=== PATIENT | female | born 1990 | race Caucasian/White ===

== ENCOUNTER 2018-05-06 06:55 | Inpatient (IN) | payer MEDICAID, SELFPAY ==
[2018-05-06 07:25] VITALS: BMI 27.3
[2018-05-06] MEDS: Lactated Ringers 1,000 ML 50 ML IV ×2 (07:40→16:06)
[2018-05-06 08:05] LABS: Hematocrit 35.1 % (37-47); Hemoglobin 11.5 g/dl (12.0-15.0); Mean Corp Hgb Conc 32.8 g/gl (32-36); Mean Corpuscular Hgb 28.3 pg (27.0-32.0); Mean Corpuscular Volume 86.5 fL (81-99); Platelet Count 322 K/mm3 (150-450); RBC Distribution Width CV 13.7 % (11.6-14.6); RBC Distribution Width SD 43.2 fl (35.1-43.9); Red Blood Count 4.06 M/mm3 (4.2-5.4); White Blood Count 10.6 K/mm3 (4.4-11.0)
[2018-05-06 08:07] LABS: Scan Indicated on CBC? Y/N NO
[2018-05-06] MEDS: Oxytocin 30 units/NS 500 ml 30 UNITS/500 ML IV.SOLN IV (08:30)
[2018-05-06] MEDS: 0.9% Normal Saline 100 ML IV.SOLN. INTRA-UTER (08:44)
--- NOTE | 2018-05-06 09:01 | PCM.HP.OB ---
- Problem List (1) IUGR (intrauterine growth restriction) Status: Acute (2) Tobacco use Status: Acute (3) History of marijuana use Status: Acute (4) History of anorexia nervosa Status: Acute (5) History of depression Status: Acute (6) History of anxiety Status: Acute (7) Encounter for induction of labor Status: Acute History Date of Admission: 05/06/18 Final BISI: 05/06/18 Final BISI Source: US <20 weeks Gestational age: 40 Weeks and 0 Days History of this : This is a 28 year-old, G [2], P [1001], at 39 weeks gestational age for Induction of labor due to IUGR. OB history with vacuum extraction for maternal exhaustion. Allergies No Known Allergies Allergy (Verified 02/23/17 01:26) Home Medications: Home Medications Penicillin V Potassium 500 mg PO 4X/DAY #19 tablet 02/23/17 Acetaminophen [Tylenol] 325 mg PO PRN 05/06/18 Omeprazole 20 mg PO 05/06/18 Pnv No.122/Iron/Folic Acid [ Multi Tablet] 1 each PO 05/06/18 Smoking Status: Current every day smoker Alcohol: None Substance Use Type: Marijuana Number of Fetus(es): 1 Heart Tracin, moderate variability, accels, no decels, Category 1 TOCO Analysis: No contractions History Past Pregnancies: Past Pregnancies Delivery Date Name GA/Weeks Outcome Route Weight Gender Labor Length Anesthesia Delivery Location Provider FOB Labs: RPR negative Rubella positive HBsAG negative HIV negative O positive GC/CT negative Urine tox screen positive cannabinoids Expected Delivery Method: Spontaneous Vaginal Review of Systems Constitutional: Denies: Chills, Fever, Weight Change HEENT: Denies: Head Aches, Sinus Congestion, Sinus Drainage Cardiovascular: Denies: Chest Pain, Palpitations Respiratory: Denies: Cough, Shortness of breath at rest, Sputum production Gastrointestinal: Denies: Abdominal Pain, Nausea, Vomiting Genitourinary: Denies: Dysuria Musculoskeletal: Denies: Joint Pain, Joint Tenderness Skin: Denies: Rash, Wounds Neurological: Denies: Numbness, Tingling, Focal weakness Psychiatric: Denies: Anxiety, Depression, Homicidal Ideations, Suicidal Ideations Hematologic/ Lymphatic: Denies: Easy Bruising, Easy Bleeding Physical Exam General: Alert, Oriented x3, No apparent distress HEENT: Atraumatic, Normocephalic. Negative for: Thyromegaly, Lymphadenopathy Cardiovascular: Regular rate, Regular Rhythm, No murmurs Lungs: Clear to auscultation, Normal air movement, No rhonchi, No wheeze Abdomen: Bowel Sounds Present, Gravid Extremities:: No edema Neurological: Deep Tendon Reflexes 2+/4 and Symmetrical, Neuro grossly intact BRIDGE BUILDER: Normal external genitalia Estimated gestational size: Appropriate for gestational size Presentation: Cephalic Cervix Dilation (cm): 1 - Dillard catheter inserted without difficulty. Patient tolerated well. Instilled with 30ml NS Station: -3 Effacement (%): 50 Assessment/Plan All Active Problems IUGR (intrauterine growth restriction) (Acute) Tobacco use (Acute) History of marijuana use (Acute) History of anorexia nervosa (Acute) History of depression (Acute) History of anxiety (Acute) Encounter for induction of labor (Acute) This is a 28 year-old, G [2], P [1001], at 39 weeks gestational age. A:Induction of Labor for IUGR Category 1 FHT P: 1) Admit to L&D for medically indicated IOL due to IUGR. Routine orders 2) Dillard catheter placement for cervical ripening and low dose Pitocin. 3) Urine tox screen, last use of marijuana 2 weeks ago. 4) Continuous monitoring. Planning epidural for pain management. 5) notified of patient admission and status. Collaborative physician at this time. 6) Planning LARC, Nexplanon Conchita Zarco, JUANCARLOS, CNM
[2018-05-06 09:15] LABS: Amphetamine Urine VISTA NEGATIVE (<1000 ng/mL); Barbiturate Urine VISTA NEGATIVE (< 200 ng/mL); Benzodiazepine Urine VISTA NEGATIVE (< 200 ng/mL); Cocaine Urine VISTA NEGATIVE (< 300 ng/mL); Ecstacy Urine VISTA NEGATIVE (< 500 ng/mL); Methadone Urine VISTA NEGATIVE (< 300 ng/mL); PCP Urine VISTA NEGATIVE (< 25 ng/mL); THC Urine VISTA POSITIVE (< 50 ng/mL); Vista UDS pH Range 6
--- NOTE | 2018-05-06 16:51 | PCM.PN.BLA ---
Progress Note Patient getting more uncomfortable with contractions. Breathing through them. Using nitrous oxide for some relief. Would like to have epidural soon as pain is getting to her tolerance level. Cervix is 4, soft, still posterior, 70% effaced and -2 station. Artificial rupture membranes was performed with return of moderate amount of clear fluid. heart tones are category 1. Continue expectant management. Estimated weight is less than 4000 g clinically and pelvis is clinically adequate to expect vaginal delivery. Patient may have epidural as needed. Patient continue Pitocin induction and titrate Pitocin as needed.
[2018-05-06] MEDS: Ondansetron 4 MG/2 ML Vial IV (17:45)
[2018-05-06] MEDS: fentaNYL-bupivacaine (epidural) 100 ML BAG EPIDURAL (18:03)
[2018-05-06] MEDS: Oxytocin 30 units/NS 500 ml 30 UNITS/500 ML IV.SOLN 334 UNITS IV (19:02)
--- NOTE | 2018-05-06 19:29 | PCM.OB.VAG ---
Vaginal Delivery Maternal Presentation: Medically Indicated Induction Method of Induction: Pitocin, Dillard Bulb, Amniotomy Medical Reason for Induction: - - SGA Amniotic Membrane Rupture Type: Artificial Amniotic Fluid Description: Clear Final BISI: 05/06/18 Gestational age: 40 Weeks and 0 Days Date of Procedure: 05/06/18 Pre-Operative Diagnosis: 39 week multigravida with suspected IUGR Post-Operative Diagnosis: labor Surgery/ Procedure Performed: Spontaneous Vaginal Delivery Type of Anesthesia: Epidural Description of Procedure: A vigorous female infant was delivered ALESSIO over an intact perineum. A loose nuchal cord ?1 was easily reduced. The remainder the was delivered with maternal pushing and gentle traction only in less than 15 seconds. The Pitocin infusion was initiated for active management of the third stage. The cord was clamped and cut after 1 minute. The infant was attended to by the waiting nursing staff. Pitocin was initiated after the was delivered and after 17 minutes of fundal massage, the placenta would not deliver spontaneously. At that point I manually extracted the placenta intact. Another gentle sweep of the uterus was performed to confirm there were no remaining membranes or placental fragments. The cervix and vagina were intact. Sponge and needle counts were correct. A vaginal sweep was completed by me. Presentation: ALESSIO Placental Delivery Description: Manual Removal Placenta Disposition: [facility] Cord Vessel Description: 3 Vessels Cord Entanglement: Around neck x 1, loose Drain: Dillard to straight drain Estimated Blood Loss: 300 A gender: Female (1 minute): 9 (5 minute): 9 Episiotomy Description: None Laceration: None Medications given after delivery: IV Pitocin Complications: None
[2018-05-06] MEDS: Oxytocin 30 units/NS 500 ml 30 UNITS/500 ML IV.SOLN 167 UNITS IV (19:32)
[2018-05-06] MEDS: Methylergonovine 0.2 MG/ML Ampul IM (19:57)
[2018-05-06] MEDS: 0.9% Saline Lock 10 ML Syringe IV (20:36)
[2018-05-06 23:13] VITALS: BP 107/65; PULSE 96; RESP 16; TEMP 36.6
[2018-05-07 03:55] VITALS: BP 107/57; PULSE 69; RESP 16; TEMP 36.8
[2018-05-07] MEDS: Naproxen 250 MG Tablet PO ×2 (04:00→12:20)
[2018-05-07 07:50] VITALS: BP 97/42; PULSE 62; RESP 16; TEMP 36.6; O2SAT 98
--- NOTE | 2018-05-07 08:32 | PCM.PN.OB ---
Patient Problems: Active and Suspected Problems IUGR (intrauterine growth restriction) (Acute) Tobacco use (Acute) History of marijuana use (Acute) History of anorexia nervosa (Acute) History of depression (Acute) History of anxiety (Acute) Encounter for induction of labor (Acute) Subjective: Pain well controlled, average lochia. - Physical Exam General: Alert, Cooperative, No apparent distress Abdomen: Soft, Non-Distended, Tender - Appropriate, fundus is firm and approximately 3 cm below the umbilicus. Vital Signs Temp Pulse Resp BP 98.2 F 69 16 107/57 L 05/07/18 03:55 05/07/18 03:55 05/07/18 03:55 05/07/18 03:55 Oxygen Delivery Method Room Air Weight: 74.5 kg Body Mass Index (BMI) 27.3 Intake and Output for Last 24 Hours 05/05/18 05/06/18 05/07/18 23:59 23:59 23:59 Intake Total 2073.9 / 2073.9 Output Total 1850 / 1850 300 / 300 Balance 223.9 / 223.9 -300 / -300 Laboratory Tests Past 24 Hrs 05/06/18 05/06/18 07:40 08:45 Urine Opiates Screen NEGATIVE Urine Methadone Screen NEGATIVE Ur Barbiturates Screen NEGATIVE Ur Phencyclidine Scrn NEGATIVE Ur Amphetamines Screen NEGATIVE U Methamphetamin-MDMA NEGATIVE U Benzodiazepines Scrn NEGATIVE Urine Cocaine Screen NEGATIVE U Cannabinoids Screen POSITIVE H Ur Drug Screen Comment Blood Type O POSITIVE Antibody Screen NEGATIVE Medical Necessity - Tobacco Use Smoking Status: Current every day smoker Assessment/Plan All Active Problems IUGR (intrauterine growth restriction) (Acute) Tobacco use (Acute) History of marijuana use (Acute) History of anorexia nervosa (Acute) History of depression (Acute) History of anxiety (Acute) Encounter for induction of labor (Acute) day #1 status post spontaneous vaginal delivery. Infant is doing well. Routine care. Likely discharge home tomorrow.
--- NOTE | 2018-05-07 08:35 | DCINST_ITS ---
Discharge Diet: No Restrictions Discharge Activity: Return to Normal Activity, May not drive while taking narcotic pain medications., May Shower May resume sexual activity in: 4-6 weeks Additional Activity Instructions:: Nothing in the vagina for 4-6 weeks. You may return to work/school in 6 weeks. Call your doctor if your incision/area has: Continuous Slow Oozing, Sudden Increased Bleeding, Increased Pain/ Swelling, Increased Redness, Foul Smelling Discharge Additional Instructions: If you experience any of the following, contact your healthcare provider. * Bleeding that soaks a pad every hour for 2 hours * Fever 100.4 or higher * Unrelieved incision or abdominal pain * Swelling, redness, discharge or bleeding from your incision or episiotomy site * Your incision begins to separate * Problems urinating (including inability to urinate or burning while urinating). * Visual changes * Severe headache * Flu-like symptoms * Pain or redness in one of both of your breasts * Pain, warmth, tenderness or swelling in your legs, especially the calf area * Frequent nausea and vomiting * Symptoms of depression or anxiety If you experience any of the following, call 911 or go to the nearest Emergency Room. * Chest pain * Problems breathing * Seizure activity * Partial or complete paralysis of a body part, slurred speech, weakness or drooping of the face, or a sudden inability to walk or hold your balance Allergies/Adverse Reactions: Allergies No Known Allergies Allergy (Verified 02/23/17 01:26) Medications to take at Discharge Omeprazole 20 mg PO 05/06/18 Pnv No.122/Iron/Folic Acid [ Multi Tablet] 1 each PO 05/06/18 Ibuprofen [Motrin] 800 mg PO TID PRN PRN #60 tablet 05/07/18 The following prescriptions were given: Ibuprofen [Motrin] 800 mg PO TID PRN PRN #60 tablet PRN Reason: Pain Please Follow Up With: Leanne Rascon MD - [phone] When: Call to make an appointment in your providers office in 1-2 and 6 weeks or sooner as needed. Primary Care Physician: Care Physician,No Primary [Primary Care Provider] - Test Results: Test results from this visit will be discussed in further detail at your follow- up appointment, if applicable.
[2018-05-07] MEDS: Senna/Docusate Sodium 1 Tablet PO (10:07)
[2018-05-07 12:00] VITALS: BP 112/69; PULSE 70; RESP 18; TEMP 36.6; O2SAT 97
[2018-05-07 16:00] VITALS: BP 94/57; PULSE 86; RESP 16; TEMP 36.6; O2SAT 97
--- NOTE | 2018-05-07 16:29 | CASEMGMT ---
Social Work Labor and Delivery Unit Consult received from the imcu nurse due to maternal substance use and history of depression. Noted that today the patient/mother of baby (MOB) answered yes to both questions on the PHQ2, and with a subsequent PHQ9 score of 5. Chart has been reviewed. Plan: See MOB 05.08.2018, likely in the morning, for social work assessment and determination of resources needs. -TANA Murguia, DIRECTOR OF COLLECTIONS AND ARCHIVES
[2018-05-07] MEDS: Acetaminophen 500 MG Tablet 1000 MG PO (18:26)
[2018-05-07 20:35] VITALS: BP 110/65; PULSE 74; RESP 16; TEMP 36.6; O2SAT 97
[2018-05-08 02:45] VITALS: BP 112/66; PULSE 66; RESP 14; TEMP 36.5; O2SAT 100
[2018-05-08 08:07] VITALS: BP 95/62; PULSE 59; RESP 18; TEMP 36.4; O2SAT 96
[2018-05-08] MEDS: Senna/Docusate Sodium 1 Tablet PO (08:15)
--- NOTE | 2018-05-08 08:38 | PCM.PN.OB ---
Patient Problems: Active and Suspected Problems IUGR (intrauterine growth restriction) (Acute) Tobacco use (Acute) History of marijuana use (Acute) History of anorexia nervosa (Acute) History of depression (Acute) History of anxiety (Acute) Encounter for induction of labor (Acute) Subjective: Patient doing well. Ambulating and voiding without difficulty. Tolerating regular diet without nausea or vomiting. Lochia decreasing. Breast-feeding without difficulty or breast complaints. Cramping is well controlled. Denies chest pain, shortness of breath, leg pain. - Physical Exam General: Alert, Oriented x3 HEENT: Atraumatic Lungs: - - No increased resp effort Abdomen: Soft, Non Tender, - - FF@U-1 Extremities: No edema, No Calf Tenderness Skin: No rashes Neurological: Neuro grossly intact Psych/Mental Status: Normal Affect, Appropriate Vital Signs Temp Pulse Resp BP Pulse Ox 97.5 F L 59 L 18 95/62 96 05/08/18 08:07 05/08/18 08:07 05/08/18 08:07 05/08/18 08:07 05/08/18 08:07 Oxygen Delivery Method Room Air Weight: 164 lb 3.91 oz Body Mass Index (BMI) 27.3 Intake and Output for Last 24 Hours 05/06/18 05/07/18 05/08/18 23:59 23:59 23:59 Intake Total 2073.9 / 2073.9 Output Total 1850 / 1850 300 / 300 Balance 223.9 / 223.9 -300 / -300 Medical Necessity - Tobacco Use Smoking Status: Current every day smoker Assessment/Plan All Active Problems IUGR (intrauterine growth restriction) (Acute) Tobacco use (Acute) History of marijuana use (Acute) History of anorexia nervosa (Acute) History of depression (Acute) History of anxiety (Acute) Encounter for induction of labor (Acute) day #2 s/p - Doing well and feels ready to go home - - PPBC: Desires Nexplanon. Reviewed r/b/a and will place prior to d/c home - Dispo: D/c home. Discharge instructions reviewed
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
[2018-05-08] MEDS: Etonogestrel 68 MG IMPLANT SQ (11:46)
[2018-05-08] MEDS: Naproxen 250 MG Tablet PO (11:55)
--- NOTE | 2018-05-08 12:09 | PCM.OP.BLANK ---
Problem List (1) Nexplanon insertion Status: Acute Operative Report Date of Procedure: 05/08/18 Preoperative diagnosis: desires long-term reversible contraception Postoperative diagnosis: as above Procedure: Nexplanon placement Performing physician: Marsha Cintron DO Complications: none EBL: minimal, less than 50 cc Insertion site was selected 9 cm from the medial epicondyle of the patient's left arm. Procedure area was prepped and draped in sterile fashion using ChloraPrep. 3 cc of 1% lidocaine was used for subcutaneous anesthesia. The Nexplanon trocar was inserted subcutaneously and the Nexplanon capsule was delivered subcutaneously. The trocar was removed from the insertion site. The Nexplanon capsule was palpated by the provider, as well as the patient. A pressure dressing was applied and patient was instructed to leave the pressure dressing on for 24 hours. The patient tolerated the procedure well without complications. Standard procedure care was explained and return precautions were given.
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
[2018-05-08 14:07] VITALS: BP 116/52; PULSE 76; RESP 16; TEMP 36.7; O2SAT 97
--- OUTSIDE RECORDS SUMMARY | 2018-06-29 22:34 | XMS RPT_ITS ---
:1990 Author Organization OHIP Care Team Providers Name Role Phone ILANA ISIDRO (DILIA) Attending Unavailable ROSI LITTLE (CNM) Attending Unavailable ANABEL, ROSI (CNM) Attending Unavailable ANABEL, ROSI (CNM) Referring Unavailable ALFONSO, EM A Attending Unavailable ANABEL, ROIS (CNM) Referring Unavailable ANABEL ROSI (CNM) Referring Unavailable ILANA ISIDRO (DILIA) Attending Unavailable ANABEL ROSI (CNM) Attending Unavailable ANABEL, ROSI (CNM) Referring Unavailable ANABEL, ROSI (CNM) Referring Unavailable CONCHITA ZARCO (CNM) Attending Unavailable ANABEL, ROSI (CNM) Referring Unavailable ALFONSO, EM A Attending Unavailable ANABEL ROSI (CNM) Referring Unavailable TAVARES BROWN Attending Unavailable ANABEL, ROSI (CNM) Referring Unavailable ANABEL, ROSI (CNM) Attending Unavailable ALFONSO, EM A Attending Unavailable KEVIN KARMAIDA Referring Unavailable WISWELL, BRISEYDA Attending Unavailable WISWELL, BRISEYDA Referring Unavailable CONCHITA ZARCO (CNM) Attending Unavailable ALFONSO, EM A Attending Unavailable ALFONSO, EM A Referring Unavailable ALFONSO, EM A Attending Unavailable ALFONSO, EM A Referring Unavailable DAVID STOVALL Attending Unavailable ALFONSO, EM A Referring Unavailable ALFONSO, EM A Attending Unavailable ALFONSO, EM A Referring Unavailable JUANJO ALEX Attending Unavailable ALFONSO, EM A Referring Unavailable ALFONSO, EM A Attending Unavailable WILMAN, DAVID L Referring Unavailable WILMAN, DAVID L Attending Unavailable WILMAN, DAVID L Referring Unavailable ALFONSO, EM A Attending Unavailable WILMAN, DAVID L Referring Unavailable ANABEL, ROSI (CNM) Attending Unavailable WILMAN, DAVID L Referring Unavailable ALFONSO, EM A Attending Unavailable WILMAN, DAVID L Referring Unavailable ALFONSO, EM A Attending Unavailable WILMAN, DAVID L Referring Unavailable ANABEL, ROSI (CNM) Attending Unavailable WILMAN, DAVID L Referring Unavailable ANABEL, ROSI (CNM) Attending Unavailable WILMAN, DAVID L Attending Unavailable WILMAN, DAVID L Referring Unavailable ALFONSO, EM A Attending Unavailable WILMAN, DAVID L Referring Unavailable Wilman, David Admitting Unavailable Wilman, David Attending Unavailable Primay Care Physicia, No Primary Care Unavailable PROBLEMS PROBLEMS DATE TYPE CONDITION / CODE ATTENDING STATUS SOURCE 02/21/2018 Active 28 weeks gestation NA Active [facility] of / [facility] Z3A.28(ICD-10) Repository 11/01/2017 Active Encounter for Active [facility] supervision of [facility] other normal Repository , first trimester / Z34.81(ICD-10) 11/01/2017 Active Encounter for Active [facility] screening for Repository nuchal translucency / Z36.82(ICD-10) 11/01/2017 Active Encounter for Active [facility] screening, Repository unspecified / Z36.9(ICD-10) 06/02/2017 Active Unknown / DWAINE Active [facility] UNK(Unknown) ILANA (DILIA) [facility] Repository PROCEDURES PROCEDURES No Procedure Records FoundRESULTS RESULTS PROGRESS Observed: 05/08/2018 Status: COMPLETED Source: [place] 3:02 PM [facility] RE[facility] HNO ID: [id number] Author: Ines Johnson LPN Service: (none) Author Type: (none) Type: Progress Notes Filed: 05/08/2018 3:05 PM Note Text: Pt delivered via at [facility] on 05/06/[address] Stovall. See OB Outcome note. Ines Johnson LPN OPERATIVE REPORT Observed: 05/08/2018 Status: F Source: [place] 12:13 PM [facility] REPOSITORY [facility] Medical Records Department [address] [place] [address] Operative Report 05/08/18 1209 MR#: [id number] Acct: [id number] Name: CARLY TIAN Rep #: [id number] : 1990 28 From: Briseyda Cintron DO PCP: Care Physician, No Primary Status: ADM IN Y Location: [place] [address] Problem List (1) Nexplanon insertion Status: Acute Operative Report Date of Procedure: 05/08/18 Preoperative diagnosis: desires long-term reversible contraception Postoperative diagnosis: as above Procedure: Nexplanon placement Performing physician: Briseyda Cintron DO Complications: none EBL: minimal, less than 50 cc Insertion site was selected 9 cm from the medial epicondyle of the patient's left arm. Procedure area was prepped and draped in sterile fashion using ChloraPrep. 3 cc of 1% lidocaine was used for subcutaneous anesthesia. The Nexplanon trocar was inserted subcutaneously and the Nexplanon capsule was delivered subcutaneously. The trocar was removed from the insertion site. The Nexplanon capsule was palpated by the provider, as well as the patient. A pressure dressing was applied and patient was instructed to leave the pressure dressing on for 24 hours. The patient tolerated the procedure well without complications. Standard procedure care was explained and return precautions were given. 05/08/18 1213 <Electronically signed by Briseyda Cintron DO> Date Briseyda Cintron DO CC: No Primary Care Physician; Briseyda Cintron DO Signed HOSP Observed: 05/08/2018 Status: COMPLETED Source: [place] 12:00 AM [facility] REPOSITORY Patient Update (WOOB) CARLY TIAN ([id number]) 1990 F Date Time Provider Department 05/08/18 DAVID STOVALL During your visit today, we recorded the following information about you: Ines Johnson LPN 05/08/2018 3:05 PM Signed Pt delivered via at [facility] on 05/06/[address] Stovall. See OB Outcome note. Ines Johnson LPN Allergies As of Date: 05/08/2018 (No Known Allergies) Date Reviewed: 05/03/2018 Reviewed by: Em Alfonso - Fully Assessed Prescriptions as of 05/08/2018 Sig: FLUTICASONE 50 MCG/ACTUATION * Use 2 Sprays in each nostril * Patient not taking: Reported on 04/30/2018 OMEPRAZOLE 20 MG CAPSULE,LINA* Take 1 capsule by mouth once * ACETAMINOPHEN 325 MG CAPSULE Take by mouth as needed. VITAMIN WITH CALCIUM* Take 1 tablet by mouth once d* Problem List As Of Date 05/08/2018 Noted Resolved SUPERVIS NORMAL 1ST PREG [Z34.00] INVALID FOR*01/11/2008 Dry skin [L85.3] INVALID FOR*03/07/2018 Brittle hair [L67.8] INVALID FOR*03/21/2018 Thoracic back pain [M54.6] INVALID FOR*03/21/2018 Tobacco abuse [Z72.0] INVALID FOR* Insomnia [G47.00] INVALID FOR*03/21/2018 More... Depression with anxiety [F41.8] INVALID FOR* More... Shoulder pain, acute [M25.519] INVALID FOR*03/07/2018 More... Anxiety [F41.9] INVALID FOR* More... Back pain [M54.9] INVALID FOR* More... GERD (gastroesophageal reflux disease) [K21.9] INVALID FOR* VANNA (obstructive sleep apnea) [G47.33] INVALID FOR*05/13/2014 OCD (obsessive compulsive disorder) [F42.9] INVALID FOR* RLS (restless legs syndrome) [G25.81] INVALID FOR* Sleep paralysis [G47.8] INVALID FOR* EMILIANO (generalized anxiety disorder) [F41.1] INVALID FOR* Dizzy spells [R42] INVALID FOR*03/21/2018 Acute appendicitis without mention of peritonit*INVALID FOR*03/07/2018 Nausea/vomiting in [O21.9] INVALID FOR*03/07/2018 More... Tobacco use in , antepartum [O99.330] INVALID FOR* More... Patient requested diagnostic testing [Z01.89] INVALID FOR*03/07/2018 More... History of marijuana use [Z87.898] INVALID FOR* More... Low-lying placenta [O44.40] INVALID FOR* More... Uterine size-date discrepancy in third trimeste*INVALID FOR* More... History of anorexia nervosa [Z86.59] INVALID FOR* More... Encounter Status:Closed by INES JOHNSON LPN on 05/08/18 DISCHARGE INSTRUCTION Observed: 05/07/2018 Status: F Source: [employer] 8:35 AM [facility] REPOSITORY [facility] Medical Records Department [address] [place] [address] Instructions for Home/Discharge Instructions 05/07/18 0834 MR#: [id number] Acct: [id number] Name: CARLY TIAN Rep #: [id number] : 1990 28 From: David Stovall MD PCP: Care Physician, No Primary Status: ADM IN Discharge Diet: No Restrictions Discharge Activity: Return to Normal Activity, May not drive while taking narcotic pain medications., May Shower May resume sexual activity in: 4-6 weeks Additional Activity Instructions:: Nothing in the vagina for 4-6 weeks. You may return to work/school in 6 weeks. Call your doctor if your incision/area has: Continuous Slow Oozing, Sudden Increased Bleeding, Increased Pain/ Swelling, Increased Redness, Foul Smelling Discharge Additional Instructions: If you experience any of the following, contact your healthcare provider. * Bleeding that soaks a pad every hour for 2 hours * Fever 100.4 or higher * Unrelieved incision or abdominal pain * Swelling, redness, discharge or bleeding from your incision or episiotomy site * Your incision begins to separate * Problems urinating (including inability to urinate or burning while urinating). * Visual changes * Severe headache * Flu-like symptoms * Pain or redness in one of both of your breasts * Pain, warmth, tenderness or swelling in your legs, especially the calf area * Frequent nausea and vomiting * Symptoms of depression or anxiety If you experience any of the following, call 911 or go to the nearest Emergency Room. * Chest pain * Problems breathing * Seizure activity * Partial or complete paralysis of a body part, slurred speech, weakness or drooping of the face, or a sudden inability to walk or hold your balance Allergies/Adverse Reactions: Allergies No Known Allergies Allergy (Verified 02/23/17 01:26) Medications to take at Discharge Omeprazole 20 mg PO 05/06/18 Pnv No.122/Iron/Folic Acid [ Multi Tablet] 1 each PO 05/06/18 Ibuprofen [Motrin] 800 mg PO TID PRN PRN #60 tablet 05/07/18 The following prescriptions were given: Ibuprofen [Motrin] 800 mg PO TID PRN PRN #60 tablet PRN Reason: Pain Please Follow Up With: David Stovall MD - [phone] When: Call to make an appointment in your providers office in 1-2 and 6 weeks or sooner as needed. Primary Care Physician: Care Physician,No Primary [Primary Care Provider] - Test Results: Test results from this visit will be discussed in further detail at your follow-up appointment, if applicable. 05/07/18 0835 <Electronically signed by David Stovall MD> Date David Stovall MD CC: No Primary Care Physician OPERATIVE REPORT Observed: 05/06/2018 Status: F Source: [employer] 7:33 PM [facility] REPOSITORY [facility] Medical Records Department [address] [place] [address] Operative Report 05/06/18 192 MR#: [id number] Acct: [id number] Name: YRNCARLY L Rep #: [id number] : 1990 28 From: David Stovall MD PCP: Care Physician, No Primary Status: ADM IN Location: [place] [address]1 Vaginal Delivery Maternal Presentation: Medically Indicated Induction Method of Induction: Pitocin, Dillard Bulb, Amniotomy Medical Reason for Induction: - - SGA Amniotic Membrane Rupture Type: Artificial Amniotic Fluid Description: Clear Final BISI: 05/06/18 Gestational age: 40 Weeks and 0 Days Date of Procedure: 05/06/18 Pre-Operative Diagnosis: 39 week multigravida with suspected IUGR Post-Operative Diagnosis: labor Surgery/ Procedure Performed: Spontaneous Vaginal Delivery Type of Anesthesia: Epidural Description of Procedure: A vigorous female infant was delivered ALESSIO over an intact perineum. A loose nuchal cord 1 was easily reduced. The remainder the infant was delivered with maternal pushing and gentle traction only in less than 15 seconds. The Pitocin infusion was initiated for active management of the third stage. The cord was clamped and cut after 1 minute. The was attended to by the waiting nursing staff. Pitocin was initiated after the infant was delivered and after 17 minutes of fundal massage, the placenta would not deliver spontaneously. At that point I manually extracted the placenta intact. Another gentle sweep of the uterus was performed to confirm there were no remaining membranes or placental fragments. The cervix and vagina were intact. Sponge and needle counts were correct. A vaginal sweep was completed by me. Presentation: ALESSIO Placental Delivery Description: Manual Removal Placenta Disposition: [facility] Cord Vessel Description: 3 Vessels Cord Entanglement: Around neck x 1, loose Drain: Dillard to straight drain Estimated Blood Loss: 300 Infant A gender: Female (1 minute): 9 (5 minute): 9 Episiotomy Description: None Laceration: None Medications given after delivery: IV Pitocin Complications: None 05/06/181932 <Electronically signed by David Stovall MD> Date David Stovall MD CC: No Primary Care Physician; David Stovall MD Signed HISTORY AND PHYSICAL Observed: 05/06/2018 Status: F Source: [employer] [facility] 4:47 PM [facility] REPOSITORY [facility] Medical Records Department [address] [place] [address] History and Physical 05/06/18 0901 MR#: [id number] Acct: [id number] Name: CARLY TIAN Rep #: [id number] : 1990 28 From: Conchita Zarco CNM PCP: Care Physician, No Primary Status: ADM IN Y Location: [id number] - Problem List (1) IUGR (intrauterine growth restriction) Status: Acute (2) Tobacco use Status: Acute (3) History of marijuana use Status: Acute (4) History of anorexia nervosa Status: Acute (5) History of depression Status: Acute (6) History of anxiety Status: Acute (7) Encounter for induction of labor Status: Acute History Date of Admission: 05/06/18 Final BISI: 05/06/18 Final BISI Source: US <20 weeks Gestational age: 40 Weeks and 0 Days History of this : This is a 28 year-old, G [2], P [1001], at 39 weeks gestational age for Induction of labor due to IUGR. OB history with vacuum extraction for maternal exhaustion. Allergies No Known Allergies Allergy (Verified 02/23/17 01:26) Home Medications: Home Medications Penicillin V Potassium 500 mg PO 4X/DAY #19 tablet 02/23/17 Acetaminophen [Tylenol] 325 mg PO PRN 05/06/18 Omeprazole 20 mg PO 05/06/18 Pnv No.122/Iron/Folic Acid [ Multi Tablet] 1 each PO 05/06/18 Smoking Status: Current every day smoker Alcohol: None Substance Use Type: Marijuana Number of Fetus(es): 1 Heart Tracin, moderate variability, accels, no decels, Category 1 TOCO Analysis: No contractions History Past Pregnancies: Past Pregnancies Delivery Name GA/Weeks Outcome Route WeiInfant GeLabor LenAnesthesiDelivery Provider FOB Date ght nder gth a Location Labs: RPR negative Rubella positive HBsAG negative HIV negative O positive GC/CT negative Urine tox screen positive cannabinoids Expected Infant Delivery Method: Spontaneous Vaginal Review of Systems Constitutional: Denies: Chills, Fever, Weight Change HEENT: Denies: Head Aches, Sinus Congestion, Sinus Drainage Cardiovascular: Denies: Chest Pain, Palpitations Respiratory: Denies: Cough, Shortness of breath at rest, Sputum production Gastrointestinal: Denies: Abdominal Pain, Nausea, Vomiting Genitourinary: Denies: Dysuria Musculoskeletal: Denies: Joint Pain, Joint Tenderness Skin: Denies: Rash, Wounds Neurological: Denies: Numbness, Tingling, Focal weakness Psychiatric: Denies: Anxiety, Depression, Homicidal Ideations, Suicidal Ideations Hematologic/ Lymphatic: Denies: Easy Bruising, Easy Bleeding Physical Exam General: Alert, Oriented x3, No apparent distress HEENT: Atraumatic, Normocephalic. Negative for: Thyromegaly, Lymphadenopathy Cardiovascular: Regular rate, Regular Rhythm, No murmurs Lungs: Clear to auscultation, Normal air movement, No rhonchi, No wheeze Abdomen: Bowel Sounds Present, Gravid Extremities:: No edema Neurological: Deep Tendon Reflexes 2+/4 and Symmetrical, Neuro grossly intact NETWORKING TECHNOLOGY INSTRUCTOR: Normal external genitalia Estimated gestational size: Appropriate for gestational size Presentation: Cephalic Cervix Dilation (cm): 1 - Dillard catheter inserted without difficulty. Patient tolerated well. Instilled with 30ml NS Station: -3 Effacement (%): 50 Assessment/Plan All Active Problems IUGR (intrauterine growth restriction) (Acute) Tobacco use (Acute) History of marijuana use (Acute) History of anorexia nervosa (Acute) History of depression (Acute) History of anxiety (Acute) Encounter for induction of labor (Acute) This is a 28 year-old, G [2], P [1001], at 39 weeks gestational age. A:Induction of Labor for IUGR Category 1 FHT P: 1) Admit to L AND D for medically indicated IOL due to IUGR. Routine orders 2) Dillard catheter placement for cervical ripening and low dose Pitocin. 3) Urine tox screen, last use of marijuana 2 weeks ago. 4) Continuous monitoring. Planning epidural for pain management. 5) notified of patient admission and status. Collaborative physician at this time. 6) Planning LARC, Nexplanon Cnochita Zarco APRN, MARLON 05/06/18 1108 <Electronically signed by Conchita Zarco CNM> Date Conchita Zarco CNM 05/06/18 1877<Electronically signed by David Stovall MD> Cosigner Signature: Date (if applicable) David Stovall MD CC: ЕКАТЕРИНА Zarco; No Primary Care Physician; David Stovall MD Signed URINE DRUG SCREEN Collected: 05/06/2018 Status: F Source: [place] ([place]) 8:45 AM [facility] REPOSITORY TYPE CODE TESTS RESULT OUT OF RANGE REFERENCE UNITS LAB L505.0075 TO BE Normal CONFIRMED Result Comment: CONFIRMATORY TESTING FOR ALL POSITIVE URINE DRUG SCREEN RESULTS WILL ONLY BE SENT OUT UPON PHYSICIAN ORDER. VISTA Urine Drug Screen methods provide only preliminary analytical test results. A more specific alternate chemical method must be used in order to obtain a confirmed analytical result. Gas chromatography/mass spectrometery (GC/MS) is the preferred confirmatory method. Clinical consideration and professional judgement should be applied to any drug of abuse test result, particularly when preliminary positive results are used. URINE TCA TESTING MUST BE ORDERED SEPARATELY. USE TEST MNEMONIC: [facility] LAB L505.5005 VISTA UDS PH 6 Normal LAB L505.5015 <1000 ng/mL AMPHETAMINES Normal NEGATIVE LAB L505.5025 < 200 ng/mL BARBITIURATES Normal NEGATIVE LAB L505.5035 < 200 ng/mL BENZODIAZIPINE Normal NEGATIVE LAB L505.5045 < 300 ng/mL COCAINE Normal NEGATIVE LAB L505.5055 < 500 ng/mL ECSTACY Normal NEGATIVE LAB L505.5065 < 300 ng/mL METHADONE Normal NEGATIVE LAB L505.5075 < 300 ng/mL OPIATES Normal NEGATIVE LAB L505.5085 < 25 ng/mL PCP Normal NEGATIVE LAB L505.5095 < 50 High ng/mL THC POSITIVE Performed By: #### L505.5000 #### [facility] [address] [place], [address] CBC-COMPLETE BLOOD CNT Collected: 05/06/2018 Status: F Source: [place] NO DIFF 7:40 AM [facility] REPOSITORY TYPE CODE TESTS RESULT OUT OF RANGE REFERENCE UNITS LAB L100.1000 4.4-11.0 K/mm3 Normal WBC 10.6 LAB L100.1200 4.2-5.4 M/mm3 Low RBC 4.06 LAB L100.1300 12.0-15.0 g/dl Low HGB 11.5 LAB L100.1400 37-47 % Low HCT 35.1 LAB L100.1500 81-99 fL Normal MCV 86.5 LAB L100.1600 27.0-32.0 pg Normal MCH 28.3 LAB L100.1700 32-36 g/gl Normal MCHC 32.8 LAB L100.1810 11.6-14.6 % Normal RDW CV 13.7 LAB L100.1820 35.1-43.9 fl Normal RDW SD 43.2 LAB L100.1900 150-450 K/mm3 Normal PLT 322 LAB L100.2000 6.2-12.0 fl Normal MPV 9.0 Performed By: #### L100.0500 #### [facility] [address] [place], [place], [address] TYPE AND SCREEN Collected: 05/06/2018 Status: F Source: [employer] 7:40 AM [facility] REPOSITORY Order Comment: Reason for Type AND Screen/Red Cells: ROUTINE TYPE CODE TESTS RESULT OUT OF RANGE REFERENCE UNITS LAB B10.0800 O Normal BLOOD TYPE GEL POSITIVE LAB B100.4000 Normal Antibody NEGATIVE Screen Performed By: #### B101.7450 #### [facility] [address] [place], [place], [address] PROGRESS Observed: 05/03/2018 Status: COMPLETED Source: [place] 12:13 PM [facility] REPOSITORY HNO ID: [id number] Author: Em Alfonso Service: (none) Author Type: Physician Type: Progress Notes Filed: 05/03/2018 12:14 PM Note Text: An intrauterine booker EGA = 38w3d Estimated Date of Delivery: 05/13/18 FGR at the 7 th % - Biophysical profile score (BPP) is 8/8. - Doppler evaluations: Umbilical artery S/D ratios is normal with forward blood flow The DV shows a normal a wave RECOMMENDATIONS: artery Dopplers - Quit smoking. - Kick counts twice daily - Delivery at 39 weeks if testing is reassuring PROGRESS Observed: 04/30/2018 Status: COMPLETED Source: [place] 1:05 PM [facility] REPOSITORY HNO ID: [id number] Author: Rosi Little Service: (none) Author Type: General Farm Manager Type: Progress Notes Filed: 04/30/2018 1:05 PM Note Text: CM - S: Carly Tian presents for a routine OB visit at 38w1d. She denies LOF, VB, DFM or regular cramping/contractions. Reports increased pelvic pressure and some scant pink spotting that started on Monday. Denies vaginal bleeding but was concerned with pink discharge as this never happened with my first. Today no spotting or discharge. Notes increased BHx contractions. Patient also notes softer stools today. O: See flow sheet Gen: A+O x 3, NAD Abdomen: NT x 4 quadrants, S=D Extremities: No edema in LE SSE: No discharge noted SVE = 1/50/-2 anterior and moderately firm A/P: 38w1d IUP. Normal , Possible Early Labor. RTO 1 Weeks for follow up. Call with LOF, VB, DFM or cramping/contractions. 1. 38 weeks gestation of -Labor s/s reviewed, [facility] teaching done -Reassurance provided - URINE OB DIP B/O Rosi Little APRN.CNM PROGRESS Observed: 04/25/2018 Status: COMPLETED Source: [place] 10:28 AM [facility] REPOSITORY HNO ID: [id number] Author: Em Alfonso Service: (none) Author Type: Physician Type: Progress Notes Filed: 04/25/2018 10:29 AM Note Text: An intrauterine booker EGA = 37w2d Estimated Date of Delivery: 05/13/18 FGR at the 7 th % - Biophysical profile score (BPP) is 8/8. - Doppler evaluations: Umbilical artery S/D ratios is normal with forward blood flow The DV shows a normal a wave RECOMMENDATIONS: - Weekly BPP including NST - Weekly umbilical artery Dopplers - Quit smoking. - Kick counts twice daily - Delivery at 39 weeks if testing is reassuring - At this point, there is no indication for delivery. HISTORY PHYSICAL Observed: 04/24/2018 Status: COMPLETED Source: [place] 5:58 PM [facility] REPOSITORY HNO ID: [id number] Author: Rosi Little Service: (none) Author Type: General Farm Manager Type: HANDP Filed: 04/24/2018 5:58 PM Note Text: M - S: Carly Tian presents for a routine OB visit at 37w2d. She denies LOF, VB, DFM or cramping/contractions. Weekly BPP for S<D - BPP = 8/8, SULEIMAN = 13 O: See flow sheet Gen: A+O x 3, NAD Abdomen: NT x 4 quadrants, FH = 34cm, CATIE by Yasmany's Extremities: No edema in LE SVE = Deferred A/P: 37w2d IUP. Normal . RTO 1 Weeks for follow up. Call with LOF, VB, DFM or cramping/contractions. 1. Encounter for supervision of other normal in third trimester -C teaching and PTL Precautions reviewed - URINE OB DIP B/O 2. 37 weeks gestation of -RTC weekly for visits, anticipate IOL at 39 weeks. Plan to schedule at n.v. - URINE OB DIP B/O Rosi Little APRN.CNM PROGRESS Observed: 04/19/2018 Status: COMPLETED Source: [place] 5:28 PM [facility] REPOSITORY HNO ID: [id number] Author: Em Alfonso Service: (none) Author Type: Physician Type: Progress Notes Filed: 04/19/2018 5:29 PM Note Text: An intrauterine booker EGA = 36w3d Estimated Date of Delivery: 05/13/18 FGR at the 6 th % - Biophysical profile score (BPP) is 8/8. - Doppler evaluations: Umbilical artery S/D ratios is normal with forward blood flow The umbilical vein Doppler shows no venous pulsations The DV shows a normal a wave The limitations of ultrasound have been discussed RECOMMENDATIONS: - Weekly BPP including NST - Weekly umbilical artery Dopplers - Quit smoking. - Kick counts twice daily - Delivery at 39 weeks if testing is reassuring - At this point, there is no indication for delivery. PROGRESS Observed: 04/19/2018 Status: COMPLETED Source: [place] 9:58 AM [facility] REPOSITORY HNO ID: [id number] Author: Rosi Little Service: (none) Author Type: General Farm Manager Type: Progress Notes Filed: 04/19/2018 10:01 AM Note Text: CM - S: Carly Tian presents for a routine OB visit at 36w4d. She denies LOF, VB, DFM or cramping/contractions. Weekly BPP for S<D and minimal weight gain noted - BPP = 8/8, EFW = 6%ile, SULEIMAN = 7. O: See flow sheet Gen: A+O x 3, NAD Abdomen: NT x 4 quadrants, Fundal Ht = 33cm Extremities: No edema A/P: 36w4d IUP. Normal . RTO 1 Weeks for follow up. Call with LOF, VB, DFM or cramping/contractions. 1. 36 weeks gestation of -GBS screening done - URINE OB DIP B/O - STREPTOCOCCUS B PCR 2. Encounter for supervision of other normal in third trimester -Labor Precautions reviewed, [facility] teaching done - URINE OB DIP B/O - STREPTOCOCCUS B PCR 3. Size less than dates -BPP = 8/8 and WNL - continue weekly BPP Rosi Little APRN.CNM GROUP B STREP PCR Collected: 04/18/2018 Status: F Source: [place] 11:45 AM [facility] REPOSITORY TYPE CODE TESTS RESULT OUT OF REFERENCE UNITS RANGE LAB GBPCRT Negative for GROUP Group B B STREP PCR Streptococcus by PCR. Performed By: #### GBPCR #### [facility] [address] [address] PROGRESS Observed: 04/16/2018 Status: COMPLETED Source: [place] 8:38 AM [facility] REPOSITORY HNO ID: [id number] Author: Joshua Farris Service: (none) Author Type: Physician Diesel Engine Mechanic Apprentice Type: Progress Notes Filed: 04/16/2018 10:18 AM Note Text: 04/16/2018 Patient presents with: Chest Congestion: cough and headache x 2 days, 36 weeks SUBJECTIVE: This is a 28 year old that is here today for Complaint(s) of chest congestion and cough x 2 days. Currently 36 weeks . + sinus congestion. Denies fever/chills, ear pain, sore throat. PAST MEDICAL HISTORY Diagnosis Date - Chlamydia 2012 - Complication of anesthesia - Dysthymic disorder Depression (non-psychotic) - Encounter for insertion or removal of intrauterine contraceptive device 03/07/2008 Mirena - Obstructive sleep apnea - PMH - PAST MEDICAL HISTORY OF STOMACH ULCER - depression - S/P appendectomy 07/2014 - Substance abuse (HCC) ALLERGIES Patient has no known allergies. MEDICATIONS Current Outpatient Prescriptions: omeprazole (PRILOSEC) 20 mg capsule Take 1 capsule by mouth once daily. acetaminophen (TYLENOL) 325 mg cap Take by mouth as needed. Vitamin w/ Iron ( PLUS, CALCIUM CARB,) 27 mg iron- 1 mg tab Take 1 tablet by mouth once daily. No current facility-administered medications for this visit. SOCIAL HISTORY Social History Marital status: Single Spouse name: Years of education: 12 Number of children: 1 Occupational History Occupation Employer Comment [employer] Social History Main Topics Smoking status: Current Every Day Smoker Packs/day: 0.00 Years: 16.00 Types: Cigarettes Last attempt to quit: 05/10/2007 Smokeless tobacco: Never Used Comment: 3 cigarette a day Alcohol use: Yes Comment: Rarely, not while Drug use: No Comment: has used marijuana in past but not since 04/2007 Sexual activity: Yes Partners with: Male control/protection: IUD Comment: Mirena Other Topics Concern Service No Blood Transfusions No Caffeine Concern No Occupational Exposure No Hobby Hazards No Sleep Concern Yes Stress Concern Yes Weight Concern No Special Diet No Back Care No Exercise No Bike Helmet No Seat Belt No Self-Exams No Social History Narrative Boyfriend, son Darrick (4 yo) - [facility] 10/2012 REVIEW OF SYSTEMS All other reviewed and negative other than HPI. OBJECTIVE: BP 122/70 Pulse 90 Temp 36.6 ?C (97.9 ?F) (Tympanic) Resp 18 Wt 76.2 kg (168 lb) LMP 08/06/2017 (Approximate) SpO2 97% BMI 27.96 kg/m? APPEARANCE Well appearing, alert, in no acute distress, well-hydrated, well nourished. EYES PERRLA, conjunctiva and sclera normal. EARS External ears normal, canals clear. TMs normal NATHALIA NOSE/SINUS Nares normal. Septum midline. Mucosa normal. No drainage. + mild maxillary sinus tenderness. THROAT normal, no erythema NECK Supple, no adenopathy HEART RRR with normal S1 and S2 LUNG clear to auscultation, No wheezing, rhonchi, rales. EXT no calf TTP or swelling. ASSESSMENT/PLAN: 1. Viral URI with cough - ICD9: 465.9, ICD10: J06.9, B97.89 - Discussed viral etiology and rationale for treatment. - Symptomatic treatment with prn analgesia - Supportive care with fluids and rest - The patient may also use OTC cough and cold meds as needed as approved by OB, warm salt water gargles, throat lozenges and/or OTC throat spray as needed and nasal saline gtts and suction prn. - Follow up in 3-5 days if symptoms persist or sooner if worsening of symptoms - FLUTICASONE 50 MCG/ACTUATION NASAL SPRAY,SUSPENSION Tylenol The patient indicates understanding of these issues and agrees with the plan. Joshua Farris PA-C CNOV Observed: 04/16/2018 Status: COMPLETED Source: [place] 8:15 AM [facility] REPOSITORY Office Visit (WSTR) CARLY TIAN ([id number]) 1990 F Date Time Provider Department 04/16/18 8:15 AM JOSHUA FARRIS) WSTR During your visit today, we recorded the following information about you: Temperature Pulse Respiration Blood pressure 97.9 degrees 90/minute 18/minute 122/70 Weight 76.2 kg Joshua Farris PA-C 04/16/2018 10:18 AM Signed 04/16/2018 Patient presents with: Chest Congestion: cough and headache x 2 days, 36 weeks SUBJECTIVE: This is a 28 year old that is here today for Complaint(s) of chest congestion and cough x 2 days. Currently 36 weeks . + sinus congestion. Denies fever/chills, ear pain, sore throat. PAST MEDICAL HISTORY Diagnosis Date - 2012 - Complication of anesthesia - Dysthymic disorder Depression (non-psychotic) - Encounter for insertion or removal of intrauterine contraceptive device 03/07/2008 Mirena - Obstructive sleep apnea - PMH - PAST MEDICAL HISTORY OF STOMACH ULCER - depression - S/P appendectomy 07/2014 - Substance abuse (HCC) ALLERGIES Patient has no known allergies. MEDICATIONS Current Outpatient Prescriptions: omeprazole (PRILOSEC) 20 mg capsule Take 1 capsule by mouth once daily. acetaminophen (TYLENOL) 325 mg cap Take by mouth as needed. Vitamin w/ Iron ( PLUS, CALCIUM CARB,) 27 mg iron- 1 mg tab Take 1 tablet by mouth once daily. No current facility-administered medications for this visit. SOCIAL HISTORY Social History Marital status: Single Spouse name: Years of education: 12 Number of children: 1 Occupational History Occupation Employer Comment [employer] Social History Main Topics Smoking status: Current Every Day Smoker Packs/day: 0.00 Years: 16.00 Types: Cigarettes Last attempt to quit: 05/10/2007 Smokeless tobacco: Never Used Comment: 3 cigarette a day Alcohol use: Yes Comment: Rarely, not while Drug use: No Comment: has used marijuana in past but not since 04/2007 Sexual activity: Yes Partners with: Male control/protection: IUD Comment: Danny Other Topics Concern Service No Blood Transfusions No Caffeine Concern No Occupational Exposure No Hobby Hazards No Sleep Concern Yes Stress Concern Yes Weight Concern No Special Diet No Back Care No Exercise No Bike Helmet No Seat Belt No Self-Exams No Social History Narrative Boyfriend, son Darrick (4 yo) - [facility] 10/2012 REVIEW OF SYSTEMS All other reviewed and negative other than HPI. OBJECTIVE: BP 122/70 Pulse 90 Temp 36.6 ?C (97.9 ?F) (Tympanic) Resp 18 Wt 76.2 kg (168 lb) LMP 08/06/2017 (Approximate) SpO2 97% BMI 27.96 kg/m? APPEARANCE Well appearing, alert, in no acute distress, well- hydrated, well nourished. EYES PERRLA, conjunctiva and sclera normal. EARS External ears normal, canals clear. TMs normal NATHALIA NOSE/SINUS Nares normal. Septum midline. Mucosa normal. No drainage. + mild maxillary sinus tenderness. THROAT normal, no erythema NECK Supple, no adenopathy HEART RRR with normal S1 and S2 LUNG clear to auscultation, No wheezing, rhonchi, rales. EXT no calf TTP or swelling. ASSESSMENT/PLAN: 1. Viral URI with cough - ICD9: 465.9, ICD10: J06.9, B97.89 - Discussed viral etiology and rationale for treatment. - Symptomatic treatment with prn analgesia - Supportive care with fluids and rest - The patient may also use OTC cough and cold meds as needed as approved by OB, warm salt water gargles, throat lozenges and/or OTC throat spray as needed and nasal saline gtts and suction prn. - Follow up in 3-5 days if symptoms persist or sooner if worsening of symptoms - FLUTICASONE 50 MCG/ACTUATION NASAL SPRAY,SUSPENSION Tylenol The patient indicates understanding of these issues and agrees with the plan. Joshua Farris PA-C Referring Provider: SELF [200] Allergies As of Date: 04/16/2018 (No Known Allergies) Date Reviewed: 04/16/2018 Reviewed by: Meghann Friedman Ma - Fully Assessed Reason for Visit: Chest Congestion [236] Cmt: cough and headache x 2 days, 36 weeks Primary Visit Diagnosis:Viral URI with cough [J06.9, B97.89] Order(s):fluticasone (FLONASE) 50 mcg/actuation nasal sprayUse 2 Sprays in each nostril once daily. Rinse mouth after use.Disp: 1 BottleRfl: 0 Prescriptions as of 04/16/2018 Sig: OMEPRAZOLE 20 MG CAPSULE,LINA* Take 1 capsule by mouth once * ACETAMINOPHEN 325 MG CAPSULE Take by mouth as needed. VITAMIN WITH CALCIUM* Take 1 tablet by mouth once d* FLUTICASONE 50 MCG/ACTUATION * Use 2 Sprays in each nostril * Problem List As Of Date 04/16/2018 Noted Resolved SUPERVIS NORMAL 1ST PREG [Z34.00] INVALID FOR*01/11/2008 Dry skin [L85.3] INVALID FOR*03/07/2018 Brittle hair [L67.8] INVALID FOR*03/21/2018 Thoracic back pain [M54.6] INVALID FOR*03/21/2018 Tobacco abuse [Z72.0] INVALID FOR* Insomnia [G47.00] INVALID FOR*03/21/2018 More... Depression with anxiety [F41.8] INVALID FOR* More... Shoulder pain, acute [M25.519] INVALID FOR*03/07/2018 More... Anxiety [F41.9] INVALID FOR* More... Back pain [M54.9] INVALID FOR* More... GERD (gastroesophageal reflux disease) [K21.9] INVALID FOR* VANNA (obstructive sleep apnea) [G47.33] INVALID FOR*05/13/2014 OCD (obsessive compulsive disorder) [F42.9] INVALID FOR* RLS (restless legs syndrome) [G25.81] INVALID FOR* Sleep paralysis [G47.8] INVALID FOR* EMILIANO (generalized anxiety disorder) [F41.1] INVALID FOR* Dizzy spells [R42] INVALID FOR*03/21/2018 Acute appendicitis without mention of peritonit*INVALID FOR*03/07/2018 Nausea/vomiting in [O21.9] INVALID FOR*03/07/2018 More... Tobacco use in , antepartum [O99.330] INVALID FOR* More... Patient requested diagnostic testing [Z01.89] INVALID FOR*03/07/2018 More... History of marijuana use [Z87.898] INVALID FOR* More... Low-lying placenta [O44.40] INVALID FOR* More... Uterine size-date discrepancy in third trimeste*INVALID FOR* More... History of anorexia nervosa [Z86.59] INVALID FOR* More... Prescriptions ordered this encounter Disp Refills Start End FLUTICASONE 50 MCG/ACTUATION NASAL S* 1 Mauro* 0 04/16/2018 Route: EACH NOSTRIL Sig: Use 2 Sprays in each nostril once daily. Rinse mouth after use. Letter Text Joshua Farris PA-C Urgent Care [address] [facility] [address] Dept: [phone] 04/16/2018 Carly Tian [address] [place] [id number] To Whom it May Concern: This is to certify that Carly Tian was seen at our office for medical care. If you have any questions please feel free to call. Sincerely: Joshua Farris PA-C Encounter Status:Closed by JOSHUA FARRIS PA-C on 04/16/18 PROGRESS Observed: 04/11/2018 Status: COMPLETED Source: [place] 2:13 PM [facility] REPOSIT[facility] HNO ID: [id number] Author: Em Alfonso Service: (none) Author Type: Physician Type: Progress Notes Filed: 04/11/2018 2:18 PM Note Text: An intrauterine booker EGA = 35w3d Estimated Date of Delivery: 05/13/18 FGR at the 7 th % - Biophysical profile score (BPP) is 8/8. - Doppler evaluations: Umbilical artery S/D ratios is normal with forward blood flow The umbilical vein Doppler shows no venous pulsations The DV shows a normal a wave The limitations of ultrasound have been discussed RECOMMENDATIONS: - Weekly BPP including NST - Weekly umbilical artery Dopplers - Quit smoking. - Kick counts twice daily - Growth scan in 1 week - Delivery at 39 weeks if testing is reassuring - At this point, there is no indication for delivery. PROGRESS Observed: 04/04/2018 Status: COMPLETED Source: [place] 2:48 PM [facility] REPOSITORY HNO ID: [id number] Author: Em Alfonso Service: (none) Author Type: Physician Type: Progress Notes Filed: 04/04/2018 2:50 PM Note Text: A booker intrauterine has been noted. EGA = 34w3d Estimated Date of Delivery: 05/13/18 FGR The heart rate is regular without dysrhythmias and falls within the normal range for gestational age. BPP = 8/8 Umbilical artery Dopplers are reassuring. The umbilical artery shows a forward blood flow. There is no evidence of hydrops. The placenta is fundal. RECOMMENDATIONS: - Weekly BPP including NST - Weekly umbilical artery Dopplers - Kick counts twice daily - Quit smoking - Growth scan after 2 weeks PROGRESS Observed: 04/04/2018 Status: COMPLETED Source: [place] 1:46 PM [facility] REPOSITORY HNO ID: [id number] Author: David Stovall Service: (none) Author Type: Physician Type: Progress Notes Filed: 04/04/2018 4:02 PM Note Text: SBDAVID Tian was given the 4P's screening tool. Carly answered as follows: OB Opioid Screening - Last Recorded (since 07/08/2017) Did any of your parents have a problem with alcohol or other drug use? ! YES Does your partner have a problem with alcohol or other drug use? No In the past, have you had difficulties in your life because of alcohol or other drugs, including prescription medications? No In the past month have you drunk any alcohol or used other drugs? No Are you taking medication for pain during the either prescribed or not? No Based on the screen and further questions, she is considered at moderate risk due to: used THC a few times to help w/ decreased appetite in . Cont. w/ about 4 cig a day, trying to cut back. No current THC use and d/w her risks of this w/ and not using currently. Patient offered brief intervention. In discussing this issue my medical advice was that Carly L Tian abstain. Her readiness to change(0 lowest - 10 highest) was 10. We discusssed her motivation to change based upon this response. Patient agreed that she would: abstain. Patient will return in 2 to discuss her progress with this plan. In total, 5 minutes of personal time was spent administering and interpreting the screen, plus performing a brief intervention. David Stovall MD PROGRESS Observed: 03/30/2018 Status: COMPLETED Source: [place] 11:55 AM [facility] REPOSITORY HNO ID: [id number] Author: Juanjo Alex Service: (none) Author Type: Physician Type: Progress Notes Filed: 03/30/2018 12:04 PM Note Text: Please see ultrasound report for details of this visit. Juanjo Alex M.D. TOXICOLOGY SCREEN,UR Collected: 03/21/2018 Status: F Source: [place] 9:50 AM [facility] REPOSITORY TYPE CODE TESTS RESULT OUT OF REFERENCE UNITS RANGE LAB UPCP2 Negative Negative Phencyclidin e, Urine Result Comment: Cutoff threshold at 25 ng/mL. LAB UBENZ2 Negative Benzodiazepines, Ur Negative Result Comment: Cutoff threshold at 200 ng/mL. LAB UCOC2 Negative Cocaine, Negative Urine Result Comment: Cutoff threshold at 300 ng/mL. LAB UAMPH2 Negative Amphetamines, Urine Negative Result Comment: Cutoff threshold at 1000 ng/mL. LAB UTHC2 Negative Cannabinoids, Abnormal Urine Preliminary Alert positive. Result Comment: Cutoff threshold at 50 ng/mL. LAB UOPI2 Negative Opiates, Negative Urine Result Comment: Cutoff threshold at 300 ng/mL. LAB UBARB2 Negative Barbiturates, Urine Negative Result Comment: Cutoff threshold at 200 ng/mL. LAB UETOH <11 mg/dL <11 Ethanol, Urine LAB UOXYC Negative Oxycodone, Negative Urine Result Comment: Cutoff threshold at 100 ng/mL. Comment: Immunoassay screen only. Cross reactivity with other substances can occur with immunoassay screening. Detection of any drug(s) in this urine toxicology panel is presumptive only. These tests are for med ica purposes only and should not be used for compliance monitoring, legal, or forensic use. Samples should be within normal physiological conditions (e.g. pH). This assay does not include adulteration/specimen validity testing. In clinical settings, confirmatory testing is at the practitioner's discretion [1]. If clinically indicated, confirmation by high specificity, quantitative methodology, which includes adulteration/spec imen validity testing, may be requested on the same specimen through Client Services ([phone]) if contacted within 48 hours of initial testing. [1]Substance Abuse and Mental Health Services Administration (2012). Clinical Drug Testing in Primary Care Technical Assistance Publication Series 32. Department of Health and Human Services, [place], p.10. These tests were developed and their performance characteristics determined by [facility]'s Eric Perez [facility] [place] ([facility]). They have not been cleared or a pproved by the FDA. [facility] is regulated under CLIA as qualified to perform high complexity testing. These tests are used for clinical purposes. They should not be regarded as investigational or for research. Performed By: #### UTOX2 #### [facility] [address] [address] PROGRESS Observed: 03/21/2018 Status: COMPLETED Source: [place] 9:44 AM [facility] REPOSITORY HNO ID: [id number] Author: Em Alfonso Service: (none) Author Type: Physician Type: Progress Notes Filed: 03/21/2018 11:22 AM Note Text: A booker intrauterine has been noted. EGA = 32w3d Estimated Date of Delivery: 05/13/18 FGR The heart rate is regular without dysrhythmias and falls within the normal range for gestational age. BPP = 8/8 Umbilical artery Dopplers are reassuring. The umbilical artery shows a forward blood flow. The DV shows a normal a wave There is no evidence of hydrops. The placenta is fundal. No maternal structural anatomical uterine of adnexal abnormalities are noted. The limitations of ultrasound have been addressed with the patient. Body mass index is 26.63 kg/m?. RECOMMENDATIONS: - Weekly BPP including NST - Weekly umbilical artery Dopplers - Kick counts twice daily - Quit smoking - Growth scan next week PROGRESS Observed: 2018 Status: COMPLETED Source: [place] 9:10 AM [facility] REPOSITORY HNO ID: [id number] Author: Em Alfonso Service: (none) Author Type: Physician Type: Progress Notes Filed: 2018 9:11 AM Note Text: An intrauterine booker EGA = 30w3d Estimated Date of Delivery: 05/13/18 FGR at the 8 th % - Biophysical profile score (BPP) is 8/8. - Doppler evaluations: Umbilical artery S/D ratios is normal with forward blood flow The umbilical vein Doppler shows no venous pulsations The DV shows a normal a wave The placenta is fundal RECOMMENDATIONS: - Weekly BPP including NST - Weekly umbilical artery Dopplers - Kick counts twice daily - Quit smoking - Growth scan in 2 weeks PROGRESS Observed: 03/07/2018 Status: COMPLETED Source: [place] 10:50 AM [facility] REPOSITORY HNO ID: [id number] Author: Em Alfonso Service: (none) Author Type: Physician Type: Progress Notes Filed: 03/07/2018 10:58 AM Note Text: An intrauterine booker EGA = 30w3d Estimated Date of Delivery: 05/13/18 FGR at the 8 th % The HC is 1 SD below the mean. This is still in the biological variability range. The intracranial anatomy appears normal. There are no calcifications, ventriculomegaly, and/or cortical abnormalities. The posterior fossa appears normal. - Biophysical profile score (BPP) is 8/8. - Doppler evaluations: Umbilical artery S/D ratios is normal with forward blood flow The umbilical vein Doppler shows no venous pulsations The DV shows a normal a wave The placenta is fundal The limitations of ultrasound have been discussed RECOMMENDATIONS: - Weekly BPP including NST - Weekly umbilical artery Dopplers - Kick counts twice daily - Quit smoking - Growth scan in 3 weeks CNPN Observed: 03/07/2018 Status: COMPLETED Source: [place] 12:00 AM [facility] REPOSITORY Telephone (WOOB) CARLY TIAN ([id number]) 1990 F Date Time Provider Department 03/07/18 CONCHITA ZARCO ([facility]) WOOB During your visit today, we recorded the following information about you: Ruma Cook RN 03/07/2018 3:03 PM Signed Patient 30w3d called and notified that appointment has been scheduled with Dr. Mendenhall for next Monday03/13/18 @ 9 Am. Instruct[address] patient [address] Dr[address] Mendenhall's office will contact her if for some reason appointment needs to be rescheduled. Patient verbalizes understanding. Ruma Cook RN Jin Cid Psr 03/07/2018 3:[address] Mendenhall gave me the confirmation that the time and date was fine. Therefore she will be seen on the . Jin Cid PSS Allergies As of Date: 03/07/2018 (No Known Allergies) Date Reviewed: 03/07/2018 Reviewed by: Em Alfonso - Fully Assessed Reason for Visit: Future Appointment [256] Prescriptions as of 03/07/2018 Sig: ACETAMINOPHEN 325 MG CAPSULE Take by mouth as needed. VITAMIN WITH CALCIUM* Take 1 tablet by mouth once d* Patient not taking: Reported on 02/21/2018 Problem List As Of Date 03/07/2018 Noted Resolved SUPERVIS NORMAL 1ST PREG [Z34.00] INVALID FOR*01/11/2008 Dry skin [L85.3] INVALID FOR*03/07/2018 Brittle hair [L67.8] INVALID FOR* Thoracic back pain [M54.6] INVALID FOR* Tobacco abuse [Z72.0] INVALID FOR* Insomnia [G47.00] INVALID FOR* More... Depression with anxiety [F41.8] INVALID FOR* More... Shoulder pain, acute [M25.519] INVALID FOR*03/07/2018 More... Anxiety [F41.9] INVALID FOR* More... Back pain [M54.9] INVALID FOR* More... GERD (gastroesophageal reflux disease) [K21.9] INVALID FOR* VANNA (obstructive sleep apnea) [G47.33] INVALID FOR*05/13/2014 OCD (obsessive compulsive disorder) [F42.9] INVALID FOR* RLS (restless legs syndrome) [G25.81] INVALID FOR* Sleep paralysis [G47.8] INVALID FOR* EMILIANO (generalized anxiety disorder) [F41.1] INVALID FOR* Dizzy spells [R42] INVALID FOR* Acute appendicitis without mention of peritonit*INVALID FOR*03/07/2018 Nausea/vomiting in [O21.9] INVALID FOR*03/07/2018 More... Tobacco use in , antepartum [O99.330] INVALID FOR* More... Patient requested diagnostic testing [Z01.89] INVALID FOR*03/07/2018 More... History of marijuana use [Z87.898] INVALID FOR* More... Low-lying placenta [O44.40] INVALID FOR* More... Uterine size-date discrepancy in third trimeste*INVALID FOR* More... History of anorexia nervosa [Z86.59] INVALID FOR* More... Encounter Status:Closed by RUMA COOK RN on 03/07/18 50G, 1HR GEST. Collected: 02/21/2018 Status: F Source: [facility] 10:57 AM [facility] REPOS[facility] TYPE CODE TESTS RESULT OUT OF REFERENCE UNITS RANGE LAB GLUP 74-134 mg/dL Glucose 112 Screen, Preg Result Comment: [place] [employer] (Radha/Thaddeus) guidelines state a gestational diabetes mellitus positive screen is made, in women not previously diagnosed with overt diabetes, when the 1 hr plasma glucose level is equal to or above 140 mg/dL. The [facility] [employer] [facility] [place] recommends a 135 mg/dL cutoff. Performed By: #### GLTGST #### [facility] [address] [place], [place] [address] CBC AND DIFFERENTIAL Collected: 02/21/2018 Status: F Source: [place] 10:57 AM [facility] REPOSITORY TYPE CODE TESTS RESULT OUT OF REFERENCE UNITS RANGE LAB WBC 3.70-11.00 k/uL WBC 10.08 LAB RBC 3.90-5.20 m/uL RBC 3.96 LAB HGB 11.5-15.5 g/dL Hemoglobin 11.9 LAB HCT 36.0-46.0 % Hematocrit 37.3 LAB MCV 80.0-100.0 fL MCV 94.2 LAB MCH 26.0-34.0 pG MCH 30.1 LAB MCHC 30.5-36.0 g/dL MCHC 31.9 LAB RDWCV 11.5-15.0 % RDW-CV 14.0 LAB PLTCT 150-400 k/uL Platelet Count 228 LAB MPV 9.0-12.7 fL MPV 9.7 LAB ANEUT % Neut% 76.9 LAB AANEUT 1.45-7.50 k/uL Abs Neut High 7.76 LAB ALYMP % Lymph% 14.8 LAB AALYMP 1.00-4.00 k/uL Abs Lymph 1.49 LAB AMONO % Glynn% 6.0 LAB AAMONO <0.87 k/uL Abs Glynn 0.60 LAB AEOS % Eosin% 2.0 LAB AAEOS <0.46 k/uL Abs Eosin 0.20 LAB ABASO % Baso% 0.3 LAB AABASO <0.11 k/uL Abs Baso 0.03 LAB AUNRBC 0 /100 WBC NRBCs 0.0 LAB ABNRBC <0.01 k/uL Absolute nRBC <0.01 LAB DTYP DTYPE Auto Diff Performed By: #### CBCDIF #### [facility] [address] [place], [place] [address] PROGRESS Observed: 02/07/2018 Status: COMPLETED Source: [place] 1:52 PM [facility] REPOSITORY HNO ID: [id number] Author: Em Alfonso Service: (none) Author Type: Physician Type: Progress Notes Filed: 02/07/2018 1:54 PM Note Text: A booker intrauterine The size is AGA Estimated Date of Delivery: 05/13/18 EGA = 26w3d The anatomy appears normal in the areas visualized. The amniotic fluid volume is normal. There is no evidence of effusions and/ or hydrops. The placenta is low lying still. The placenta is 1.9 cm from the internal os. Normal cervical length The limitations of ultrasound have been addressed with the patient. Body mass index is 25.89 kg/m?. RECOMMENDATIONS: - Follow up ultrasound recommended in 4 weeks for reevaluation of placental location - Discussed with the patient pelvic rest and avoidance of exercise - Delivery by section in the unlikely situation where the placenta remains within 2.0 cm of the internal cervical os at term. PROGRESS Observed: 01/26/2018 Status: COMPLETED Source: [place] 4:51 PM [facility] REPOSITORY HNO ID: [id number] Author: Rosi Little Service: (none) Author Type: General Farm Manager Type: Progress Notes Filed: 01/26/2018 4:52 PM Note Text: CM - S: Carly Tian presents for a routine OB visit at 24w5d. She denies LOF, VB, DFM or cramping/contractions. Patient reports that her N/V has decreased significantly. She is now able to tolerate most foods. O: See flow sheet Gen: A+O x 3, NAD Abd: NT x 4 quadrants, S=D Extremities: No edema in LE A/P: 24w5d IUP. Normal . RTO 2 Weeks for follow up. Call with LOF, VB, DFM or cramping/contractions. 1. Tobacco use in , antepartum -Patient praised on decreasing tobacco use to 3 cigs/day. Encourage continued goal of smoking cessation. - URINE OB DIP B/O 2. 24 weeks gestation of -C teaching and PTL precautions reviewed -RTC in 4 weeks for 1 hour GCT with n.v. - URINE OB DIP B/O Rosi Little APRN.CNM PROGRESS Observed: 12/28/2017 Status: COMPLETED Source: [place] 1:10 PM [facility] REPOSITORY HNO ID: [id number] Author: Em Alfonso Service: (none) Author Type: Physician Type: Progress Notes Filed: 12/29/2017 10:51 AM Note Text: A booker? fetus in utero with symmetric measurements Adequate growth (AGA). Estimated Date of Delivery: 05/13/18 EGA = 20w4d The anatomy appears normal. There are no evident malformations and /or effusions. No genetic markers are noted. The amniotic fluid volume is within normal limits. Low lying placenta The sensitivity of ultrasound in the detection of malformations overall is approximately 35%. RECOMMENDATIONS: - Follow up ultrasound recommended in 6 weeks for reevaluation of placental location - Discussed with the patient pelvic rest and avoidance of exercise - Delivery by section in the unlikely situation where the placenta remains within 2.0 cm of the internal cervical os at term. ERIKA Observed: 12/28/2017 Status: COMPLETED Source: [place] 12:00 AM [facility] REPOSITORY Telephone (WOOB) CARLY TIAN ([id number]) 1990 F Date Time Provider Department 12/28/17 ROSI LITTLE) WOСЕРГЕЙ During your visit today, we recorded the following information about you: Afia Santos RN 12/28/2017 4:07 PM Signed ----- Message from Rosi Little sent at 12/28/2017 3:42 PM EDT ----- Patient should be contact re: most recent ultrasound. Increased amniotic fluid noted. Further work-up is recommended including screening for GDM, NIPS and to order TORCH titers. Please pend orders for TORCH titers. Dr. Alfonso should also be contacted to order NIPS for this patient. GDM screening as planned at 28 weeks gestation. Low-lying placenta also noted. Repeat u/s and visit should be scheduled in [address] Alfonso. [place] Lopez RN 12/28/2017 4:14 PM Signed TORCH titers and u/s order pending. Do you want patient to be scheduled with MD for follow up results? Patient needs counseled prior to NIPT being ordered by [facility]. Afia Little APRN.CNM 12/28/2017 4:19 PM Signed Yes, please schedule this patient with an MD provider. [place] Lopez RN 12/28/2017 5:16 PM Signed Patient notified. Appointment scheduled. Afia Santos RN 12/29/2017 10:12 AM Signed U/s report being addended. Torch/parvo titers not needed - orders cancelled. Patient in office now for f/u with KJ. Afia Santos RN 12/29/2017 10:12 AM Signed Addended by: AFIA SANTOS RN on: 12/29/2017 10:12 AM Modules accepted: Orders Allergies As of Date: 12/28/2017 (No Known Allergies) Date Reviewed: 12/28/2017 Reviewed by: Em Alfonso - Fully Assessed Reason for Visit: Results [95] Primary Visit Diagnosis:Excessive growth affecting , antepartum, single or unspecified fetus [O36.60X0] Order(s):OBSTETRIC ULTRASOUND [facility] [[id number]] Order #: [id number]: 1 Prescriptions as of 12/28/2017 Sig: CYCLOBENZAPRINE 5 MG TABLET Take 1-2 po qhs prn Patient not taking: Reported on 12/27/2017 VITAMIN WITH CALCIUM* Take 1 tablet by mouth once d* PROMETHAZINE 25 MG TABLET Take 1 tablet by mouth every * Patient not taking: Reported on 12/27/2017 ONDANSETRON HCL 8 MG TABLET Take 1 tablet by mouth every * OMEPRAZOLE 20 MG CAPSULE,LINA* Take 1 capsule by mouth once * ALBUTEROL SULFATE HFA 90 MCG/* Inhale 2 Puffs as instructed * Problem List As Of Date 12/28/2017 Noted Resolved SUPERVIS NORMAL 1ST PREG [Z34.00] INVALID FOR*01/11/2008 Dry skin [L85.3] INVALID FOR* Brittle hair [L67.8] INVALID FOR* Thoracic back pain [M54.6] INVALID FOR* Tobacco abuse [Z72.0] INVALID FOR* Insomnia [G47.00] INVALID FOR* More... Depression with anxiety [F41.8] INVALID FOR* More... Shoulder pain, acute [M25.519] INVALID FOR* More... Anxiety [F41.9] INVALID FOR* More... Back pain [M54.9] INVALID FOR* More... GERD (gastroesophageal reflux disease) [K21.9] INVALID FOR* VANNA (obstructive sleep apnea) [G47.33] INVALID FOR*05/13/2014 OCD (obsessive compulsive disorder) [F42.9] INVALID FOR* RLS (restless legs syndrome) [G25.81] INVALID FOR* Sleep paralysis [G47.8] INVALID FOR* EMILIANO (generalized anxiety disorder) [F41.1] INVALID FOR* Dizzy spells [R42] INVALID FOR* Acute appendicitis without mention of peritonit*INVALID FOR* Nausea/vomiting in [O21.9] INVALID FOR* More... Tobacco use in , antepartum [O99.330] INVALID FOR* More... Patient requested diagnostic testing [Z01.89] INVALID FOR* More... History of marijuana use [Z87.898] INVALID FOR* More... Encounter Status:Closed by ROSI LITTLE CNM on 12/28/17 PROGRESS Observed: 11/29/2017 Status: COMPLETED Source: [place] 2:42 PM [facility] REPOSITORY HNO ID: [id number] Author: Rosi (Екатерина) Anabel Service: (none) Author Type: General Farm Manager Type: Progress Notes Filed: 11/29/2017 2:43 PM Note Text: CM - S: Carly Tian presents for a routine OB visit at 16w3d. She denies LOF, VB, DFM or cramping/contractions. Patient continues to decrease cigarette use, now < 1/2ppd. O: See flow sheet Gen: A+O x 3, NAD Abd: NT x 4 quadrants, S=D Extremities: No edema in LE A/P: 16w3d IUP. Normal . RTO 4 Weeks for follow up. Call with LOF, VB, DFM or cramping/contractions. 1. Encounter for supervision of other normal in second trimester -2nd trimester portion of Sequential Screen drawn today -2nd trimester anatomy scan at n.v. - URINE OB DIP B/O - OBSTETRIC ULTRASOUND [facility] 2. 16 weeks gestation of -Anticipatory health care teaching done - urged smoking cessation. - URINE OB DIP B/O Rosi Little, JUANCARLOS.ЕКАТЕРИНА WARNER SCRLisa SECOND Collected: 11/29/2017 Status: F Source: [facility] PATIENTS ONLY 10:42 AM [facility] REPOSIT[facility] TYPE CODE TESTS RESULT OUT OF REFERENCE UNITS RANGE LAB SE1PAP MoM 1.78 SE1 JACQUELYN A LAB SE2AFP MoM 1.00 SE2 AFP LAB SE2HCG MoM 0.42 SE2 hCG LAB SE2UE3 MoM 0.64 SE2 Unconj uE3 LAB SE2INH MoM 2.50 SE2 Dimrc Inhibin A LAB SE1HCG MoM 0.60 SE1 hCG LAB SE2INT Screen Negative SE2 Interp Screen Negative LAB SE2SDN SE2 Scrn Rsk 1:8300 Dn Synd LAB SE2ADN 1:750 SE2 Age Rsk Dn Snyd LAB SE2STS SE2 Scr Rsk 1:5400 Trsmy 13 LAB SE2STR SE2 Scr Rsk <1:45136 Trsmy18 LAB SE2SON SE2 Scr Rsk 1:5400 ONTD LAB SE2RS View Seq Scrn results in Second Trim Scanned Documents link when available. LAB SEQLRV SEQ Staff Reviewed by Review Rusty Lovett MD, PhD ([id number]) Performed By: #### SEQL2 #### [facility] [address] [place], [place] [address] PROGRESS Observed: 11/03/2017 Status: COMPLETED Source: [place] 11:34 AM [facility] REPOSITORY HNO ID: [id number] Author: Mauro Isidro Service: (none) Author Type: Physician Diesel Engine Mechanic Apprentice Type: Progress Notes Filed: 11/03/2017 12:24 PM Note Text: Chief Complaint Patient presents with: Pain: Patient is here for left shoulder/neck pain x 1 month; no injury; pain getting worse HPI Carly Tian is a 27 year old female who presents here today for Above Complaints.. For the past month she has been developing left sided neck and shoulder pain. Slowly worsening. States that she can barely lift left arm without pain Having weakness in the left arm as well. No injury. Past medical history, appointments, medications, allergies reviewed. 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)_*FL 03/07/2008 Mirena - LAPAROSCOPY, SURGICAL, APPENDECTOMY 07/13/14 early Family History FAMILY HISTORY Problem Relation Age of Onset - Alcohol/Drug Mother ETOH - Aneurysm Mother x 2, smoker - Cancer Father Throat - Other [OTHER] Sister Hysterectomy - Alcohol/Drug Maternal Grandmother ETOH - Cancer Maternal Grandmother lung cancer, smoker - Coronary Artery Disease Maternal Grandfather - Stroke Maternal Grandfather - Alcohol/Drug Paternal Grandmother ETOH - Arthritis Paternal Grandmother - Cancer Paternal Grandmother BONE CANCER - Hypertension Paternal Grandmother - Osteoporosis Paternal Grandmother - Hypertension Paternal Grandfather - Breast Cancer Maternal Aunt Patient Allergies ALLERGIES No Known Allergies Current Medications Current Outpatient Prescriptions on File Prior to Visit: Vitamin w/ Iron ( PLUS, CALCIUM CARB,) 27 mg iron- 1 mg tab Take 1 tablet by mouth once daily. promethazine (PHENERGAN) 25 mg tablet Take 1 tablet by mouth every 6 hours as needed. TAKE ONE TABLET EVERY 6 HOURS PRN ondansetron (ZOFRAN, HYDROCHLORIDE,) 8 mg tablet Take 1 tablet by mouth every 8 hours as needed for Nausea/Vomiting. omeprazole (PRILOSEC) 20 mg capsule Take 1 capsule by mouth once daily. albuterol HFA (VENTOLIN HFA) 90 mcg/actuation inhaler Inhale 2 Puffs as instructed every 4 hours as needed for Wheezing/Shortness of Breath. No current facility-administered medications on file prior to visit. Social History Social History Marital status: Single Spouse name: Years of education: 12 Number of children: 1 Occupational History Occupation Employer Comment [employer] Social History Main Topics Smoking status: Current Every Day Smoker Packs/day: 0.50 Years: 16.00 Types: Cigarettes Last attempt to quit: 05/10/2007 Smokeless tobacco: Never Used Alcohol use: Yes Comment: Rarely, not while Drug use: No Comment: has used marijuana in past but not since 04/2007 Sexual activity: Yes Partners with: Male control/protection: IUD Comment: Mirena Other Topics Concern Service No Blood Transfusions No Caffeine Concern No Occupational Exposure No Hobby Hazards No Sleep Concern Yes Stress Concern Yes Weight Concern No Special Diet No Back Care No Exercise No Bike Helmet No Seat Belt No Self-Exams No Social History Narrative Boyfriend, son Darrick (4 yo) - [facility] 10/2012 Review of Symptoms REVIEW OF SYSTEMS SEE HPI EXAM: BP 112/60 (BP Site: Right Arm, BP Position: Sitting, BP Cuff Size: Regular Adult) Pulse 76 Temp 37.1 ?C (98.7 ?F) (Tympanic) Resp 12 Wt 68 kg (150 lb) LMP 08/06/2017 (Approximate) BMI 24.96 kg/m? General Appearance: Well appearing, alert, in no acute distress, well-hydrated, well nourished.. Musculoskeletal: C-spine with pain in ROM due to muscle tightness. Pain to palp of left trap and supraspinatus muscles. Decreased active and passive ROM due to pain of L Shoulder. Active restricted to about 90deg and passive about 120 before pain interferes. Empty can test positive for pain and mild weakness. Neg rizzo. Peripheral Pulses: Normal. Neurologic: Gait normal. Reflexes normal and symmetric. Sensation grossly intact.. Health Maintenance List PAP EVERY 3 YEARS (21-30 YEAR OLDS) due on 04/14/2020 DTAP,TDAP,TD(2 - Td) due on 01/21/2024 ONE PNEUMOVAX PRIOR TO AGE 65 Completed INFLUENZA Completed Data reviewed n/a ASSESSMENT/PLAN: 1. Acute pain of left shoulder - ICD9: 719.41, ICD10: M25.512 (primary diagnosis) Discussed risk and benefits to treatments due to current . Can try the muscle relaxer at night Use tylenol for pain relief Start Physical Therapy If no improvement, will consult ortho before any imagining to decrease exposure - CONSULT TO PHYSICAL THERAPY 2. Neck pain - ICD9: 723.1, ICD10: M54.2 See above - CONSULT TO PHYSICAL THERAPY Follow up as needed in 2 weeks. ILANA ISIDRO PA-C CNOV Observed: 11/03/2017 Status: COMPLETED Source: [place] 11:20 AM [facility] REPOSITORY Office Visit (FAMPWS) CARLY TIAN ([id number]) 1990 F Date Time Provider Department 11/03/17 11:20 AM ISIDRO, ILANA(PA-C) FAMPWS During your visit today, we recorded the following information about you: Temperature Pulse Respiration Blood pressure 98.7 degrees 76/minute 12/minute 112/60 Weight 68 kg ILANA ISIDRO PA-C 11/03/2017 12:24 PM Signed Chief Complaint Patient presents with: Pain: Patient is here for left shoulder/neck pain x 1 month; no injury; pain getting worse HPI Carly Tian is a 27 year old female who presents here today for Above Complaints.. For the past month she has been developing left sided neck and shoulder pain. Slowly worsening. States that she can barely lift left arm without pain Having weakness in the left arm as well. No injury. Past medical history, appointments, medications, allergies reviewed. 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 03/07/2008 Mirena - LAPAROSCOPY, SURGICAL, APPENDECTOMY 07/13/14 early Family History FAMILY HISTORY Problem Relation Age of Onset - Alcohol/Drug Mother ETOH - Aneurysm Mother x 2, smoker - Cancer Father Throat - Other [OTHER] Sister Hysterectomy - Alcohol/Drug Maternal Grandmother ETOH - Cancer Maternal Grandmother lung cancer, smoker - Coronary Artery Disease Maternal Grandfather - Stroke Maternal Grandfather - Alcohol/Drug Paternal Grandmother ETOH - Arthritis Paternal Grandmother - Cancer Paternal Grandmother BONE CANCER - Hypertension Paternal Grandmother - Osteoporosis Paternal Grandmother - Hypertension Paternal Grandfather - Breast Cancer Maternal Aunt Patient Allergies ALLERGIES No Known Allergies Current Medications Current Outpatient Prescriptions on File Prior to Visit: Vitamin w/ Iron ( PLUS, CALCIUM CARB,) 27 mg iron- 1 mg tab Take 1 tablet by mouth once daily. promethazine (PHENERGAN) 25 mg tablet Take 1 tablet by mouth every 6 hours as needed. TAKE ONE TABLET EVERY 6 HOURS PRN ondansetron (ZOFRAN, HYDROCHLORIDE,) 8 mg tablet Take 1 tablet by mouth every 8 hours as needed for Nausea/Vomiting. omeprazole (PRILOSEC) 20 mg capsule Take 1 capsule by mouth once daily. albuterol HFA (VENTOLIN HFA) 90 mcg/actuation inhaler Inhale 2 Puffs as instructed every 4 hours as needed for Wheezing/Shortness of Breath. No current facility-administered medications on file prior to visit. Social History Social History Marital status: Single Spouse name: Years of education: 12 Number of children: 1 Occupational History Occupation Employer Comment [employer] Social History Main Topics Smoking status: Current Every Day Smoker Packs/day: 0.50 Years: 16.00 Types: Cigarettes Last attempt to quit: 05/10/2007 Smokeless tobacco: Never Used Alcohol use: Yes Comment: Rarely, not while Drug use: No Comment: has used marijuana in past but not since 04/2007 Sexual activity: Yes Partners with: Male control/protection: IUD Comment: Mirena Other Topics Concern Service No Blood Transfusions No Caffeine Concern No Occupational Exposure No Hobby Hazards No Sleep Concern Yes Stress Concern Yes Weight Concern No Special Diet No Back Care No Exercise No Bike Helmet No Seat Belt No Self-Exams No Social History Narrative Boyfriend, son Darrick (4 yo) - [facility] 10/2012 Review of Symptoms REVIEW OF SYSTEMS SEE HPI EXAM: BP 112/60 (BP Site: Right Arm, BP Position: Sitting, BP Cuff Size: Regular Adult) Pulse 76 Temp 37.1 ?C (98.7 ?F) (Tympanic) Resp 12 Wt 68 kg (150 lb) LMP 08/06/2017 (Approximate) BMI 24.96 kg/m? General Appearance: Well appearing, alert, in no acute distress, well-hydrated, well nourished.. Musculoskeletal: C-spine with pain in ROM due to muscle tightness. Pain to palp of left trap and supraspinatus muscles. Decreased active and passive ROM due to pain of L Shoulder. Active restricted to about 90deg and passive about 120 before pain interferes. Empty can test positive for pain and mild weakness. Neg rizzo. Peripheral Pulses: Normal. Neurologic: Gait normal. Reflexes normal and symmetric. Sensation grossly intact.. Health Maintenance List PAP EVERY 3 YEARS (21-30 YEAR OLDS) due on 04/14/2020 DTAP,TDAP,TD(2 - Td) due on 01/21/2024 ONE PNEUMOVAX PRIOR TO AGE 65 Completed INFLUENZA Completed Data reviewed n/a ASSESSMENT/PLAN: 1. Acute pain of left shoulder - ICD9: 719.41, ICD10: M25.512 (primary diagnosis) Discussed risk and benefits to treatments due to current . Can try the muscle relaxer at night Use tylenol for pain relief Start Physical Therapy If no improvement, will consult ortho before any imagining to decrease exposure - CONSULT TO PHYSICAL THERAPY 2. Neck pain - ICD9: 723.1, ICD10: M54.2 See above - CONSULT TO PHYSICAL THERAPY Follow up as needed in 2 weeks. VALERIE URBINA PA-C 11/03/2017 11:47 AM Signed Start Physical Therapy Follow up in 2 weeks if no improvement. May consider consult to ortho for continued pain. Referring Provider: SELF [200] Allergies As of Date: 11/03/2017 (No Known Allergies) Date Reviewed: 11/03/2017 Reviewed by: Josh) Dwaine - Fully Assessed Reason for Visit: Pain [78] Cmt: Patient is here for left shoulder/neck pain x 1 month; no injury; pain getting worse Primary Visit Diagnosis:Acute pain of left shoulder [M25.512] Other Visit Diagnosis:Neck pain [M54.2] Order(s):CONSULT TO PHYSICAL THERAPY [9032] Order #: [id number]: 1 cyclobenzaprine (FLEXERIL) 5 mg tabletTake 1-2 po qhs prnDisp: 20 tabletRfl: 0 Prescriptions as of 11/03/2017 Sig: VITAMIN WITH CALCIUM* Take 1 tablet by mouth once d* PROMETHAZINE 25 MG TABLET Take 1 tablet by mouth every * CYCLOBENZAPRINE 5 MG TABLET Take 1-2 po qhs prn ONDANSETRON HCL 8 MG TABLET Take 1 tablet by mouth every * OMEPRAZOLE 20 MG CAPSULE,LINA* Take 1 capsule by mouth once * ALBUTEROL SULFATE HFA 90 MCG/* Inhale 2 Puffs as instructed * Problem List As Of Date 11/03/2017 Noted Resolved SUPERVIS NORMAL 1ST PREG [Z34.00] INVALID FOR*01/11/2008 Dry skin [L85.3] INVALID FOR* Brittle hair [L67.8] INVALID FOR* Thoracic back pain [M54.6] INVALID FOR* Tobacco abuse [Z72.0] INVALID FOR* Insomnia [G47.00] INVALID FOR* More... Depression with anxiety [F41.8] INVALID FOR* More... Shoulder pain, acute [M25.519] INVALID FOR* More... Anxiety [F41.9] INVALID FOR* More... Back pain [M54.9] INVALID FOR* More... GERD (gastroesophageal reflux disease) [K21.9] INVALID FOR* VANNA (obstructive sleep apnea) [G47.33] INVALID FOR*05/13/2014 OCD (obsessive compulsive disorder) [F42.9] INVALID FOR* RLS (restless legs syndrome) [G25.81] INVALID FOR* Sleep paralysis [G47.8] INVALID FOR* EMILIANO (generalized anxiety disorder) [F41.1] INVALID FOR* Dizzy spells [R42] INVALID FOR* Acute appendicitis without mention of peritonit*INVALID FOR* Nausea/vomiting in [O21.9] INVALID FOR* More... Tobacco use in , antepartum [O99.330] INVALID FOR* More... Patient requested diagnostic testing [Z01.89] INVALID FOR* More... History of marijuana use [Z87.898] INVALID FOR* More... Other instructions from your clinician: Start Physical Therapy Follow up in 2 weeks if no improvement. May consider consult to ortho for continued pain. Prescriptions ordered this encounter Disp Refills Start End CYCLOBENZAPRINE 5 MG TABLET 20 t* 0 11/03/2017 Sig: Take 1-2 po qhs prn Disposition: Return in about 2 weeks (around 11/17/2017), or if symptoms worsen or fail to improve. Follow-up and Disposition History Recorded Encounter Status:Closed by ILANA GAYTAN on 11/03/17 PROGRESS Observed: 11/01/2017 Status: COMPLETED Source: [place] 9:01 PM [facility] RE[facility]IT[facility] HNO ID: [id number] Author: Rosi Little Service: (none) Author Type: General Farm Manager Type: Progress Notes Filed: 11/01/2017 9:01 PM Note Text: CM - S: Carly Tian presents for a routine OB visit at 12w3d. She denies LOF, VB, DFM or cramping/contractions. First trimester portion of sequential screen and NT screening done today. Patient reports continued nausea and food aversions, denies vomiting. Scant vaginal spotting noted last night after intercourse- but now resolved. O: See flow sheet Gen: A+O x 3, NAD Abd: NT x 4 quadrants, S=D Extremities: No edema in LE SSE: Deferred A/P: 12w3d IUP. Normal . RTO 4 Weeks for follow up. Call with LOF, VB, DFM or cramping/contractions. 1. 12 weeks gestation of -Bleeding precautions reviewed -Anticipate 2nd trimester portion of sequential screening to be drawn at n.v. - URINE OB DIP B/O 2. Encounter for screening for nuchal translucency - SEQUENTIAL SCRN FRST TRIMESTER; Future 3. First trimester screening - SEQUENTIAL SCRN SCND TRIMESTER; Future - SEQUENTIAL SCRN FRST TRIMESTER; Future Rosi Little APRN.CNM PROGRESS Observed: 11/01/2017 Status: COMPLETED Source: [place] 12:29 PM [facility] REPOSITORY HNO ID: [id number] Author: Em Alfonso Service: (none) Author Type: Physician Type: Progress Notes Filed: 11/01/2017 12:30 PM Note Text: A single intrauterine gestational sac is noted with a regular outline. There is no decidual hemorrhage. The yolk sac is visualized and shows normal shape and echogenicity. A living single fetus is noted. The heart rate is within normal range. The CRL corresponds to the gestational age. Estimated Date of Delivery: 05/13/18 EGA = 12w3d Negative NT screen for Trisomy 21. The sensitivity of nuchal translucency measurement for Trisomy 21 is ~60%. The anatomy appears normal in the areas visualized. RECOMMENDATIONS: - The patient requested the sequential screening. The test has been ordered - Ultrasound examination at 18 to 20 weeks CBC Collected: 11/01/2017 Status: F Source: [place] 12:02 PM [facility] REPOSITORY TYPE CODE TESTS RESULT OUT OF REFERENCE UNITS RANGE LAB WBC 3.70-11.00 k/uL WBC 10.90 LAB RBC 3.90-5.20 m/uL RBC 4.33 LAB HGB 11.5-15.5 g/dL Hemoglobin 12.6 LAB HCT 36.0-46.0 % Hematocrit 40.4 LAB MCV 80.0-100.0 fL MCV 93.3 LAB MCH 26.0-34.0 pG MCH 29.1 LAB MCHC 30.5-36.0 g/dL MCHC 31.2 LAB RDWCV 11.5-15.0 % RDW-CV 14.2 LAB PLTCT 150-400 k/uL Platelet Count 287 LAB MPV 9.0-12.7 fL MPV 9.8 LAB ABSNUC <0.01 k/uL Absolute nRBC <0.01 Performed By: #### CBC, SYPHGX, HBSAG, HIV12C, SEQL1, RUBIGG #### [place] [id number] [place] [id number] SYPHILIS IGG WITH Collected: 11/01/2017 Status: F Source: [facility] 12:02 [facility] REPOSITORY TYPE CODE TESTS RESULT OUT OF REFERENCE UNITS RANGE LAB SYPHQL Nonreactive Syphilis IgG, Nonreactive Qual Result Comment: In conjunction with this result, the immune status of the patient should be evaluated based on their clinical status, related risk factors, and other diagnostic test results. LAB SYPHLG AI Syphilis IgG <0.2 Result Comment: Antibody index is interpreted as follows: Non reactive SPECIMENS <=0.8 Weak reactive SPECIMENS 0.9 to 5.9 Reactive SPECIMENS >=6.0 Performed By: #### CBC, SYPHGX, HBSAG, HIV12C, SEQL1, RUBIGG #### [place] [address] HEPATITIS B SURF. AG Collected: 11/01/2017 Status: F Source: [place] 12:02 [facility] REPOSITORY TYPE CODE TESTS RESULT OUT OF REFERENCE UNITS RANGE LAB HBSAG Negative Hepatitis B Negative Surf. Ag Performed By: #### CBC, SYPHGX, HBSAG, HIV12C, SEQL1, RUBIGG #### [place] [address] HIV 12 COMBO (AG/AB) Collected: 11/01/2017 Status: F Source: [place] 12:02 [facility] REPOSITORY TYPE CODE TESTS RESULT OUT OF REFERENCE UNITS RANGE LAB HVAGAB Non Reactive HIV Non Reactive 12 Ag/Ab Result Comment: (NOTE) HIV Information: [place] Rev. Code 3701.243(E): This information has been disclosed to you from confidential records protected from disclosure by state law. You shall make no further disclosure of this information without the specific, written, and informed release of the individual to whom it pertains, or as otherwise permitted by state law. A general authorization for the release of medical or other information is not sufficient for the purpose of the release of HIV test results or diagnoses. Performed By: #### CBC, SYPHGX, HBSAG, HIV12C, SEQL1, RUBIGG #### [facility] [address] [place], [place] [address] SEQUENT SCRN FIRST Collected: 11/01/2017 Status: F Source: [place] [facility] PATIENTS ONLY 12:02 PM [facility] REPOSITORY TYPE CODE TESTS RESULT OUT OF REFERENCE UNITS RANGE LAB SE1PAP MoM 1.74 SE1 JACQUELYN A LAB SE1HCG MoM 0.60 SE1 hCG LAB SE1INT Final result pending second Final trimester SE1 result pending sample Interp second trimester sample LAB SE1SDN SE1 Scrn <1:[id number] Rsk Dn Synd LAB SE1ADN 1:560 SE1 Age Rsk Dn Synd LAB SE1STR SE1 Scr <1:[id number] Rsk Trsmy18 LAB SE1ATR SE1 Age 1:2100 Rsk Trsmy18 LAB SE1RS View Seq Scrn results in First Trim Scanned Documents link when available. LAB SEQLRV SEQ Staff Reviewed by Review Rusty Lovett MD, PhD ([id number]) Performed By: #### CBC, SYPHGX, HBSAG, HIV12C, SEQL1, RUBIGG #### [facility] [address] [place], [place] [address] RUBELLA IGG ANTIBODY Collected: 11/01/2017 Status: F Source: [place] 12:02 PM [facility] REPOSITORY TYPE CODE TESTS RESULT OUT OF RANGE REFERENCE UNITS LAB RUBGQL Negative Abnormal Rubella IgG Positive Alert Ab, Qual Result Comment: Sample is considered positive for IgG antibodies to rubella virus. A positive result indicates previous exposure to Rubella virus or vaccination. LAB RUBQNT Index Value Rubella IgG Ab 2.82 Result Comment: Index values are interpreted as follows: Negative specimens <0.90 Equivocol specimens 0.90 to 0.99 Positive specimens >0.99 The magnitude of the measured result is not indicative of the amount of antibody present. Performed By: #### CBC, SYPHGX, HBSAG, HIV12C, SEQL1, RUBIGG #### [place] [id number] [place], [place] [address] TYPE AND SCR,PRENATL Collected: 11/01/2017 Status: F Source: [place] 12:02 PM [facility] REPOSITORY TYPE CODE TESTS RESULT OUT OF REFERENCE UNITS RANGE LAB %ABR O ABO/RH(D) POSITIVE LAB % Antibody NEG Screen Performed By: #### TSPN #### [address] [address] GROUP A STREP BY Collected: 10/17/2017 Status: F Source: [place] PCR 1:20 PM [facility] REPOSITORY TYPE CODE TESTS RESULT OUT OF REFERENCE UNITS RANGE LAB GASSRC Throat Swab GAS Specimen Source LAB PCRGAS Negative for Group A Strep Group A PCR Streptococcus by PCR. Result Comment: This test was developed and its performance characteristics determined by [facility]'s [facility] [place] ([facility]). It has not been cleared or approved by the FDA. [facility] is regulated under CLIA as qualified to perform high-complexity testing. This test is used for clinical purposes. It should not be regarded as inv estigational or for research. Performed By: #### GASPCR #### [place] [id number] [place], [place] [address] PROGRESS Observed: 10/17/2017 Status: COMPLETED Source: [place] 11:35 AM [facility] REPOSITORY HNO ID: [id number] Author: Norma (Kaitlynn) Service: (none) Author Type: Nurse Practitioner Type: Progress Notes Filed: 10/17/2017 1:15 PM Note Text: SUBJECTIVE: Carly Tian is a 27 year old female. Who presents today with sore throat that started on Monday. +hcg. Hurts to swallow. Decreased appetite. +morning sickness was sick as well. No fever abd pain cp or sob No vag bleeding HPI PAST MEDICAL HISTORY Diagnosis Date - Chlamydia 2012 - Complication of anesthesia - Dysthymic disorder Depression (non-psychotic) - Encounter for insertion or removal of intrauterine contraceptive device 03/07/2008 Mirena - Obstructive sleep apnea - PMH - PAST MEDICAL HISTORY OF STOMACH ULCER - depression - S/P appendectomy 07/2014 - Substance abuse FAMILY HISTORY Problem Relation Age of Onset - Alcohol/Drug Mother ETOH - Aneurysm Mother x 2, smoker - Cancer Father Throat - Other [OTHER] Sister Hysterectomy - Alcohol/Drug Maternal Grandmother ETOH - Cancer Maternal Grandmother lung cancer, smoker - Coronary Artery Disease Maternal Grandfather - Stroke Maternal Grandfather - Alcohol/Drug Paternal Grandmother ETOH - Arthritis Paternal Grandmother - Cancer Paternal Grandmother BONE CANCER - Hypertension Paternal Grandmother - Osteoporosis Paternal Grandmother - Hypertension Paternal Grandfather - Breast Cancer Maternal Aunt Social History Substance Use Topics - Smoking status: Current Every Day Smoker Packs/day: 0.50 Years: 16.00 Types: Cigarettes Last attempt to quit: 05/10/2007 - Smokeless tobacco: Never Used - Alcohol use Yes Comment: Rarely, not while ALLERGIES No Known Allergies Current Outpatient Prescriptions: Vitamin w/ Iron ( PLUS, CALCIUM CARB,) 27 mg iron- 1 mg tab Take 1 tablet by mouth once daily. Disp: 30 tablet Rfl: 5 promethazine (PHENERGAN) 25 mg tablet Take 1 tablet by mouth every 6 hours as needed. TAKE ONE TABLET EVERY 6 HOURS PRN (Patient not taking: Reported on 10/17/2017 ) Disp: 20 tablet Rfl: 1 ondansetron (ZOFRAN, HYDROCHLORIDE,) 8 mg tablet Take 1 tablet by mouth every 8 hours as needed for Nausea/Vomiting. Disp: 20 tablet Rfl: 0 omeprazole (PRILOSEC) 20 mg capsule Take 1 capsule by mouth once daily. Disp: 90 capsule Rfl: 4 albuterol HFA (VENTOLIN HFA) 90 mcg/actuation inhaler Inhale 2 Puffs as instructed every 4 hours as needed for Wheezing/Shortness of Breath. Disp: 1 Inhaler Rfl: 0 No current facility-administered medications for this visit. OBJECTIVE: BP 102/70 Pulse 76 Temp 36.9 ?C (98.5 ?F) (Tympanic) Resp 16 Wt 68.5 kg (151 lb) LMP 08/06/2017 (Approximate) BMI 25.13 kg/m? ROS all other systems reviewed and are negative Physical Exam Constitutional: Well developed, well nourished, NAD, alert and oriented to person , place and time, in no apparent distress. ENT: Head is atraumatic, airway patent, mucosal membranes moist. tonsiles +1 no exudate, no HAM MARKER no trismus or voice changes Eyes: EOMI, PERRL, no drainage, vision unchanged Neck: supple with no palpable lymph nodes, no midline tenderness Cardiac: Normal rate and rhythm. Heart sounds S1, S2. No murmurs, rubs or gallops. Chest: nontender Respiratory: No retractions or use of accessory muscles. Breath sounds clear and equal bilaterally. GI: Abdomen soft and non-distended, without tenderness, rebound or guarding. Bowel sounds normal. : no CVA tenderness MS: no swelling tenderness or deformity in upper or lower extremities, no midline tenderness in thoracic or lumbar spine. Neuro: strength sensation and coordination intact. CN II-XII grossly intact, Skin: warm and dry with out rash, lesion or ecchymosis Psych: alert appropriate, speech clear It was a pleasure to take care of Carly Tian today. A rapid strep was obtained and was negative for strep throat. She will take tylenol for pain and increase her fluids. 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 They may return to the Urgent Care or go to the ER for worsening symptoms or concerns. Patient verbalized understanding of plan of care and is in agreement. ASSESSMENT/PLAN: 1. Sore throat - ICD9: 462, ICD10: J02.9 - RAPID STREP TEST B/O - GROUP A STREPTOCOCCUS BY PCR Norma Alcantar APRN.KAITLYNN CNOV Observed: 10/17/2017 Status: COMPLETED Source: [place] 11:15 AM [facility] REPOSITORY Office Visit (WSTR) CARLY TIAN ([id number]) 1990 F Date Time Provider Department 10/17/17 11:15 AM NORMA ALCANTAR (KAITLYNN) WSTR During your visit today, we recorded the following information about you: Temperature Pulse Respiration Blood pressure 98.5 degrees 76/minute 16/minute 102/70 Weight 68.5 kg Norma Alcantar APRN.KAITLYNN 10/17/2017 1:15 PM Signed SUBJECTIVE: Carly Tian is a 27 year old female. Who presents today with sore throat that started on Monday. +hcg. Hurts to swallow. Decreased appetite. +morning sickness was sick as well. No fever abd pain cp or sob No vag bleeding HPI PAST MEDICAL HISTORY Diagnosis Date - 2012 - Complication of anesthesia - Dysthymic disorder Depression (non-psychotic) - Encounter for insertion or removal of intrauterine contraceptive device 03/07/2008 Mirena - Obstructive sleep apnea - PMH - PAST MEDICAL HISTORY OF STOMACH ULCER - depression - S/P appendectomy 07/2014 - Substance abuse FAMILY HISTORY Problem Relation Age of Onset - Alcohol/Drug Mother ETOH - Aneurysm Mother x 2, smoker - Cancer Father Throat - Other [OTHER] Sister Hysterectomy - Alcohol/Drug Maternal Grandmother ETOH - Cancer Maternal Grandmother lung cancer, smoker - Coronary Artery Disease Maternal Grandfather - Stroke Maternal Grandfather - Alcohol/Drug Paternal Grandmother ETOH - Arthritis Paternal Grandmother - Cancer Paternal Grandmother BONE CANCER - Hypertension Paternal Grandmother - Osteoporosis Paternal Grandmother - Hypertension Paternal Grandfather - Breast Cancer Maternal Aunt Social History Substance Use Topics - Smoking status: Current Every Day Smoker Packs/day: 0.50 Years: 16.00 Types: Cigarettes Last attempt to quit: 05/10/2007 - Smokeless tobacco: Never Used - Alcohol use Yes Comment: Rarely, not while ALLERGIES No Known Allergies Current Outpatient Prescriptions: Vitamin w/ Iron ( PLUS, CALCIUM CARB,) 27 mg iron- 1 mg tab Take 1 tablet by mouth once daily. Disp: 30 tablet Rfl: 5 promethazine (PHENERGAN) 25 mg tablet Take 1 tablet by mouth every 6 hours as needed. TAKE ONE TABLET EVERY 6 HOURS PRN (Patient not taking: Reported on 10/17/2017 ) Disp: 20 tablet Rfl: 1 ondansetron (ZOFRAN, HYDROCHLORIDE,) 8 mg tablet Take 1 tablet by mouth every 8 hours as needed for Nausea/Vomiting. Disp: 20 tablet Rfl: 0 omeprazole (PRILOSEC) 20 mg capsule Take 1 capsule by mouth once daily. Disp: 90 capsule Rfl: 4 albuterol HFA (VENTOLIN HFA) 90 mcg/actuation inhaler Inhale 2 Puffs as instructed every 4 hours as needed for Wheezing/Shortness of Breath. Disp: 1 Inhaler Rfl: 0 No current facility-administered medications for this visit. OBJECTIVE: BP 102/70 Pulse 76 Temp 36.9 ?C (98.5 ?F) (Tympanic) Resp 16 Wt 68.5 kg (151 lb) LMP 08/06/2017 (Approximate) BMI 25.13 kg/m? ROS all other systems reviewed and are negative Physical Exam Constitutional: Well developed, well nourished, NAD, alert and oriented to person , place and time, in no apparent distress. ENT: Head is atraumatic, airway patent, mucosal membranes moist. tonsiles +1 no exudate, no HAM MARKER no trismus or voice changes Eyes: EOMI, PERRL, no drainage, vision unchanged Neck: supple with no palpable lymph nodes, no midline tenderness Cardiac: Normal rate and rhythm. Heart sounds S1, S2. No murmurs, rubs or gallops. Chest: nontender Respiratory: No retractions or use of accessory muscles. Breath sounds clear and equal bilaterally. GI: Abdomen soft and non-distended, without tenderness, rebound or guarding. Bowel sounds normal. : no CVA tenderness MS: no swelling tenderness or deformity in upper or lower extremities, no midline tenderness in thoracic or lumbar spine. Neuro: strength sensation and coordination intact. CN II-XII grossly intact, Skin: warm and dry with out rash, lesion or ecchymosis Psych: alert appropriate, speech clear It was a pleasure to take care of Carly Tian today. A rapid strep was obtained and was negative for strep throat. She will take tylenol for pain and increase her fluids. 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 They may return to the Urgent Care or go to the ER for worsening symptoms or concerns. Patient verbalized understanding of plan of care and is in agreement. ASSESSMENT/PLAN: 1. Sore throat - ICD9: 462, ICD10: J02.9 - RAPID STREP TEST B/O - GROUP A STREPTOCOCCUS BY PCR Norma Alcantar APRN.CYLINDRICAL MIXER Referring Provider: SELF [[id number]] Allergies As of Date: 10/17/2017 (No Known Allergies) Date Reviewed: 10/17/2017 Reviewed by: Janel Mahan LPN - Fully Assessed Reason for Visit: Cough [28] Cmt: post nasal drainage, sore throat AND bodyaches since yesterday. Primary Visit Diagnosis:Sore throat [J02.9] Order(s):RAPID STREP TEST B/O [8384211] Order #: [id number] GROUP A STREPTOCOCCUS BY PCR [SQGASPCR] Order #: [id number] Prescriptions as of 10/17/2017 Sig: VITAMIN WITH CALCIUM* Take 1 tablet by mouth once d* PROMETHAZINE 25 MG TABLET Take 1 tablet by mouth every * Patient not taking: Reported on 10/17/2017 ONDANSETRON HCL 8 MG TABLET Take 1 tablet by mouth every * OMEPRAZOLE 20 MG CAPSULE,LINA* Take 1 capsule by mouth once * ALBUTEROL SULFATE HFA 90 MCG/* Inhale 2 Puffs as instructed * Problem List As Of Date 10/17/2017 Noted Resolved SUPERVIS NORMAL 1ST PREG [Z34.00] INVALID FOR*01/11/2008 Dry skin [L85.3] INVALID FOR* Brittle hair [L67.8] INVALID FOR* Thoracic back pain [M54.6] INVALID FOR* Tobacco abuse [Z72.0] INVALID FOR* Insomnia [G47.00] INVALID FOR* More... Depression with anxiety [F41.8] INVALID FOR* More... Shoulder pain, acute [M25.519] INVALID FOR* More... Anxiety [F41.9] INVALID FOR* More... Back pain [M54.9] INVALID FOR* More... GERD (gastroesophageal reflux disease) [K21.9] INVALID FOR* VANNA (obstructive sleep apnea) [G47.33] INVALID FOR*05/13/2014 OCD (obsessive compulsive disorder) [F42.9] INVALID FOR* RLS (restless legs syndrome) [G25.81] INVALID FOR* Sleep paralysis [G47.8] INVALID FOR* EMILIANO (generalized anxiety disorder) [F41.1] INVALID FOR* Dizzy spells [R42] INVALID FOR* Acute appendicitis without mention of peritonit*INVALID FOR* Nausea/vomiting in [O21.9] INVALID FOR* More... Tobacco use in , antepartum [O99.330] INVALID FOR* More... Patient requested diagnostic testing [Z01.89] INVALID FOR* More... History of marijuana use [Z87.898] INVALID FOR* More... Encounter Status:Closed by NORMA ALCANTAR CNP on 10/17/17 TOXICOLOGY SCREEN,UR Collected: 10/03/2017 Status: F Source: [place] 9:30 AM [facility] REPOSITORY TYPE CODE TESTS RESULT OUT OF REFERENCE UNITS RANGE LAB UPCP2 Negative Negative Phencyclidin e, Urine Result Comment: Cutoff threshold at 25 ng/mL. LAB UBENZ2 Negative Benzodiazepines, Ur Negative Result Comment: Cutoff threshold at 200 ng/mL. LAB UCOC2 Negative Cocaine, Negative Urine Result Comment: Cutoff threshold at 300 ng/mL. LAB UAMPH2 Negative Amphetamines, Urine Negative Result Comment: Cutoff threshold at 1000 ng/mL. LAB UTHC2 Negative Cannabinoids, Abnormal Urine Preliminary Alert positive. Result Comment: Cutoff threshold at 50 ng/mL. LAB UOPI2 Negative Opiates, Negative Urine Result Comment: Cutoff threshold at 300 ng/mL. LAB UBARB2 Negative Barbiturates, Urine Negative Result Comment: Cutoff threshold at 200 ng/mL. LAB UETOH <11 mg/dL <11 Ethanol, Urine LAB UOXYC Negative Oxycodone, Negative Urine Result Comment: Cutoff threshold at 100 ng/mL. Comment: Immunoassay screen only. Cross reactivity with other substances can occur with immunoassay screening. Detection of any drug(s) in this urine toxicology panel is presumptive only. These tests are for med ical purposes only and should not be used for compliance monitoring, legal, or forensic use. In clinical settings, confirmatory testing is at the practitioner's discretion [1]. If clinically indicated, confirmation by high specificity, quantitative methodology may be requested on the same speci men through Client Services ([phone]) if contacted within 48 hours of initial testing. [1]Substance Abuse and Mental Health Services Administration (2012). Clinical Drug Testing in Primary Care Technical Assistance Publication Series 32. Department of Health and Human Services, [place], p.10. These tests were developed and their performance characteristics determined by [facility] [place] ([facility]). They have not been cleared or a pproved by the FDA. [facility] is regulated under CLIA as qualified to perform high complexity testing. These tests are used for clinical purposes. They should not be regarded as investigational or for research. Performed By: #### UTOX2 #### [address] [address] GC/CHLAMYDIA AMPLIF Collected: 10/03/2017 Status: F Source: [place] 9:30 AM [facility] REPOSITORY TYPE CODE TESTS RESULT OUT OF REFERENCE UNITS RANGE LAB GCCTSR GC/Chlam Amp Cervix Source LAB GCAMPL GC Negative Amplification for Neisseria gonorrhoeae by amplification. LAB CLAMPL Chlamydia Negative Amplif for Chlamydia trachomatis by amplification. Performed By: #### GCCT #### [address] [address] Observed: 10/03/2017 Status: F Source: [place] URINE CULTURE 9:30 AM [facility] REPOSITORY Sp. Request/Comment: - Specimen received in preservative Culture Result - No growth (<1,000 CFU/ml) Performed By: #### URCUL #### [place] [address] PROGRESS Observed: 10/03/2017 Status: COMPLETED Source: [place] 8:39 AM [facility] REPOSITORY HNO ID: [id number] Author: Rosi Lee) Anabel Service: (none) Author Type: General Farm Manager Type: Progress Notes Filed: 10/03/2017 10:00 AM Note Text: INITIAL OB ASSESSMENT OB Provider: Julita Buckley Ma HPI: Carly Tian is a 27 year old female here to establish Obstetrical Care. Patient's last menstrual period was 08/06/2017 (approximate). from OB Dating Form. Cycle length: 28-30 days Complaints: lower abdominal pain/cramping, Nausea and vomiting also noted. was unplanned but accepted. Obstetric History T1 L1 SAB0 TAB0 Ectopic0 Multiple0 Live Births1 Prior : never History of 4th degree laceration: No Patient's Risk Screening for delivery: History of abnormal pap: Yes. ASCUS noted Prior treatment for cervical dysplasia: none. History of STDs: None - chlamydia infection in past several years ago Tobacco use: Yes, reports 5-8 cigs/day Caffeine use: Yes, reports 12-16 oz coffee Drug use: Yes, marijuana use a week ago. Reports a few puffs when rarely used. 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 TAKE ONE TABLET EVERY 6 HOURS PRN Vitamin w/ Iron ( PLUS, CALCIUM CARB,) 27 mg iron- 1 mg tab Take 1 tablet by mouth once daily. ondansetron (ZOFRAN, HYDROCHLORIDE,) 8 mg tablet Take 1 tablet by mouth every 8 hours as needed for Nausea/Vomiting. omeprazole (PRILOSEC) 20 mg capsule Take 1 capsule by mouth once daily. albuterol HFA (VENTOLIN HFA) 90 mcg/actuation inhaler Inhale 2 Puffs as instructed every 4 hours as needed for Wheezing/Shortness of Breath. No current facility-administered medications on file prior to visit. Review of Systems: GENERAL: Negative for: Fever or Chills HEENT: Negative for: Headache, Impaired Vision, Ringing in Ears, Nosebleeds NECK: Negative for: Swelling, Pain, Stiffness RESPIRATORY: Negative for: Cough, Shortness of breath, Wheezing GASTROINTESTINAL: Negative for: Heartburn, Constipation, Diarrhea, Blood in stool and Positive for: Nausea and Vomiting MUSCULOSKELETAL: Negative for: Muscle or joint pain, stiffness, Joint swelling NEUROLOGIC/PSYCHIATRIC: Negative for: Weakness, Paralysis, Numbness, Tingling, Tremor, Anxiety, Depression, Memory loss SKIN: Negative for: Rash, Itching GENITOURINARY: Negative for: vaginal itching, vaginal discharge, hematuria or dysuria PHYSICAL EXAM: BP 112/60 Ht 5' 5 (1.65m) Wt 152 lb 6.4 oz (69.1kg) LMP 08/06/2017 BMI 25.36 kg/(m2). GENERAL: pleasant female in no apparent distress DERMATOLOGY: Normal, without lesions, non-icteric and non-hirsute NECK: Supple, full range of motion, no adenopathy and thyroid normal CHEST: Normal inspiratory effort BREAST: soft, non-tender, symmetric, no dominant mass, normal nipple-areolar complex, no lymphadenopathy and no nipple discharge ABDOMEN: soft, non-tender and no masses NEURO: alert and oriented x3,exam grossly non-focal PELVIS: External genitalia normal without lesions. Perineal body intact. No vaginal or cervical lesions. Cervix closed. Uterus 8 week size. No adnexal masses or tenderness. Clinical Pelvimetry: Pelvimetry clinically assessed as adequate Limited OB ultrasound exam: single intrauterine and positive cardiac activity ASSESSMENT: 27 year old at 8.2 wks gestational age PLAN: 1) Patient oriented to practice. Discussed nutrition, folic acid supplementation, dietary guidelines, exercise, smoking, alcohol, caffeine, and drug use. Discussed routine OB labs including STD/HIV. Discussed aneuploidy screening options including serum screening and nuchal translucency. CF carrier screening discussed and declined - done in a previous and was negative. 2) Smoking cessation discussed (both with marijuana use and cigarette smoking) - patient is interested in stopping completely Resources and tips provided 3) Patient continues to take antinausea medications without issue - reports symptoms are improving and that she has not needed to use marijuana to help decrease her nausea. Follow up in 4 weeks or sooner prn. SBIRT Carly Tian was given the 4's screening tool. Carly answered as follows: OB Opioid Screening - Last Recorded (since 01/06/2017) Did any of your parents have a problem with alcohol or other drug use? (!) Yes (Ftaher and mother issues with alcohol. father also had issues with drugs) Does your partner have a problem with alcohol or other drug use? No In the past, have you had difficulties in your life because of alcohol or other drugs, including prescription medications? No In the past month have you drunk any alcohol or used other drugs? No Are you taking medication for pain during the either prescribed or not? No Based on the screen and further questions, she is considered at moderate risk due to: Continued low level of use. Patient offered brief intervention and plan rescreen early third trimester. In discussing this issue my medical advice was that Carly Tian abstain. Her readiness to change(0 lowest - 10 highest) was 8. We discusssed her motivation to change based upon this response. Patient agreed that she would: abstain. Patient will return in 4 weeks to discuss her progress with this plan. In total, 10 minutes of personal time was spent administering and interpreting the screen, plus performing a brief intervention. Rosi Little APRN.ЕКАТЕРИНА PROGRESS Observed: 09/28/2017 Status: COMPLETED Source: [place] 2:09 PM [facility] REPOSITORY HNO ID: [id number] Author: Liz Whittignton RN Service: (none) Author Type: (none) Type: Progress Notes Filed: 09/28/2017 2:10 PM Note Text: #: 1, Date: [birth year], Sex: Male, Weight: 7 lb 10 oz (3.459 kg), GA: 40w1d, Delivery: Vaginal, Vacuum (Extractor), Apgar1: 8, Apgar5: 9, Living: Living, Comments: Outlet vacuum for exhaustion, pushed at +4 station for 25 minutes. #: 2, Date: None, Sex: None, Weight: None, GA: None, Delivery: None, Apgar1: None, Apgar5: None, Living: None, Comments: None CNNURSE Observed: 09/28/2017 Status: COMPLETED Source: [place] 9:30 AM [facility] REPOSITORY Nurse Visit (WOOB) CARLY TIAN ([id number]) 1990 F Date Time Provider Department 09/28/17 9:30 AM NURSE PNOB [facility], [facility] WOOB During your visit today, we recorded the following information about you: Last Period 08/06/17 Liz Whittington RN 09/28/2017 10:16 AM Signed SEQUENTIAL SCREENINGS The [facility] offers sequential screenings for women who are interested in screenings for chromosomal abnormalities and certain defects during a . The sequential screen combines ultrasound and blood tests to determine the risk of chromosomal abnormalities, including Down's Syndrome (Trisomy 21) and Trisomy 18, as well as open neural tube defects including spina bifida. Ultrasound examination is performed between 11 weeks and 13 weeks gestational age. Blood tests are drawn after the ultrasound and again later in the between 15 and 21 weeks gestational age. Please let your physician know if you are interested in this testing. It will require an appointment with our marine propulsion technician. This is not an ultrasound performed by a physician in our office during a routine visit. SIGNS AND SYMPTOMS OF LABOR 1. Contractions every 10 minutes or more often 2. Clear, pink, or brownish fluid (water) leaking from vagina 3. Feeling that baby is pushing down, pressure 4. Low, dull backache 5. Cramps that feel like a period 6. Cramps with or without diarrhea If you notice any of the above symptoms, contact our office at [phone] and ask to speak with a nurse. After hours, you can call doctors registry at [phone] OR call [facility] at [phone] and ask to have the doctor time motion analyst paged. If you consider this an emergency, dial 9-1-1 or go to your nearest emergency department. Cord-Blood Banking Up until recently, the umbilical cord--along with the blood that remained in it after a baby was born and the cord cut--was simply discarded by the hospital. Then, in the late 1980s, researchers discovered that cord blood possessed unusual properties that made it useful in the treatment of patients with some cancers and other illnesses. While the actual process of collecting cord blood is straightforward, many parents are not even aware that this option now exists, much less familiar with all the issues involved. The case for saving your baby's cord blood The blood running back and forth between your baby and the placenta is full of immature cells called stem cells. Unlike embryonic stem cells, which have the ability to develop into any type of body cell, cord-blood stem cells already are locked into a certain, vital function: making all the different components of the blood, such as platelets, white blood cells, and red blood cells-serving, in effect, like bone marrow. When transfused into a patient whose own blood cells have faulty genetic coding or have been destroyed by chemotherapy or other cancer treatments, the cord-blood cells can implant themselves in the bone marrow and generate legions of new, healthy cells. These days, cord-blood transplants most commonly are used in cancer patients when a donor can't be found for a bone-marrow transplant. The treatment is particularly effective in young patients-the [facility] Cord Blood Bank reports a 70 percent success rate in children, but only 20 to 40 percent in adults. Researchers envision improving those odds and see many future applications as well, such as curing sickle cell disease and other blood-related genetic illnesses. So there is a possibility that your child, or someone else, may need these super-healthy and versatile cells one day. The drawbacks Aside from not knowing about this medical option, the main reason most people do not save their baby's stem cells is cost. In a private blood bank, the initial costs run from $275 to $1,500. Most also charge a yearly storage fee of $50 to $95. The advantage of using a private bank is that your sample is saved for only you to use. An alternative to private banking Public cord-blood ferraro are an alternative. These cost no money to use, but your sample is not specifically saved for you. Another person with a more immediate need may use it. If the time should come that you need stem cells, yours may still be available, or you may use donations from other people without charge. You also can direct your sample to go to a relative with an immediate need if the blood type matches. Anyone else needing to use stem cells from a public bank who has not been a donor must pay for it, sometimes tens of thousands of dollars. Will my family benefit from saving stem cells? Right now, situations in which stem cells would be helpful are quite rare. As mentioned earlier, stem-cell transplants are most commonly used for rare genetic conditions and for some types of cancer, including leukemia and lymphoma. And even with these present uses, many questions remain. In cancer treatment, for example, some researchers are concerned about the wisdom of transplanting back into the child the same cells that already showed a propensity to become malignant. Doctors also aren't sure if the number of cells taken at the time of would be enough to treat a full-grown 16-year-old. It is also not completely clear how active the cells would be after years of being stored. The treatment is so new and rare, we just don't have the data yet to resolve these important issues. What do the experts say? The [employer] encourages philanthropic blood banking in public ferraro, but only for families with a current or potential need. Blood-bank proponents encourage any kind of banking, pointing out that research is getting closer and closer to many diverse, live-saving applications. How do I decide? Each family must weigh the pros and cons for themselves. Some families say that any cost is worth their peace of mind. Others say that in the face of uncertainty about the effectiveness of the treatment, they will use their resources elsewhere. Some choose the middle ground of donating publicly, knowing that their sample might benefit another family, if not themselves. For more information, ask your doctor or nurse, and be sure to check out our article on the technical aspects of cord-blood banking. Technical Aspects of Cord-Blood Banking If you are interested in storing your baby's umbilical-cord blood because of its possible use in emerging medical treatments, you must make arrangements with a blood bank before your child is born. The collection procedure is quite simple: After delivery of the baby, the umbilical cord is clamped and cut in the usual way. The blood that remains in the umbilical-cord vessels is then collected in sterile containers. The blood may be removed from the cord with a large needle or allowed to flow freely, depending on the company's collection system. The containers may look like large test tubes or like the plastic bags used in a blood bank. It does not cause the mother or the baby any pain to collect the blood, and no blood is taken that the baby needs at the moment. The nurse, quality control operator, or physician will then label the samples, check them over with you, and package them for a special pickup arranged with a commercial carrier. When the blood arrives at the blood-bank facility, it is processed and the parents are notified. It is then kept in an advanced storage system for years. How do I know that my sample is safe? Power outages and bankruptcies potentially could threaten any organization, but so far none have been reported. It is to be hoped that the scientists in these ferraro would arrange for safe transfer to another facility if the need arose. YOU MUST MAKE ARRANGEMENTS AHEAD OF TIME! Public cord-blood ferraro--DONATION: [employer] [phone] [facility]'s Placental Blood Program, [facility] Umbilical Cord Blood Bank, Private cord-blood ferraro--SAVING FOR YOUR OWN USE: [employer] [place], (I think this is the least expensive) [employer] [phone] [employer], ([phone]) [employer] [place] Cord Blood [facility], [phone] 700-CORD Cells, [phone] [place] [facility], Cord Blood Registry, ([phone]) [employer]OOD [employer], An Internet search may provide you with additional listings. Liz Whittington RN 09/28/2017 2:10 PM Signed #: 1, Date: [birth year], Sex: Male, Weight: 7 lb 10 oz (3.459 kg), GA: 40w1d, Delivery: Vaginal, Vacuum (Extractor), Apgar1: 8, Apgar5: 9, Living: Living, Comments: Outlet vacuum for exhaustion, pushed at +4 station for 25 minutes. #: 2, Date: None, Sex: None, Weight: None, GA: None, Delivery: None, Apgar1: None, Apgar5: None, Living: None, Comments: None Referring Provider: SELF [200] Allergies As of Date: 09/28/2017 (No Known Allergies) Date Reviewed: 09/28/2017 Reviewed by: Liz Whittington RN - Fully Assessed Reason for Visit: Care [86] Cmt: Pre-New OB Primary Visit Diagnosis:H/O depression, currently [O99.89, Z86.59] Other Visit Diagnoses:Nausea/vomiting in [O21.9] Tobacco use in , antepartum [O99.330] Patient requested diagnostic testing [Z01.89] Order(s):[facility] ED [facility]ARE [facility] [[id number]] Order #: [id number]: 1 FUTURE [facility] [[id number]] Order #: [id number]. #:[id number]: 1 Prescriptions as of 09/28/2017 Sig: VITAMIN WITH CALCIUM* Take 1 tablet by mouth once d* ONDANSETRON HCL 8 MG TABLET Take 1 tablet by mouth every * OMEPRAZOLE 20 MG CAPSULE,LINA* Take 1 capsule by mouth once * ALBUTEROL SULFATE HFA 90 MCG/* Inhale 2 Puffs as instructed * Problem List As Of Date 09/28/2017 Noted Resolved SUPERVIS NORMAL 1ST PREG [Z34.00] INVALID FOR*01/11/2008 Dry skin [L85.3] INVALID FOR* Brittle hair [L67.8] INVALID FOR* Thoracic back pain [M54.6] INVALID FOR* Tobacco abuse [Z72.0] INVALID FOR* Insomnia [G47.00] INVALID FOR* More... Depression with anxiety [F41.8] INVALID FOR* More... Shoulder pain, acute [M25.519] INVALID FOR* More... Anxiety [F41.9] INVALID FOR* More... Back pain [M54.9] INVALID FOR* More... GERD (gastroesophageal reflux disease) [K21.9] INVALID FOR* VANNA (obstructive sleep apnea) [G47.33] INVALID FOR*05/13/2014 OCD (obsessive compulsive disorder) [F42.9] INVALID FOR* RLS (restless legs syndrome) [G25.81] INVALID FOR* Sleep paralysis [G47.8] INVALID FOR* EMILIANO (generalized anxiety disorder) [F41.1] INVALID FOR* Dizzy spells [R42] INVALID FOR* Acute appendicitis without mention of peritonit*INVALID FOR* Nausea/vomiting in [O21.9] INVALID FOR* More... Tobacco use in , antepartum [O99.330] INVALID FOR* More... Patient requested diagnostic testing [Z01.89] INVALID FOR* More... Other instructions from your clinician: SEQUENTIAL SCREENINGS The [facility] offers sequential screenings for women who are interested in screenings for chromosomal abnormalities and certain defects during a . The sequential screen combines ultrasound and blood tests to determine the risk of chromosomal abnormalities, including Down's Syndrome (Trisomy 21) and Trisomy 18, as well as open neural tube defects including spina bifida. Ultrasound examination is performed between 11 weeks and 13 weeks gestational age. Blood tests are drawn after the ultrasound and again later in the between 15 and 21 weeks gestational age. Please let your physician know if you are interested in this testing. It will require an appointment with our marine propulsion technician. This is not an ultrasound performed by a physician in our office during a routine visit. SIGNS AND SYMPTOMS OF LABOR 1. Contractions every 10 minutes or more often 2. Clear, pink, or brownish fluid (water) leaking from vagina 3. Feeling that baby is pushing down, pressure 4. Low, dull backache 5. Cramps that feel like a period 6. Cramps with or without diarrhea If you notice any of the above symptoms, contact our office at [phone] and ask to speak with a nurse. After hours, you can call doctors registry at [phone] OR call [facility] at [phone] and ask to have the doctor time motion analyst paged. If you consider this an emergency, dial 9--1 or go to your nearest emergency department. Cord-Blood Banking Up until recently, the umbilical cord--along with the blood that remained in it after a baby was born and the cord cut--was simply discarded by the hospital. Then, in the late 1980s, researchers discovered that cord blood possessed unusual properties that made it useful in the treatment of patients with some cancers and other illnesses. While the actual process of collecting cord blood is straightforward, many parents are not even aware that this option now exists, much less familiar with all the issues involved. The case for saving your baby's cord blood The blood running back and forth between your baby and the placenta is full of immature cells called stem cells. Unlike embryonic stem cells, which have the ability to develop into any type of body cell, cord-blood stem cells already are locked into a certain, vital function: making all the different components of the blood, such as platelets, white blood cells, and red blood cells-serving, in effect, like bone marrow. When transfused into a patient whose own blood cells have faulty genetic coding or have been destroyed by chemotherapy or other cancer treatments, the cord-blood cells can implant themselves in the bone marrow and generate legions of new, healthy cells. These days, cord-blood transplants most commonly are used in cancer patients when a donor can't be found for a bone-marrow transplant. The treatment is particularly effective in young patients- the [facility] Cord Blood Bank reports a 70 percent success rate in children, but only 20 to 40 percent in adults. Researchers envision improving those odds and see many future applications as well, such as curing sickle cell disease and other blood-related genetic illnesses. So there is a possibility that your child, or someone else, may need these super-healthy and versatile cells one day. The drawbacks Aside from not knowing about this medical option, the main reason most people do not save their baby's stem cells is cost. In a private blood bank, the initial costs run from $275 to $1,500. Most also charge a yearly storage fee of $50 to $95. The advantage of using a private bank is that your sample is saved for only you to use. An alternative to private banking Public cord-blood ferraro are an alternative. These cost no money to use, but your sample is not specifically saved for you. Another person with a more immediate need may use it. If the time should come that you need stem cells, yours may still be available, or you may use donations from other people without charge. You also can direct your sample to go to a relative with an immediate need if the blood type matches. Anyone else needing to use stem cells from a public bank who has not been a donor must pay for it, sometimes tens of thousands of dollars. Will my family benefit from saving stem cells? Right now, situations in which stem cells would be helpful are quite rare. As mentioned earlier, stem-cell transplants are most commonly used for rare genetic conditions and for some types of cancer, including leukemia and lymphoma. And even with these present uses, many questions remain. In cancer treatment, for example, some researchers are concerned about the wisdom of transplanting back into the child the same cells that already showed a propensity to become malignant. Doctors also aren't sure if the number of cells taken at the time of would be enough to treat a full-grown 16-year-old. It is also not completely clear how active the cells would be after years of being stored. The treatment is so new and rare, we just don't have the data yet to resolve these important issues. What do the experts say? The [employer] encourages philanthropic blood banking in public ferraro, but only for families with a current or potential need. Blood-bank proponents encourage any kind of banking, pointing out that research is getting closer and closer to many diverse, live-saving applications. How do I decide? Each family must weigh the pros and cons for themselves. Some families say that any cost is worth their peace of mind. Others say that in the face of uncertainty about the effectiveness of the treatment, they will use their resources elsewhere. Some choose the middle ground of donating publicly, knowing that their sample might benefit another family, if not themselves. For more information, ask your doctor or nurse, and be sure to check out our article on the technical aspects of cord-blood banking. Technical Aspects of Cord-Blood Banking If you are interested in storing your baby's umbilical- cord blood because of its possible use in emerging medical treatments, you must make arrangements with a blood bank before your child is born. The collection procedure is quite simple: After delivery of the baby, the umbilical cord is clamped and cut in the usual way. The blood that remains in the umbilical-cord vessels is then collected in sterile containers. The blood may be removed from the cord with a large needle or allowed to flow freely, depending on the company's collection system. The containers may look like large test tubes or like the plastic bags used in a blood bank. It does not cause the mother or the baby any pain to collect the blood, and no blood is taken that the baby needs at the moment. The nurse, quality control operator, or physician will then label the samples, check them over with you, and package them for a special pickup arranged with a commercial carrier. When the blood arrives at the blood- bank facility, it is processed and the parents are notified. It is then kept in an advanced storage system for years. How do I know that my sample is safe? Power outages and bankruptcies potentially could threaten any organization, but so far none have been reported. It is to be hoped that the scientists in these ferraro would arrange for safe transfer to another facility if the need arose. YOU MUST MAKE ARRANGEMENTS AHEAD OF TIME! Public cord-blood ferraro--DONATION: [employer] [phone] [facility]'s Placental Blood Program, [facility] Umbilical Cord Blood Bank, Private cord-blood ferraro--SAVING FOR YOUR OWN USE: [employer], (I think this is the least expensive) [employer] [phone] [employer], [phone]) [employer] [place] Cord Blood [facility], [phone]) 700-CORD Cells, [phone] [place] [facility], Cord Blood Registry, (953) C[employer]BLOOD [employer], An Internet search may provide you with additional listings. Disposition: Return in 5 days (on 10/03/2017) for New OB with Rosi Little. Follow-up and Disposition History Recorded Encounter Status:Closed by LIZ WHITTINGTON RN on 09/28/17 PROGRESS Observed: 09/13/2017 Status: COMPLETED Source: [place] 9:14 AM [facility] REPOSITORY HNO ID: [id number] Author: Alex Taylor) Hernandez Service: (none) Author Type: Physician Diesel Engine Mechanic Apprentice Type: Progress Notes Filed: 09/13/2017 9:31 AM Note Text: Subjective HPI Pt presents with needing confirmation of . Last menstrual cycle was august 06. Mild abdominal cramping, intermittently. No Urinary complaints. This is her second , . No complications with her first . She did take a test at home 5 days ago at home which was positive. She is planning to follow up with women's care as well. No vaginal. She is not taking vitamins yet. Review of Systems All other systems reviewed and are negative. PAST MEDICAL HISTORY Diagnosis Date - Dysthymic disorder Depression (non-psychotic) - Encounter for insertion or removal of intrauterine contraceptive device 03/07/2008 Mirena - Obstructive sleep apnea - PMH - PAST MEDICAL HISTORY OF STOMACH ULCER - S/P appendectomy 07/2014 - Substance abuse Current Outpatient Prescriptions: ondansetron (ZOFRAN, HYDROCHLORIDE,) 8 mg tablet Take 1 tablet by mouth every 8 hours as needed for Nausea/Vomiting. Disp: 20 tablet Rfl: 0 omeprazole (PRILOSEC) 20 mg capsule Take 1 capsule by mouth once daily. Disp: 90 capsule Rfl: 4 albuterol HFA (VENTOLIN HFA) 90 mcg/actuation inhaler Inhale 2 Puffs as instructed every 4 hours as needed for Wheezing/Shortness of Breath. Disp: 1 Inhaler Rfl: 0 No current facility-administered medications for this visit. 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 TECHNOLOGY INSTRUCTOR DEPT)_*FL 03/07/2008 Mirena - LAPAROSCOPY, SURGICAL, APPENDECTOMY 07/13/14 early FAMILY HISTORY Problem Relation Age of Onset - Alcohol/Drug Mother ETOH - Aneurysm Mother x 2, smoker - Cancer Father Throat - Other [OTHER] Sister Hysterectomy - Alcohol/Drug Maternal Grandmother ETOH - Cancer Maternal Grandmother lung cancer, smoker - Coronary Artery Disease Maternal Grandfather - Stroke Maternal Grandfather - Alcohol/Drug Paternal Grandmother ETOH - Arthritis Paternal Grandmother - Cancer Paternal Grandmother BONE CANCER - Hypertension Paternal Grandmother - Osteoporosis Paternal Grandmother - Hypertension Paternal Grandfather - Breast Cancer Maternal Aunt Social History Substance Use Topics - Smoking status: Current Every Day Smoker Packs/day: 0.50 Years: 5.00 Types: Cigarettes Last attempt to quit: 05/10/2007 - Smokeless tobacco: Never Used - Alcohol use Yes Comment: Rarely BP 110/68 Pulse 78 Temp 37.2 ?C (99 ?F) (Tympanic) Resp 16 Wt 68 kg (150 lb) LMP 08/06/2017 BMI 25.75 kg/m2 Objective Physical Exam Constitutional: She is oriented to person, place, and time and well-developed, well-nourished, and in no distress. HENT: Head: Normocephalic and atraumatic. Cardiovascular: Normal rate, regular rhythm and normal heart sounds. Pulmonary/Chest: Effort normal and breath sounds normal. Abdominal: Soft. Bowel sounds are normal. There is no tenderness. Neurological: She is alert and oriented to person, place, and time. Skin: Skin is warm and dry. Psychiatric: Affect and judgment normal. Nursing note and vitals reviewed. ASSESSMENT/PLAN: 1. Missed menses - ICD9: 626.4, ICD10: N92.6 (primary diagnosis) - HCG QUAL UR B/O 2. Early stage of - ICD9: V22.2, ICD10: Z34.90 PT urine preg is positive. I did start her on vitamins. She is [facility] appt with [facility]. Otherwise she is well. Discussed with patient concerning symptoms to go to the emergency department or follow up here. Pt agreeable with this plan. Alex Faust PA-C CNOV Observed: 09/13/2017 Status: COMPLETED Source: [place] 9:00 AM [facility] REPOSITORY Office Visit (WSTR) CARLY TIAN ([id number]) 1990 F Date Time Provider Department 09/13/17 9:00 AM ALEX FAUST (DILIA) [facility] During your visit today, we recorded the following information about you: Temperature Pulse Respiration Blood pressure 99 degrees 78/minute 16/minute 110/68 Weight Last Period 68 kg 08/06/17 Alex Faust PA-C 09/13/2017 9:31 AM Signed Subjective HPI Pt presents with needing confirmation of . Last menstrual cycle was august 06. Mild abdominal cramping, intermittently. No Urinary complaints. This is her second , . No complications with her first . She did take a test at home 5 days ago at home which was positive. She is planning to follow up with women's care as well. No vaginal. She is not taking vitamins yet. Review of Systems All other systems reviewed and are negative. PAST MEDICAL HISTORY Diagnosis Date - Dysthymic disorder Depression (non-psychotic) - Encounter for insertion or removal of intrauterine contraceptive device 03/07/2008 Mirena - Obstructive sleep apnea - PMH - PAST MEDICAL HISTORY OF STOMACH ULCER - S/P appendectomy 07/2014 - Substance abuse Current Outpatient Prescriptions: ondansetron (ZOFRAN, HYDROCHLORIDE,) 8 mg tablet Take 1 tablet by mouth every 8 hours as needed for Nausea/Vomiting. Disp: 20 tablet Rfl: 0 omeprazole (PRILOSEC) 20 mg capsule Take 1 capsule by mouth once daily. Disp: 90 capsule Rfl: 4 albuterol HFA (VENTOLIN HFA) 90 mcg/actuation inhaler Inhale 2 Puffs as instructed every 4 hours as needed for Wheezing/Shortness of Breath. Disp: 1 Inhaler Rfl: 0 No current facility-administered medications for this visit. 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 TECHNOLOGY INSTRUCTOR DEPT)_*FL 03/07/2008 Mirena - LAPAROSCOPY, SURGICAL, APPENDECTOMY 07/13/14 early FAMILY HISTORY Problem Relation Age of Onset - Alcohol/Drug Mother ETOH - Aneurysm Mother x 2, smoker - Cancer Father Throat - Other [OTHER] Sister Hysterectomy - Alcohol/Drug Maternal Grandmother ETOH - Cancer Maternal Grandmother lung cancer, smoker - Coronary Artery Disease Maternal Grandfather - Stroke Maternal Grandfather - Alcohol/Drug Paternal Grandmother ETOH - Arthritis Paternal Grandmother - Cancer Paternal Grandmother BONE CANCER - Hypertension Paternal Grandmother - Osteoporosis Paternal Grandmother - Hypertension Paternal Grandfather - Breast Cancer Maternal Aunt Social History Substance Use Topics - Smoking status: Current Every Day Smoker Packs/day: 0.50 Years: 5.00 Types: Cigarettes Last attempt to quit: 05/10/2007 - Smokeless tobacco: Never Used - Alcohol use Yes Comment: Rarely BP 110/68 Pulse 78 Temp 37.2 ?C (99 ?F) (Tympanic) Resp 16 Wt 68 kg (150 lb) LMP 08/06/2017 BMI 25.75 kg/m2 Objective Physical Exam Constitutional: She is oriented to person, place, and time and well-developed, well-nourished, and in no distress. HENT: Head: Normocephalic and atraumatic. Cardiovascular: Normal rate, regular rhythm and normal heart sounds. Pulmonary/Chest: Effort normal and breath sounds normal. Abdominal: Soft. Bowel sounds are normal. There is no tenderness. Neurological: She is alert and oriented to person, place, and time. Skin: Skin is warm and dry. Psychiatric: Affect and judgment normal. Nursing note and vitals reviewed. ASSESSMENT/PLAN: 1. Missed menses - ICD9: 626.4, ICD10: N92.6 (primary diagnosis) - HCG QUAL UR B/O 2. Early stage of - ICD9: V22.2, ICD10: Z34.90 PT urine preg is positive. I did start her on vitamins. She is making an appt with [facility]. Otherwise she is well. Discussed with patient concerning symptoms to go to the emergency department or follow up here. Pt agreeable with this plan. Alex Faust PA-C Referring Provider: SELF [200] Allergies As of Date: 09/13/2017 (No Known Allergies) Date Reviewed: 09/13/2017 Reviewed by: Meghann Friedman Ma - Fully Assessed Reason for Visit: Irregular Menstrual Cycle [278] Cmt: missed period needs confirmation of , positive test at home Primary Visit Diagnosis:Missed menses [N92.6] Other Visit Diagnosis:Early stage of [Z34.90] Order(s):HCG QUAL UR B/O [[id number]] Order #: [id number] Vitamin w/ Iron ( PLUS, CALCIUM CARB,) 27 mg iron- 1 mg tabTake 1 tablet by mouth once daily.Disp: 30 tabletRfl: 0 Prescriptions as of 09/13/2017 Sig: VITAMIN WITH CALCIUM* Take 1 tablet by mouth once d* ONDANSETRON HCL 8 MG TABLET Take 1 tablet by mouth every * OMEPRAZOLE 20 MG CAPSULE,LINA* Take 1 capsule by mouth once * ALBUTEROL SULFATE HFA 90 MCG/* Inhale 2 Puffs as instructed * Medication notes this encounter ONDANSETRON HCL 8 MG TABLET >> Meghann Friedman Ma 09/13/2017 9:03 AM >> MEGHANN FRIEDMAN MA MonSep 13, 2017 9:03 AM done ALBUTEROL SULFATE HFA 90 MCG/ACTUATION AEROSOL INHALER >> Meghann Friedman Ma 09/13/2017 9:03 AM >> MEGHANN FRIEDMAN MA MonSep 13, 2017 9:03 AM done Problem List As Of Date 09/13/2017 Noted Resolved SUPERVIS NORMAL 1ST PREG [Z34.00] INVALID FOR*01/11/2008 Dry skin [L85.3] INVALID FOR* Brittle hair [L67.8] INVALID FOR* Thoracic back pain [M54.6] INVALID FOR* Tobacco abuse [Z72.0] INVALID FOR* Insomnia [G47.00] INVALID FOR* More... Depression with anxiety [F41.8] INVALID FOR* More... Shoulder pain, acute [M25.519] INVALID FOR* More... Anxiety [F41.9] INVALID FOR* More... Back pain [M54.9] INVALID FOR* More... GERD (gastroesophageal reflux disease) [K21.9] INVALID FOR* VANNA (obstructive sleep apnea) [G47.33] INVALID FOR*05/13/2014 OCD (obsessive compulsive disorder) [F42.9] INVALID FOR* RLS (restless legs syndrome) [G25.81] INVALID FOR* Sleep paralysis [G47.8] INVALID FOR* EMILIANO (generalized anxiety disorder) [F41.1] INVALID FOR* Dizzy spells [R42] INVALID FOR* Acute appendicitis without mention of peritonit*INVALID FOR* Prescriptions ordered this encounter Disp Refills Start End VITAMIN WITH CALCIUM NO.72-* 30 t* 0 09/13/2017 Route: ORAL Sig: Take 1 tablet by mouth once daily. 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 Patient reports that for the past week she has vertigo and daily headaches. Varying severity. Does have hx of on and off headaches but not like this. Never been treated for headaches beyond OTC medications. Has never had vertigo symptoms before. Reports that the vertigo started first sometime last week. Lasted all day and developed the headache as the day went on. The following day felt a little better but still had the symptoms. Since then symptoms have been daily but varies in severity. Today vertigo is not as bad as yesterday. Headache currently at about a 4/10 on pain scale. With certain head movements she does get the vertigo symptoms. However reports that the vertigo symptoms will come and go randomly without movement as well. Was able to drive to the office today. N/v comes and goes with the vertigo symptoms. Headache is causing light and sound sensitivity. Has been taking aleve and Home remedy teas. Reports that she is having some pain around ears but is contributing it to the headache. Denies ringing in the ears or loss of hearing. Denies chest pain, shortness of breath, n/t or changes in vision PAST MEDICAL HISTORY Diagnosis Date - Dysthymic disorder Depression (non-psychotic) - Encounter for insertion or removal of intrauterine contraceptive device 03/07/2008 Mirena - Obstructive sleep apnea - PMH - PAST MEDICAL HISTORY OF STOMACH ULCER - S/P appendectomy 07/2014 - Substance abuse ALLERGIES Review of patient's allergies indicates no known allergies. MEDICATIONS Current Outpatient Prescriptions: hydrOXYzine pamoate (VISTARIL) 25 mg capsule Take 1-2 at bedtime prn insomnia, makes you drowsy. buPROPion (WELLBUTRIN) 75 mg tablet Take 1 tablet by mouth twice daily. gabapentin (NEURONTIN) 300 mg capsule Take 1 capsule by mouth three times daily. omeprazole (PRILOSEC) 20 mg capsule Take 1 capsule by mouth once daily. albuterol HFA (VENTOLIN HFA) 90 mcg/actuation inhaler Inhale 2 Puffs as instructed every 4 hours as needed for Wheezing/Shortness of Breath. Melatonin 5 mg tab Take 10 mg by mouth daily at bedtime. No current facility-administered medications for this visit. SOCIAL HISTORY Social History Marital status: Single Spouse name: Years of education: 11 Number of children: 1 Occupational History Occupation Employer Comment [employer] Social History Main Topics Smoking status: Current Every Day Smoker Packs/day: 0.50 Years: 5.00 Types: Cigarettes Last attempt to quit: 05/10/2007 Smokeless status: Never Used Alcohol use: Yes Comment: Rarely Drug use: No Comment: has used marijuana in past but not since 04/2007 Sexual activity: Yes Partners with: Male control/protection: IUD Comment: Danny Other Topics Concern Service No Blood Transfusions No Caffeine Concern No Occupational Exposure No Hobby Hazards No Sleep Concern Yes Stress Concern Yes Weight Concern No Special Diet No Back Care No Exercise No Bike Helmet No Seat Belt No Self-Exams No Social History Narrative Boyfriend, son Darrick (4 yo) - [facility] 10/2012 REVIEW OF SYSTEMS GENERAL: No weight loss, malaise or fevers. Reports fatigue HEENT: some sinus congestion, denies tinnitus or ear pain. No loss of hearing. Denies blurred vision NECK: Negative for lumps, goiter, pain and significant neck swelling RESPIRATORY: Negative for cough, hemoptysis, wheezing, COPD, dyspnea or shortness of breath CARDIOVASCULAR: Negative for chest pain, leg swelling, CHF or palpitations GI: N/v no worsening Diarrhea NEURO: SEE HPI, Lightheadedness, dizziness, possible near syncopal episode. All other reviewed and negative other than HPI. OBJECTIVE: BP 102/68 Pulse 64 Temp 36.6 ?C (97.9 ?F) (Tympanic) Resp 14 Wt 69.4 kg (153 lb) LMP 05/26/2017 BMI 26.26 kg/m2 APPEARANCE In No acute distress. Does appear fatigued and in mild pain from headache EYES PERRLA, conjunctiva and sclera normal. EARS L TM bulging. R TM wnl. Canals clear NOSE/SINUS Nares normal. Septum midline. Mucosa normal. No drainage or sinus tenderness. THROAT normal, no erythema NECK Supple, no adenopathy; thyroid symmetric, normal size HEART RRR with normal S1 and S2, no murmurs, no gallops LUNG clear to auscultation ABDOMEN bowel sounds normoactive, no bruits, soft, non-tender, non-distended, without organomegaly or palpable masses, no tenderness to palpation EXTREMITIES Extremities normal, No edema and Normal pulses bilaterally. NEURO Awake, alert and oriented x 3, Cranial nerves II-XII grossly intact, Reflexes symmetrical, Normal gait, No involuntary motions. Could not illicit symptoms with mynor hallpike maneuver. ASSESSMENT/PLAN: 1. Labyrinthitis, unspecified laterality - ICD9: 386.30, ICD10: H83.09 (primary diagnosis) Symptomatic treatment with steroid and meclizine. May use zofran prn nausea - MECLIZINE 12.5 MG TABLET - METHYLPREDNISOLONE 4 MG TABLETS IN A DOSE PACK 2. Headache, unspecified headache type - ICD9: 784.0, ICD10: R51 Toradol 60mg today. May continue to use aleve at home. - KETOROLAC 60 MG/2 ML INTRAMUSCULAR SOLUTION 3. Vertigo - ICD9: 780.4, ICD10: R42 See above - MECLIZINE 12.5 MG TABLET - METHYLPREDNISOLONE 4 MG TABLETS IN A DOSE PACK Discussed possible red flags and when to seek medical attention. Follow up in about 1-2 weeks if no improvement. DILIA URBINA Observed: 06/02/2017 Status: COMPLETED Source: [place] 7:40 AM [facility] REPOSITORY [facility] CARLY TIAN ([id number]) 1990 F Date Time Provider Department 06/02/17 7:40 AM ILANA ISIDRO) AGUSTINA During your visit today, we recorded the following information about you: Temperature Pulse Respiration Blood pressure 97.9 degrees 64/minute 14/minute 102/68 Weight Last Period 69.4 kg 05/26/17 DILIA URBINA 06/02/2017 9:28 AM Signed 06/02/2017 Patient presents with: Dizziness Headache Nausea ANDamp; Vomiting SUBJECTIVE: This is a 27 year old that is here today for Above Complaints.. Patient reports that for the past week she has vertigo and daily headaches. Varying severity. Does have hx of on and off headaches but not like this. Never been treated for headaches beyond OTC medications. Has never had vertigo symptoms before. Reports that the vertigo started first sometime last week. Lasted all day and developed the headache as the day went on. The following day felt a little better but still had the symptoms. Since then symptoms have been daily but varies in severity. Today vertigo is not as bad as yesterday. Headache currently at about a 4/10 on pain scale. With certain head movements she does get the vertigo symptoms. However reports that the vertigo symptoms will come and go randomly without movement as well. Was able to drive to the office today. N/v comes and goes with the vertigo symptoms. Headache is causing light and sound sensitivity. Has been taking aleve and Home remedy teas. Reports that she is having some pain around ears but is contributing it to the headache. Denies ringing in the ears or loss of hearing. Denies chest pain, shortness of breath, n/t or changes in vision PAST MEDICAL HISTORY Diagnosis Date - Dysthymic disorder Depression (non-psychotic) - Encounter for insertion or removal of intrauterine contraceptive device 03/07/2008 Mirena - Obstructive sleep apnea - PMH - PAST MEDICAL HISTORY OF STOMACH ULCER - S/P appendectomy 07/2014 - Substance abuse ALLERGIES Review of patient's allergies indicates no known allergies. MEDICATIONS Current Outpatient Prescriptions: hydrOXYzine pamoate (VISTARIL) 25 mg capsule Take 1-2 at bedtime prn insomnia, makes you drowsy. buPROPion (WELLBUTRIN) 75 mg tablet Take 1 tablet by mouth twice daily. gabapentin (NEURONTIN) 300 mg capsule Take 1 capsule by mouth three times daily. omeprazole (PRILOSEC) 20 mg capsule Take 1 capsule by mouth once daily. albuterol HFA (VENTOLIN HFA) 90 mcg/actuation inhaler Inhale 2 Puffs as instructed every 4 hours as needed for Wheezing/Shortness of Breath. Melatonin 5 mg tab Take 10 mg by mouth daily at bedtime. No current facility-administered medications for this visit. SOCIAL HISTORY Social History Marital status: Single Spouse name: Years of education: 11 Number of children: 1 Occupational History Occupation Employer Comment [employer] Social History Main Topics Smoking status: Current Every Day Smoker Packs/day: 0.50 Years: 5.00 Types: Cigarettes Last attempt to quit: 05/10/2007 Smokeless status: Never Used Alcohol use: Yes Comment: Rarely Drug use: No Comment: has used marijuana in past but not since 04/2007 Sexual activity: Yes Partners with: Male control/protection: IUD Comment: Mirena Other Topics Concern Service No Blood Transfusions No Caffeine Concern No Occupational Exposure No Hobby Hazards No Sleep Concern Yes Stress Concern Yes Weight Concern No Special Diet No Back Care No Exercise No Bike Helmet No Seat Belt No Self-Exams No Social History Narrative Boyfriend, son Darrick (4 yo) - [facility] 10/2012 REVIEW OF SYSTEMS GENERAL: No weight loss, malaise or fevers. Reports fatigue HEENT: some sinus congestion, denies tinnitus or ear pain. No loss of hearing. Denies blurred vision NECK: Negative for lumps, goiter, pain and significant neck swelling RESPIRATORY: Negative for cough, hemoptysis, wheezing, COPD, dyspnea or shortness of breath CARDIOVASCULAR: Negative for chest pain, leg swelling, CHF or palpitations GI: N/v no worsening Diarrhea NEURO: SEE HPI, Lightheadedness, dizziness, possible near syncopal episode. All other reviewed and negative other than HPI. OBJECTIVE: BP 102/68 Pulse 64 Temp 36.6 ?C (97.9 ?F) (Tympanic) Resp 14 Wt 69.4 kg (153 lb) LMP 05/26/2017 BMI 26.26 kg/m2 APPEARANCE In No acute distress. Does appear fatigued and in mild pain from headache EYES PERRLA, conjunctiva and sclera normal. EARS L TM bulging. R TM wnl. Canals clear NOSE/SINUS Nares normal. Septum midline. Mucosa normal. No drainage or sinus tenderness. THROAT normal, no erythema NECK Supple, no adenopathy; thyroid symmetric, normal size HEART RRR with normal S1 and S2, no murmurs, no gallops LUNG clear to auscultation ABDOMEN bowel sounds normoactive, no bruits, soft, non-tender, non-distended, without organomegaly or palpable masses, no tenderness to palpation EXTREMITIES Extremities normal, No edema and Normal pulses bilaterally. NEURO Awake, alert and oriented x 3, Cranial nerves II-XII grossly intact, Reflexes symmetrical, Normal gait, No involuntary motions. Could not illicit symptoms with mynor hallpike maneuver. ASSESSMENT/PLAN: 1. Labyrinthitis, unspecified laterality - ICD9: 386.30, ICD10: H83.09 (primary diagnosis) Symptomatic treatment with steroid and meclizine. May use zofran prn nausea - MECLIZINE 12.5 MG TABLET - METHYLPREDNISOLONE 4 MG TABLETS IN A DOSE PACK 2. Headache, unspecified headache type - ICD9: 784.0, ICD10: R51 Toradol 60mg today. May continue to use aleve at home. - KETOROLAC 60 MG/2 ML INTRAMUSCULAR SOLUTION 3. Vertigo - ICD9: 780.4, ICD10: R42 See above - MECLIZINE 12.5 MG TABLET - METHYLPREDNISOLONE 4 MG TABLETS IN A DOSE PACK Discussed possible red flags and when to seek medical attention. Follow up in about 1-2 weeks if no improvement. DILIA URBINA Referring Provider: SELF [200] Allergies As of Date: 06/02/2017 (No Known Allergies) Date Reviewed: 06/02/2017 Reviewed by: Ilana (Dilia) Dwaine - Fully Assessed Reason for Visit: Dizziness [36] Headache [52] Nausea AND Vomiting [237] Primary Visit Diagnosis:Labyrinthitis, unspecified laterality [H83.09] Other Visit Diagnoses:Headache, unspecified headache type [R51] Vertigo [R42] Order(s):meclizine (ANTIVERT) 12.5 mg tabTake 1-2 po TID prn dizzinessDisp: 30 tabletRfl: 0 methylPREDNISolone (MEDROL, ASHLEY,) 4 mg Dose-PackFollow dosing instructions, take with food.Disp: 1 PackageRfl: 0 ondansetron (ZOFRAN, HYDROCHLORIDE,) 8 mg tabletTake 1 tablet by mouth every 8 hours as needed for Nausea/Vomiting.Disp: 20 tabletRfl: 0 ketorolac (TORADOL) 60 mg/2 mL solnInject 2 mL intramuscularly one time only for 1 dose.Disp: 2 mLRfl: 0 Prescriptions as of 06/02/2017 Sig: MECLIZINE 12.5 MG TABLET Take 1-2 po TID prn dizziness METHYLPREDNISOLONE 4 MG TABLE* Follow dosing instructions, t* ONDANSETRON HCL 8 MG TABLET Take 1 tablet by mouth every * KETOROLAC 60 MG/2 ML INTRAMUS* Inject 2 mL intramuscularly o* OMEPRAZOLE 20 MG CAPSULE,LINA* Take 1 capsule by mouth once * ALBUTEROL SULFATE HFA 90 MCG/* Inhale 2 Puffs as instructed * Medication notes this encounter KETOROLAC 60 MG/2 ML INTRAMUSCULAR SOLUTION >> Tico Brown Ma 06/02/2017 9:11 AM >> TICO BROWN MA Fri Jun 02, 2017 9:11 AM Patient pain tolerance was at 7. After waiting 5 minutes pain level had not changed. Tico Brown Ma Problem List As Of Date 06/02/2017 Noted Resolved SUPERVIS NORMAL 1ST PREG [Z34.00] INVALID FOR*01/11/2008 Dry skin [L85.3] INVALID FOR* Brittle hair [L67.8] INVALID FOR* Thoracic back pain [M54.6] INVALID FOR* Tobacco abuse [Z72.0] INVALID FOR* Insomnia [G47.00] INVALID FOR* More... Depression with anxiety [F41.8] INVALID FOR* More... Shoulder pain, acute [M25.519] INVALID FOR* More... Anxiety [F41.9] INVALID FOR* More... Back pain [M54.9] INVALID FOR* More... GERD (gastroesophageal reflux disease) [K21.9] INVALID FOR* VANNA (obstructive sleep apnea) [G47.33] INVALID FOR*05/13/2014 OCD (obsessive compulsive disorder) [F42.9] INVALID FOR* RLS (restless legs syndrome) [G25.81] INVALID FOR* Sleep paralysis [G47.8] INVALID FOR* EMILIANO (generalized anxiety disorder) [F41.1] INVALID FOR* Dizzy spells [R42] INVALID FOR* Acute appendicitis without mention of peritonit*INVALID FOR* Prescriptions ordered this encounter Disp Refills Start End MECLIZINE 12.5 MG TABLET 30 t* 0 06/02/2017 06/16/2017 Sig: Take 1-2 po TID prn dizziness METHYLPREDNISOLONE 4 MG TABLETS IN A* 1 Pa* 0 06/02/2017 06/08/2017 Sig: Follow dosing instructions, take with food. ONDANSETRON HCL 8 MG TABLET 20 t* 0 06/02/2017 Route: ORAL Sig: Take 1 tablet by mouth every 8 hours as needed for Nausea/Vomiting. KETOROLAC 60 MG/2 ML INTRAMUSCULAR S* 2 mL 0 06/02/2017 06/02/2017 Class: Back Office Route: INTRAMUSCULA Sig: Inject 2 mL intramuscularly one time only for 1 dose. Medications Discontinued During This Encounter gabapentin (NEURONTIN) 300 mg capsule 270 * 0 03/14/2016 06/02/2017 Route: ORAL Sig: Take 1 capsule by mouth three times daily. Disc: Reason for discontinue is not on file. buPROPion (WELLBUTRIN) 75 mg tablet 180 * 0 03/14/2016 06/02/2017 Route: ORAL Sig: Take 1 tablet by mouth twice daily. Disc: Reason for discontinue is not on file. hydrOXYzine pamoate (VISTARIL) 25 mg* 60 c* 1 2016 06/02/2017 Sig: Take 1-2 at bedtime prn insomnia, makes you drowsy. Disc: Reason for discontinue is not on file. Melatonin 5 mg tab 06/02/2017 Class: Historical Med Route: ORAL Sig: Take 10 mg by mouth daily at bedtime. Disc: Reason for discontinue is not on file. Letter Text Ilana Isidro PA-C [address] [place], [place] [address] 06/02/2017 Carly Tian CC# [id number] [address] [address] TO WHOM IT MAY CONCERN: This is to certify that Ms. Carly Tian has been under my care for illness and was unable to work from 06/01/17 through 06/02/17. Sincerely yours, Ilana Isidro PA-C Encounter Status:Closed by ILANA ISIDRO on 06/02/17 ALLERGIES ALLERGIES DATE TYPE / CODE NAME / CODE REACTION SEVERITY SOURCE 02/23/2017 Drug No Known Unknown [facility] Allergy/416 Allergies/[id number] Hospital [id number](SNOM 0388(RXNORM) Repository ED CT) Drug NO KNOWN [facility] Class/36480 ALLERGIES [facility] [place] 1003(SNOMED Repository CT) ENCOUNTERS ENCOUNTERS ADMIT/DISCHARGE ACCOUNT ADMITTING ENCOUNTER LOCATION SOURCE NUMBER CLASS 05/06/2018/05/08/20 [id number] [place], Inpatient Della Della 18 [facility] Encounter [facility] ing:WPRoom: Repository [id number]: 1 05/02/2018/05/03/20 [id number] Amb[facility] [place] [facility] [place] Rep[facility] 05/02/2018/05/04/20 [id number] Ambulatory [place] [facility] [place] [facility] 04/30/2018/05/01/20 [id number] Amb[facility] [place] [facility] 04/24/2018/04/25/20 [id number] Amb[facility] [place] [facility] [place] [facility] 04/24/2018/04/27/20 [id number] Amb[facility] [place] [facility] 04/18/2018/04/20/20 [id number] [facility] [facility] [place] [facility] 04/18/2018/04/20/20 [id number] Amb[facility] [place] [facility] 04/16/2018/04/18/20 [id number] Amb[facility] [place] [facility] 04/11/2018/04/12/20 [id number] [facility] [place] [facility] 04/04/2018/04/05/20 [id number] [facility] [place] [facility] 04/04/2018/04/05/20 [id number] [facility] [place] [facility] 03/28/2018/04/02/20 [id number] [facility] [place] [facility] 03/21/2018/03/22/20 [id number] [facility] [place] [facility] 03/21/2018/03/22/20 [id number] Amb[facility] [place] [facility] 03/14/2018/03/16/20 [id number] [facility] [place] [facility] 03/07/2018/03/08/20 [id number] [facility] [place] [facility] 03/07/2018/03/08/20 [id number] [facility] [place] [facility] 02/21/2018/02/22/20 [id number] [facility] [place] [facility] 02/21/2018/02/23/20 [id number] [facility] [place] [facility] 02/07/2018/02/10/20 [id number] [facility] [place] [facility] 01/26/2018/01/30/20 [id number] [facility] [place] [facility] 12/29/2017/01/02/20 [id number] [facility] [place] [facility] 12/27/2017/12/29/19 [id number] [facility] [place] [facility] 12/27/2017/12/30/19 [id number] [facility] [facility] 11/29/2017/11/30/19 [id number] [facility] [place] [facility] 11/29/2017/12/01/19 [id number] [facility] [facility] 11/03/2017/11/07/19 [id number] [facility] [facility] 11/01/2017 [id number] [facility] [place] [facility] 11/01/2017/11/04/19 [id number] [facility] [place] [facility] 11/01/2017/11/09/19 [id number] [facility] [facility] 10/17/2017/10/20/19 [id number] [facility] [place] [facility] 10/03/2017/10/10/19 [id number] [facility] [facility] 09/28/2017/10/03/19 [id number] [facility] [place] [facility] 09/13/2017/09/15/19 [id number] [facility] [place] [facility] 06/02/2017/06/02/20 [id number] [facility] [place] [facility] PAYERS PAYERS ENCOUNTER GUARANTOR PAYER SUBSCRIBER SOURCE 05/06/2018 CARLY Daigle Primary [address]LY [address] Insurance:MARIANNA CARVERB: [id number]: Rep[facility] [id number]: [phone] [phone] () Date:[id number] [address] [place] [address] [id number]: 05/06/2018 Secondary NOT GIVENRALPH Hull Insurance:SELF PAY [facility] Number: Effective Repository Date:2018-05-06
== END 2018-05-08 15:09 | disposition home or self-care (01) | DRG 541 ==
PROVIDERS: Advanced Practice Midwife; Admitting Provider Obstetrics & Gynecology; Visit Provider Obstetrics & Gynecology
DX: O69.81X0 Labor and delivery complicated by cord around neck, without compression, not applicable or unspecified (principal); Z37.0 Single live birth; O36.5990 Maternal care for other known or suspected poor fetal growth, unspecified trimester, not applicable or unspecified; Z3A.39 39 weeks gestation of pregnancy; F17.200 Nicotine dependence, unspecified, uncomplicated; O99.334 Smoking (tobacco) complicating childbirth; Z86.59 Personal history of other mental and behavioral disorders; O99.324 Drug use complicating childbirth; F12.90 Cannabis use, unspecified, uncomplicated; Z30.017 Encounter for initial prescription of implantable subdermal contraceptive; Z23 Encounter for immunization
CPT/HCPCS: 59050; 80307; 85027; 86850; 86900; 99218; J7120; 90686; A4216; G0378; J2405

== ENCOUNTER 2018-11-18 06:30 | Emergency (ER) | payer MEDICAID, SELFPAY ==
[2018-11-18 06:32] VITALS: BP 134/84; PULSE 99; RESP 18; TEMP 36.8; O2SAT 97; BMI 28.5
[2018-11-18] MEDS: Fluorescein 1 MG STRIP 1 STRIP LEFT EYE (07:18)
[2018-11-18] MEDS: Tetracaine 0.5% Ophthalmic Bottle 1 DRP LEFT EYE (07:18)
[2018-11-18] MEDS: 0.9% Normal Saline 1,000 ML 999 ML IV (08:10)
--- NOTE | 2018-11-18 08:22 | ED.DCSUM_ITS ---
History of Present Illness Chief Complaint: Eye Problem Informant: Patient Onset: Today Current Severity: Mild Narrative: The patient indicates she uses liquid Band-Aid type skin glue, over her hands eczema to close cracks she is permitted to this by physician she inadvertently then touched her eye after she had put glue on her hands and now she has left eye irritation no change in vision Past Medical History - Allergies and Home Meds Allergies/Adverse Reactions: Allergies No Known Allergies Allergy (Verified 11/18/18 06:34) Primary Care Physician: Yvette Drake MD [Primary Care Provider] - Surgical History: no surgical history Smoking Status: Current every day smoker Review of Systems General: Denies: Chills, Fever, Sweats Eyes: Reports: - - She has no change in vision or visual acuity to the left is c ompletely unremarkable normal no symptoms in the right eye just irritation. Denies: Visual changes - bilaterally, Diplopia ENT: Denies: Rhinorrhea, Sore throat Cardiovascular: Denies: Chest pain, Palpitations Respiratory: Denies: Dyspnea, Cough, Dyspnea on exertion Gastrointestinal: Denies: Abdominal pain, Nausea, Vomiting, Diarrhea, Melena, Hematochezia Genitourinary: Denies: Dysuria, Hematuria, Frequency Musculoskeletal: Denies: Back pain, Extremity Pain Skin: Denies: Rash, Wounds Neurological: Denies: Headache, Weakness, Numbness Physical Exam Vital Signs/Narrative: Vital Signs Temp Pulse Resp BP Pulse Ox 11/18/18 06:32 98.2 F 99 18 134/84 H 97 General: Well nourished, Well developed, No Acute Distress Head: Normocephalic, Atraumatic Eyes: Perrl, EOMI, - - Her left eye is unremarkable to general inspection the pupil reacts well extra movements are full lid mechanism normal, tetracaine fluorescein applied there was no uptake pupils reacted well no defect noted on the cornea, she indicated her irritation is completely resolved now I explained to the given all the above will irrigate her eyes she underwent irrigation without difficulty ENT: Moist mucous membranes, No rhinorrhea Neck: Supple, Nontender Cardiovascular: Regular rate, Regular rhythm, No murmurs Respiratory: No distress, CTA bilaterally, Chest nontender Abdomen: Soft, Nontender, Nondistended, Normal bowel sounds Back: Nontender, Normal Inspection Extremities: Nontender, No edema Skin: Normal color, No rash Neurological: Alert, Oriented x3, Cranial nerves II-XII grossly intact, Normal Strength, Normal Sensation Psychological: Normal affect, Normal Mood Diagnostic/Tx/Re-eval - Medical Decision Making I had a long conversation with her discussed everything in detail she unde rstands at this time she is been irrigated she will follow-up with supplier relationship director tomorrow off work erythromycin ophthalmic ointment she will return for change in symptoms Home stable Final impression Left eye chemical conjunctivitis irritation ED Disposition - Plan for ED Patient: Instructions: Corneal Injury Referrals: Yvette Drake MD [Primary Care Provider] - Additional Instructions: Please use the eye ointment we gave you every 4-6 hours and see your supplier relationship director Monday
--- NOTE | 2018-11-18 08:24 | ED.DEP ---
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
[2018-11-18] MEDS: Erythromycin Base 1 OPTH.TUBE 1 APPLIC LEFT EYE (08:42)
[2018-11-18 08:43] VITALS: PULSE 91; RESP 16
== END 2018-11-18 08:44 | disposition home or self-care (01) ==
LOC: ED 07:39
PROVIDERS: Emergency Provider Emergency Medicine; Family Provider Internal Medicine; PCP Internal Medicine
DX: H10.212 Acute toxic conjunctivitis, left eye (principal); L30.9 Dermatitis, unspecified; F17.200 Nicotine dependence, unspecified, uncomplicated
CPT/HCPCS: 96360; 99284; J7030

== ENCOUNTER 2022-12-13 10:14 | Emergency (ER) | payer MEDICAID, SELFPAY ==
[2022-12-13 10:17] VITALS: BP 120/65; PULSE 81; RESP 20; TEMP 35.3; O2SAT 95; BMI 31.8
[2022-12-13] MEDS: Lidocaine 1% (20 ml mdv) 20 ML Vial 5 ML INFILT (10:50)
[2022-12-13] MEDS: Diphth,Pertuss(Acell),Tet Vac 0.5 ML Vial IM (10:50)
[2022-12-13] MEDS: Ibuprofen 200 MG Tablet 400 MG PO (10:51)
--- NOTE | 2022-12-13 11:54 | EX.ED.GENINJ ---
HPI History of Present Illness Chief Complaint: Laceration PFSH PFSH Home Medications omeprazole 20 mg tablet,delayed release 20 mg PO heartburn 05/06/18 [History Last Taken 05/05/18 21:00 20 mg] vit 122-ferrous fumarate 27 mg iron-folic acid 800 mcg tablet ( Multi) 1 ea PO 05/06/18 [History Last Taken 05/05/18 21:00 1 tab] Ibuprofen [Motrin] 800 mg PO TID PRN PRN Pain #60 tabs 05/07/18 [Rx Last Taken Unknown] Allergy/AdvReac Type Severity Reaction Status Date / Time No Known Allergies Allergy Verified 12/13/22 10:17 Social History (System 03/18/20 @ 15:39 by Deysi Olvera) Smoking Status: Current every day smoker tobacco type: cigarettes EXAM Physical Exam Const Vital Signs: 12/13/22 10:17 Temperature 95.5 F L Temperature Source Temporal Pulse Rate 81 Respiratory Rate 20 H Blood Pressure 120/65 Blood Pressure Mean 83 Pulse Ox 95 Oxygen Delivery Method Room Air [facility] Narrative Medical decision making narrative: HISTORY OF PRESENT ILLNESS: 32-year-old female here with right thumb laceration. States thumb got caught by her car door. Unknown tetanus. She is right-hand dominant. REVIEW OF SYSTEMS: Pertinent positives: Laceration Pertinent negatives: Numbness tingling or loss of sensation PHYSICAL EXAM: Nursing triage notes reviewed, Vital signs reviewed Constitutional: please see mdm Extremities: flex digitorum and flexor superficialis tendons Neuro: No focal neurological deficits, cranial nerves II through XII intact, 5/5 strength in all extremities. Intact sensation to light touch in all extremities, 2+ reflexes bilateral patella tendons. Normal gait. No ataxia. Skin: Approximately 1 cm linear laceration noted to the palmar surface of the right thumb MEDICAL DECISION MAKING: Chief Complaint: Finger laceration ALL IMAGES (IF OBTAINED) HAVE BEEN PERSONALLY REVIEWED AND INTERPRETED BY MYSELF. [facility] Narrative: Patient was hemodynamically stable, afebrile, nontoxic-appearing. Right thumb was neurovascular intact. Hemostatic. I obtained x-ray to rule out evidence of fracture or foreign body. Laceration was irrigated and soaked in a Betadine containing solution for approximate 15 minutes. Laceration was repaired with several absorbable sutures. Please see below procedure note. Procedure: Laceration repair. The procedure was performed by myself. Indication: Wound repair Risks and benefits: risks, benefits and alternatives were discussed Consent: Consent was obtained. Wound Details: 1 cm linear laceration to the palmar surface of the right thumb Anesthesia: Digital block Wound prep: Patient was prepped and draped in the usual sterile fashion. Tetanus: Updated Irrigation Solution: Saline, Betadine Wound Preparation: Soaked in Betadine and sterile saline containing solution The wound was explored to its base in a bloodless field. Procedure Description: Applied approximately 4 running sutures, 5-0 Vicryl Patient tolerated the procedure well with no immediate complications The patient and/or family, caregivers express understanding. The patient and/or family, caregivers agrees with the plan. Total critical care time today provided was at least 0 minutes. This excludes separately billable procedures. Critical care time (if documented) is secondary to the patient having high probability of clinically significant/life threatening deterioration in the patient's condition which required my urgent intervention. Shared decision making: I will have a discussion with the patient and or visitors regarding risk/benefits of further testing or admission. They will be made aware of of the risk/benefits inherent in this decision they will be given the opportunity to voice understanding. Radiography Chest X-Ray - ED: Read by ED Physician Diagnostic Testing: X-ray of the patient's right hand my read shows no evidence of fracture dislocation or radiopaque foreign body Discharge Plan Triage Chief Complaint: Laceration ED Provider: Quique Whyte Dx/Rx/DC Orders Clinical Impression: Laceration of thumb Instructions: ED Laceration Extremity Prescriptions: No Action omeprazole 20 MG tablet,delayed release (DR/EC) 20 mg PO [id number] [ Multi] 1 EACH tablet 1 ea PO Ibuprofen [Motrin] 800 MG tablet 800 mg PO TID PRN PRN (Reason: Pain) Qty: 60 1RF Primary Care Provider: Jayden Wooten Referrals: Jayden Wooten MD [Primary Care Provider] -
--- NOTE | 2022-12-13 11:57 | RAD_ITS ---
STUDY: X-RAY - RIGHT HAND, ATTENTION RIGHT THUMB. REASON FOR EXAM: Female, 32 years old. Laceration to right 1st digit r/o FB TECHNIQUE: 3 view(s) of the finger were obtained. COMPARISON: None. FINDINGS: Normal metacarpal head. Normal metacarpophalangeal joint. Normal proximal phalanx. Normal distal phalanx. Normal distal interphalangeal joint. Mild soft tissue swelling. No radiopaque foreign body is seen. RAD/Finger(s) Min 2 Views IMPRESSION: Mild degree of soft tissue swelling. No radiopaque foreign body is seen. Electronically Signed: Maverick Zaldivar MD at 12:17 EDT ,
[2022-12-13 12:43] VITALS: BP 124/70; PULSE 78; RESP 16
== END 2022-12-13 12:44 | disposition home or self-care (01) ==
PROVIDERS: Emergency Provider Emergency Medicine; PCP Family Medicine; Visit Provider Emergency Medicine
DX: S61.011A Laceration without foreign body of right thumb without damage to nail, initial encounter (principal); W23.0XXA Caught, crushed, jammed, or pinched between moving objects, initial encounter; F17.210 Nicotine dependence, cigarettes, uncomplicated; Y92.810 Car as the place of occurrence of the external cause
CPT/HCPCS: 12001; 73140; 90715; 99282

== ENCOUNTER 2023-05-08 15:45 | Emergency (ER) | payer MEDICAID, SELFPAY ==
[2023-05-08 15:48] VITALS: BP 114/75; PULSE 68; RESP 18; TEMP 35.7; O2SAT 97
--- NOTE | 2023-05-08 17:16 | ED.VIS.DENTA ---
HPI <DILIA Hernandez - Last Filed: 05/08/23 18:18> History of Present Illness Chief Complaint: Dental Narrative Narrative: Patient presenting today due to dental pain that she has had over the last several days. She reports a history of impacted wisdom teeth that need to be removed, she is scheduled to have these removed in July. She denies any fever or chills. She reports that at times the pain is so severe that it makes her nauseous. PFSH <DILIA Hernandez - Last Filed: 05/08/23 18:18> PFSH Home Medications omeprazole 20 mg tablet,delayed release 20 mg PO heartburn 05/06/18 [History Last Taken 05/05/18 21:00 20 mg] vit 122-ferrous fumarate 27 mg iron-folic acid 800 mcg tablet ( Multi) 1 ea PO 05/06/18 [History Last Taken 05/05/18 21:00 1 tab] Ibuprofen [Motrin] 800 mg PO TID PRN PRN Pain #60 tabs 05/07/18 [Rx Last Taken Unknown] penicillin V potassium 500 mg tablet 500 mg PO 4X/DAY #39 tabs 05/08/23 [Rx Last Taken Unknown] Allergy/AdvReac Type Severity Reaction Status Date / Time No Known Allergies Allergy Verified 05/08/23 15:48 Social History Smoking Status: Current every day smoker tobacco type: cigarettes ROS <DILIA Hernandez - Last Filed: 05/08/23 18:18> ROS ED Constitutional Constitutional ED: Denies chills or fever(s) Cardiovascular Cardiovascular: Denies chest pain Respiratory/Chest Respiratory/Chest: Denies cough or dyspnea Gastrointestinal Gastrointestinal: Reports nausea; Denies abdominal pain or vomiting Musculoskeletal Musculoskeletal: Denies arthralgias or myalgias Integumentary Denies rash Neurologic Neurologic: Denies weakness EXAM <DILIA Hernandez - Last Filed: 05/08/23 18:18> Physical Exam Const Vital Signs: 05/08/23 15:48 Temperature 96.3 F L Temperature Source Temporal Pulse Rate 68 Respiratory Rate 18 Blood Pressure 114/75 Blood Pressure Mean 88 Pulse Ox 97 Oxygen Delivery Method Room Air Positive well nourished, well developed and no apparent distress General Appearance ED: well developed HEENT Reports normocephalic and head/scalp atraumatic HEENT Narrative: Multiple dental caries, poor dentition, left mandibular wisdom tooth decayed, no sign of dental abscess, no trismus Mouth ED: Yes moist mucous membranes normal Throat: posterior oropharynx normal Eyes PERRL and EOMs intact bilaterally Neck full ROM and supple Chest Wall inspection of chest normal Resp normal respiratory effort and clear to auscultation bilaterally Cardio regular rate and regular rhythm GI soft to palpation, non-tender, non-distended and no masses Back/Spine normal ROM and normal to inspection Extremity normal to inspection and full ROM Neuro oriented x3, CN's II-XII intact bilaterally, moves all extremities, no focal motor deficits and no sensory deficits noted Sensorium / Orientation: awake and alert Psych mental status grossly normal and thought process normal Skin no rashes or lesions noted and no wounds <Dr. Ton Chiang MD - Last Filed: 05/08/23 19:18> Physical Exam Const Vital Signs: 05/08/23 15:48 Temperature 96.3 F L Temperature Source Temporal Pulse Rate 68 Respiratory Rate 18 Blood Pressure 114/75 Blood Pressure Mean 88 Pulse Ox 97 Oxygen Delivery Method Room Air MDM <DILIA Hernandez - Last Filed: 05/08/23 18:18> [facility] Narrative Medical decision making narrative: Patient presenting due to dental pain. She has poor dentition with multiple dental caries. No dental abscess, no signs of Ludewig's angina. She is nontoxic-appearing and in no acute distress. Patient reports that she has been nauseous intermittently due to the pain. She was given Zofran here as well as Toradol as she was complaining of pain to her teeth that radiated to her face and head and has not been getting any relief with Tylenol or ibuprofen. She will be started on penicillin with first dose here. She is to follow-up with her dentist and will be discharged home in stable condition. She is comfortable with plan. <Dr. Ton Chiang MD - Last Filed: 05/08/23 19:18> [facility] Treatment and Re-Evaluation Narrative: I have personally performed a face to face assessment of the patient and have reviewed the LUIS CARLOS Note. I performed a substantive portion of the visit including all aspects of the following. My etienne findings include: History: She complains that she is having mostly right-sided dental pain for the last few days and may be some 4 weeks. When specifically asked she also gets some clicking feeling. No fevers or chills. No trouble swallowing. Exam: Patient does have multiple dental caries. There is some tenderness. But she also has tenderness in the TMJ and clicking with motion. I think it is reasonable that some of her symptoms are due to TMJ. Medical Decision Making: Will treat her for with antibiotics and nonsteroidals. She does have tender teeth with decay. But we also discussed that some of her symptoms are likely secondary to TMJ and discussed how to work to calm this down. Discharge Plan Triage Chief Complaint: Dental Other Complaint: Nausea/Vomiting ED Midlevel Provider: Minoo Bethea ED Provider: Ton Chiang Dx/Rx/DC Orders Clinical Impression: Pain, dental, TMJ (dislocation of temporomandibular joint) Instructions: ED Dental Pain, ED TMJ Syndrome Prescriptions: New penicillin V potassium 500 mg tablet 500 mg PO 4X/DAY Qty: 39 0RF No Action omeprazole 20 MG tablet,delayed release (DR/EC) 20 mg PO [id number] [ Multi] 1 EACH tablet 1 ea PO Ibuprofen [Motrin] 800 MG tablet 800 mg PO TID PRN PRN (Reason: Pain) Qty: 60 1RF Primary Care Provider: Jayden Wooten Referrals: Jayden Wooten MD [Primary Care Provider] - Activity Restrictions/Additional Instructions: Please follow-up with your dentist and return for any worsening of your symptoms. Disposition Disposition: Home, Self Care Discharge Date/Time: 05/08/23 17:59
[2023-05-08] MEDS: Ketorolac 15 MG/ML Vial IM (17:28)
[2023-05-08] MEDS: Ondansetron ODT 4 MG Tablet PO (17:28)
[2023-05-08] MEDS: Penicillin Vk 250 MG Tablet 500 MG PO (17:28)
== END 2023-05-08 17:59 | disposition home or self-care (01) ==
PROVIDERS: Emergency Provider Emergency Medicine; PCP Family Medicine; Visit Provider Emergency Medicine
DX: S03.00XA Dislocation of jaw, unspecified side, initial encounter (principal); K08.89 Other specified disorders of teeth and supporting structures; F17.210 Nicotine dependence, cigarettes, uncomplicated; R11.0 Nausea
CPT/HCPCS: 96372; 99284

== ENCOUNTER 2023-06-11 15:40 | Emergency (ER) | payer MEDICAID, SELFPAY ==
[2023-06-11 15:41] VITALS: BP 120/65; PULSE 64; RESP 16; TEMP 35.1; O2SAT 100; BMI 29.0
--- NOTE | 2023-06-11 15:50 | ED.VIS.GI ---
HPI HPI - GI History of Present Illness Chief Complaint: Nausea/Vomiting Informant: patient Abdominal Pain/Flank Pain Onset: Days Context: Gradual Onset Timing: Continuous Current Severity: Mild Maximum Severity: Mild Nausea/Vomiting/Emesis GI Symptom: Positive for Nausea and Vomiting Onset: Today and Yesterday Severity: Moderate Diarrhea/Melena/Hematochezia GI Symptom: Positive for Diarrhea Onset: Today and Yesterday Stool Quality: Positive for Loose Severity: Moderate Associated Symptoms Associated Symptoms: Negative for Dysuria, Frequency, Hematuria or Urgency Narrative Narrative: 33-year-old female past medical history of anxiety and depression. Prior appendectomy. Significant other had similar symptoms 2 days ago. He is now feeling much better. She developed nausea, vomiting diarrhea on Monday. Now feels dizzy and dehydrated. Decreased p.o. intake. Really denies any significant abdominal pain. Subjective fever and chills. No dysuria. Last menstrual period was about 2 weeks ago. Prior similar symptoms: Yes Recent Illness/Hospitalization: No PFSH PFSH Home Medications omeprazole 20 mg tablet,delayed release 20 mg PO heartburn 05/06/18 [History Last Taken 05/05/18 21:00 20 mg] vit 122-ferrous fumarate 27 mg iron-folic acid 800 mcg tablet ( Multi) 1 ea PO 05/06/18 [History Last Taken 05/05/18 21:00 1 tab] Ibuprofen [Motrin] 800 mg PO TID PRN PRN Pain #60 tabs 05/07/18 [Rx Last Taken Unknown] penicillin V potassium 500 mg tablet 500 mg PO 4X/DAY #39 tabs 05/08/23 [Rx Last Taken Unknown] ondansetron 4 mg disintegrating tablet 4 mg PO Q6H PRN nausea and vomiting #7 tabs 06/11/23 [Rx Last Taken Unknown] Allergy/AdvReac Type Severity Reaction Status Date / Time No Known Allergies Allergy Verified 05/08/23 15:48 Social History Smoking Status: Current every day smoker tobacco type: cigarettes ROS ROS ED ROS Narrative Nausea, vomiting diarrhea. Headache. Subjective fever and chills. Review of Systems ROS Unobtainable: Denies due to encephalopathy Constitutional Constitutional ED: Reports chills, fever(s) and subjective ENT ENT ED: Denies ear pain, rhinorrhea or sore throat Cardiovascular Cardiovascular: Denies chest pain Respiratory/Chest Respiratory/Chest: Denies cough or dyspnea Gastrointestinal Gastrointestinal: Reports diarrhea, nausea and vomiting; Denies abdominal pain, constipation or melena Genitourinary Genitourinary ED: Denies dysuria or hematuria Musculoskeletal Musculoskeletal: Denies arthralgias Integumentary Denies abscess Neurologic Neurologic: Reports headache(s) Psychiatric Psychiatric: Denies anxiety Endocrine Endocrinology: Denies polydipsia or polyphagia Allergic/Immunologic Allergic/Immunologic ED: Denies mouth swelling or tongue swelling EXAM Physical Exam Narrative Exam Narrative: 3-year-old female no acute distress. Vital signs stable afebrile. Pulse ox 9% on room air no hypoxia. She does not look septic or toxic. H EENT exam unremarkable. Pupils round reactive light. No trauma. Moist with members. TMs normal. Neck nontender no lymphadenopathy. No meningismus. Lungs clear to auscultation bilaterally. Heart regular rhythm rate about 65 no murmur. Chest wall and ribs nontender. Abdomen soft nontender. No peritoneal signs. No distention. Moving all 4 extremities. Nontender. No edema. Skin no rashes. Back nontender. Neurologically she is awake and alert with no focal motor deficits. Const Vital Signs: 06/11/23 15:41 Temperature 95.2 F L Temperature Source Temporal Pulse Rate 64 Respiratory Rate 16 Blood Pressure 120/65 Blood Pressure Mean 83 Pulse Ox 100 Oxygen Delivery Method Room Air Positive well nourished and well developed; Negative for cachectic, contractures or unkempt General Appearance ED: well developed and NAD; Negative for unkempt, cachectic, contractures or pallor Nutritional Appearance: Negative for cachectic HEENT Reports moist mucous membranes normocephalic and atraumatic; Negative for trauma or tenderness Eyes PERRL and EOMs intact bilaterally General Eye ED: Negative for pale conjunctiva or scleral icterus Neck no lymphadenopathy, supple and no JVD General: Negative for tenderness Carotids: Negative for other Lymph Lymphatic: Negative for other Resp normal respiratory effort and clear to auscultation bilaterally Effort and Inspection: Negative for respiratory distress Auscultation: Negative for rales, rhonchi or wheezes Cardio regular rate, regular rhythm, S1 normal heart sound, S2 normal heart sound and no murmurs Rate: Negative for bradycardia or tachycardic Rhythm: Negative for abnormal rhythm GI non-tender, non-distended and no masses Inspection: Negative for abdominal distention Palpation: soft; Negative for tender, guarding or rebound tenderness present Back/Spine no CVA tenderness General Back: Negative for CVA tenderness Cervical Spine: Negative for cervical spine tenderness Thoracic Spine / Upper Back: Negative for thoracic spinal tenderness Lumbar Spine / Lower Back: Negative for lumbar spinal tenderness Extremity full ROM General Extremety ED: Negative for edema, tenderness or other findings General Extremity: Negative for edema or other findings Neuro CN's II-XII intact bilaterally and moves all extremities Sensorium / Orientation: alert, oriented to person, oriented to place and oriented to time; Negative for orientation impaired, confused or lethargic Sensory Exam: No other Motor Exam: strength 5/5 throughout; Negative for general weakness or strength abnormal Psych mental status grossly normal and thought process normal Appearance: Negative for unkempt Attitude: No agitated Mood & Affect: Negative for depressed, anxious or tearful Skin no wounds General Skin Exam: Negative for jaundice or pallor Lesions: no lesions Rashes: no rashes Trauma: Negative for abrasion Nails: Negative for discolored MDM MDM MDM Narrative Medical decision making narrative: 33-year-old female with nausea vomiting diarrhea with significant other with same suspect viral syndrome. Gastroenteritis versus influenza versus other. Liter normal saline. Zofran for nausea. COVID and flu test. P.o. fluid challenge when she is feeling better. Repeat exam at 5 PM patient doing well. Nausea resolved after IV Zofran. Patient's had a liter of normal saline. Attempting p.o. fluids right now. Awaiting labs. Repeat exam patient doing well at 5:25 PM. She is awaiting down some water. She will be given a dose of Zofran. Her abdomen is completely benign and nontender. I suspect this is a viral gastroenteritis. She will be discharged home with prescription for Zofran. Fluids and rest. Follow-up if not improving. History & Record Review Discussion w/independent historian: Patient and Family Additional record(s) reviewed:: Prior inpatient record, Prior outpatient record, Prior ED visit and Prior labs Lab Data Attestation: I reviewed the patient's lab results. Lab results narrative: COVID and flu and RSV all negative. Discharge Plan Triage Chief Complaint: Nausea/Vomiting Other Complaint: Dizziness Headache ED Provider: Juanjo Small Dx/Rx/DC Orders Clinical Impression: Nausea, vomiting, and diarrhea, Viral gastroenteritis Instructions: ED Dehydration (Adult), ED Gastroenteritis, Viral (Adult) Prescriptions: New ondansetron 4 mg tablet,disintegrating 4 mg PO Q6H PRN (Reason: nausea and vomiting) Qty: 7 0RF No Action omeprazole 20 MG tablet,delayed release (DR/EC) 20 mg PO [id number] [ Multi] 1 EACH tablet 1 ea PO Ibuprofen [Motrin] 800 MG tablet 800 mg PO TID PRN PRN (Reason: Pain) Qty: 60 1RF penicillin V potassium 500 mg tablet 500 mg PO 4X/DAY Qty: 39 0RF Primary Care Provider: Jayden Wooten Referrals: Jayden Wooten MD [Primary Care Provider] - 3-5 Days if not improving Activity Restrictions/Additional Instructions: Zofran as needed for nausea. Plenty of fluids and rest. Follow-up with your doctor if not improving or return if worse. You must be drinking a lot of fluids specifically water, Gatorade or 7-Up. Increase diet slowly as tolerated. Disposition Disposition: Home, Self Care
[2023-06-11] MEDS: 0.9% Normal Saline (1000mL) 1,000 ML 1000 ML IV (16:00)
[2023-06-11] MEDS: Ondansetron 4 MG/2 ML Vial IV ×2 (16:00→17:32)
--- OUTSIDE RECORDS SUMMARY | 2023-06-11 16:08 | XMS RPT_ITS | CCD ---
Author Name Unknown Address [address] [facility] [address] [place] [address] Organization [facility] Care Team Providers Care Neuropsychology Medical Consultant Name Role Phone Riddhi Snow MD Primary Care Provider RIDDHI SNOW Primary Care Unavailable RIDDHI SNOW Primary Care Unavailable RIDDHI SNOW Primary Care Unavailable SELVIN PALOMO Referring Unavailable RIDDHI SNOW Attending Unavailable RIDDHI SNOW Primary Care Unavailable RIDDHI SNOW Attending Unavailable RIDDHI SNOW Primary Care Unavailable Riddhi Snow MD Primary Care Provider [phone] Medications Current Medications Medication Drug Class(es) Dates Sig (Normalized) Sig (Original) amoxicillin 500 mg oral capsule (1 source) Penicillin-class Antibacterial Start: 10-07-2022 End: 10-17-2022 take 1 capsule by mouth twice daily amoxicillin (AMOXIL) 500 mg capsule Indications: Strep throat Take 1 capsule by mouth twice daily for 10 days. 20 capsule 0 10/07/2022 10/17/2022 Active Completed/Discontinued Medications Medication Drug Class(es) Dates Sig (Normalized) Sig (Original) acetaminophen 325 mg oral capsule (19 sources) acetaminophen 32 5 mg cap Take by mouth as needed. 0 Active Problems Active Problems Problem Classification Problem Date Documented Date Episodic/Chronic Anxiety disorders (20 sources) Mixed anxiety and depressive disorder; Translations: [Other specified anxiety disorders] Onset: 02-19-2013 Chronic Esophageal disorders (19 sources) Gastroesophageal reflux disease; Translations: [Gastro-esophageal reflux disease without esophagitis] Onset: 03-19-2014 03-19-2014 Chronic Headache; including migraine (1 source) Daily headache; Translations: [Daily headache] Episodic Menstrual disorders (1 source) Irregular periods; Translations: [Irregular menstruation, unspecified] Chronic Miscellaneous mental health disorders (2 sources) Acute insomnia; Translations: [Adjustment insomnia] Episodic Other aftercare (1 source) Patient encounter status; Translations: [Encounter for therapeutic drug level monitoring] Episodic Other connective tissue disease (1 source) Radial styloid tenosynovitis; Translations: [Radial styloid tenosynovitis [de Quervain]] Episodic Other hereditary and degenerative nervous system conditions (20 sources) Restless legs; Translations: [Restless legs syndrome] Onset: 03-19-2014 03-19-2014 Chronic Other lower respiratory disease (1 source) Cough; Translations: [Acute cough] Episodic Other non-traumatic joint disorders (1 source) Chronic pain of right upper limb; Translations: [Pain in right wrist] Episodic Other upper respiratory infections (4 sources) Upper respiratory infection; Translations: [Acute upper respiratory infection, unspecified] Episodic Residual codes; unclassified (19 sources) Sleep paralysis; Translations: [Other sleep disorders] Onset: 03-19-2014 03-19-2014 Chronic Substance-related disorders (16 sources) History of clinical finding in subject; Translations: [History of marijuana use] Onset: 10-03-2017 04-04-2018 Chronic Thyroid disorders (1 source) Acquired hypothyroidism; Translations: [Hypothyroidism, unspecified] Chronic Past or Other Problems Problem Classification Problem Date Documented Da te Episodic/Chronic Residual codes; unclassified (19 sources) Tobacco user; Translations: [Tobacco use] Onset: 10-11-2012 10-11-2012 Episodic Residual codes; unclassified (4 sources) History of clinical finding in subject; Translations: [Personal history of other specified conditions] Onset: 10-03-2017 04-04-2018 Episodic Screening and history of mental health and substance abuse codes (19 sources) H/O: anorexia nervosa; Translations: [Personal history of other mental and behavioral disorders] Onset: 03-07-2018 03-07-2018 Episodic Spondylosis; intervertebral disc disorders; other back problems (20 sources) Backache; Translations: [Dorsalgia, unspecified] Onset: 12-19-2013 05-31-2021 Episodic Results Test Name Value Interpretation Reference Range Facil ity Vital Signs Date Time Vital Sign Value Performing Clinician Dc stark 10-07-2022 09:53-0400 Body temperature 98.91 [degF] Padmini Kobe CERTIFICATION TECHNICIAN.DEBLOCKER Work Phone: [facility] 10-07-2022 09:53-0400 Body weight 83.73 kg Padmini Bullock CERTIFICATION TECHNICIAN.DEBLOCKER Work Phone: [facility] 10-07-2022 09:53-0400 Diastolic blood pressure 70 mm[Hg] Padmini Kobe CERTIFICATION TECHNICIAN.DEBLOCKER Work Phone: [facility] 10-07-2022 09:53-0400 Heart rate 67 /min Padmini Bullock CERTIFICATION TECHNICIAN.DEBLOCKER Work Phone: [facility] 10-07-2022 09:53-0400 Respiratory rate 20 /min Padmini Kobe CERTIFICATION TECHNICIAN.DEBLOCKER Work Phone: [facility] 10-07-2022 09:53-0400 SaO2% (BldA) [Mass fraction] 97 % Padmini Bullock CERTIFICATION TECHNICIAN.DEBLOCKER Work Phone: [facility] 10-07-2022 09:53-0400 Systolic blood pressure 118 mm[Hg] Padmini Bullock CERTIFICATION TECHNICIAN.DEBLOCKER Work Phone: [facility] 04-25-2022 10:30-0500 Body height 162.6 cm Riddhi Snow MD Work Phone: [facility] 04-25-2022 10:30-0500 Body temperature 96.91 [degF] Riddhi Snow MD Work Phone: [facility] 04-25-2022 10:30-0500 Body weight 87.09 kg Riddhi Snow MD Work Phone: [facility] 04-25-2022 10:30-0500 Diastolic blood pressure 70 mm[Hg] Riddhi Snow MD Work Phone: [facility] 04-25-2022 10:30-0500 Heart rate 91 /min Riddhi Snow MD Work Phone: [facility] 04-25-2022 10:30-0500 SaO2% (BldA) [Mass fraction] 99 % Riddhi Snow MD Work Phone: [facility] 04-25-2022 10:30-0500 Systolic blood pressure 122 mm[Hg] Riddhi Snow MD Work Phone: [facility] 03-22-2022 09:08-0400 Body temperature 97.81 [degF] Merlyn Castrejon APRN.DEBLOCKER Work Phone: [facility] 03-22-2022 09:08-0400 Body weight 87.27 kg Merlyn Castrejon APRN.DEBLOCKER Work Phone: [facility] 03-22-2022 09:08-0400 Diastolic blood pressure 62 mm[Hg] Merlyn Castrejon APRN.DEBLOCKER Work Phone: [facility] 03-22-2022 09:08-0400 Heart rate 65 /min Merlyn Castrejon APRN.DEBLOCKER Work Phone: [facility] 03-22-2022 09:08-0400 Respiratory rate 16 /min Merlyn Castrejon APRN.DEBLOCKER Work Phone: [facility] 03-22-2022 09:08-0400 SaO2% (BldA) [Mass fraction] 97 % Merlyn Castrejon APRN.DEBLOCKER Work Phone: [facility] 03-22-2022 09:08-0400 Systolic blood pressure 118 mm[Hg] Merlyn Castrejon APRN.DEBLOCKER Work Phone: [facility] Encounters Encounter Date Encounter Type Care Provider Facility Start: 02-24-2023 Refill Spike Shelby Rose Marie PRN.DEBLOCKER Work Phone: Family Practice Procedures Date Procedure Procedure Detail Performing Clinician Start: 10-07-2022 STREP A MOLECULAR (POC) Merlyn Castrejon APRN.DEBLOCKER Work Phone: Plan of Treatment Date Care Activity Detail Author Start: 04-04-2028 Urine microalbumin profile [facility] Start: 02-03-2023 Influenza vaccination [facility] Start: 11-10-2022 End: 01-10-2023 Hemoglobin A1c in Blood HGB A1C Lab Routine Medication monitoring encounter Expected: 11/10/2022, Expires: 01/10/2023 [facility] Work Phone: Immunizations Immunization Date Immunization Notes Care Provider Danitza hernandez 05-21-2021 Influenza, injectabl e, Madin Torie Canine Kidney, preservative free, quadrivalent Riddhi Snow MD Work Phone: [facility] 05-21-2021 influenza virus vacc ine, unspecified formulation Spike Juan JUANCARLOS.DEBLOCKER Work Phone: [facility] 05-08-2018 influenza, seasonal, injectable, preservative free Riddhi Snow MD Work Phone: [facility] 04-04-2018 tetanus toxoid, redu andreas diphtheria toxoid, and acellular pertussis vaccine, adsorbed Riddhi Snow MD Work Phone: [facility] Work Phone: 03-02-2016 influenza, injectabl e, quadrivalent, contains preservative Riddhi Snow MD Work Phone: [facility] Work Phone: 01-20-2014 pneumococcal polysaccharide vaccine, 23 valent Riddhi Snow MD Work Phone: [facility] Work Phone: 01-20-2014 tetanus toxoid, redu andreas diphtheria toxoid, and acellular pertussis vaccine, adsorbed Riddhi Snow MD Work Phone: [facility] Work Phone: Payers Date Payer Category Payer Medicaid [place] [employer] [employer] [id number] 2017-Present [phone] [address] [place] [address] Medicaid [id number] 2017 Medicaid [id number] 2017 Medicaid [id number] Social History Date Type Detail Facility Start: 04-11-2018 End: 03-22-2022 Tobacco smoking status NHIS Smokes tobacco daily [facility] End: 05-10-2007 History of tobacco use Cigarette Smoker [facility] Start: 04-05-2021 End: 10-07-2022 Alcohol intake Current drinker of alcohol (finding) [facility] Start: 03-29-2020 End: 07-05-2022 History SDOH Alcohol Frequency 2 [facility] Start: 03-29-2020 End: 07-05-2022 History SDOH Alcohol Std Drinks 1 [facility] Start: 09-28-2017 History SDOH Alcohol Comment Rarely, not while [facility] Start: 03-29-2020 End: 04-25-2022 History SDOH Social Connections Phone 4 [facility] Start: 03-29-2020 End: 07-05-2022 History SDOH Social Connections Anglican 98 [facility] Start: 02-20-2020 End: 07-05-2022 History SDOH Social Connections Living 5 [facility] Start: 02-20-2020 End: 07-05-2022 History SDOH Financial 3 [facility] Start: 02-20-2020 Education 21 [facility] Start: 04-11-2018 End: 03-22-2022 Tobacco Comment 3 cigarette a day [facility] Start: 1990 Sex Assigned At Female [facility] Start: 04-11-2018 End: 03-22-2022 Tobacco use and exposure Smokeless tobacco non-user [facility] Work Phone: Start: 03-12-2022 End: 04-25-2022 Exposure to SARS-CoV-2 (event) Not sure [facility] Work Phone: Start: 04-25-2022 End: 07-05-2022 History SDOH Alcohol Std Drinks 0 [facility] Start: 06-17-2022 End: 07-05-2022 History of Social function [facility] Start: 06-17-2022 End: 07-05-2022 Social connection and isolation panel [facility] How often do you get together with friends or relatives? Patient refused [facility] Do you belong to any clubs or organizations such as bahai groups, unions, fraternal or athletic groups, or school groups? No [facility] Are you now , , , , never or living with a partner? [facility] How often to you hav e a drink containing alcohol? Never [facility] How hard is it for y ou to pay for the very basics like food, housing, medical care, and heating Somewhat hard [facility] Do you feel stress - tense, restless, nervous, or anxious, or unable to sleep at night because your mind is troubled all the time - these days [OSQ] Very much [facility] (I/We) worried wheth er (my/our) food would run out before (I/we) got money to buy more. Sometimes true [facility] The food that (I/we) bought just didn't last, and (I/we) didn't have money to get more. Never true [facility] Start: 02-20-2020 Gender identity Identifies as female gender (finding) [facility] Clinical Notes 03-07-2018 to 02-24-2023 Telephone Encounter - Paris Grace - 02/24/2023 12:38 PM EDTTelephone Encounter - Rebecca Finn APRN.CNP - 02/24/2023 12:01 PM EDTPadmini Bullock APRN.CNP - 10/07/2022 10:44 AM EDT Note Date & Type Note Facility 02-24-2023 Miscellaneous Notes Called patient, and patient answer, then hung up. Will send a Jobzipperst message Please inform patient that they are due for OV and assist in scheduling with PCP team. Thanks. Pharmacy verified in [facility] Patient has been identified by name and date of : Yes Patient aware RX will be sent to pharmacy. No need to notify patient. Pharmacy phones for refill(s): Requested Prescriptions Pending Prescriptions Disp Refills QUEtiapine (SEROQUEL) 25 mg tablet [Pharmacy Med Name: QUETIAPINE FUMARATE 25 MG TAB] 180 tablet Sig: take 1 tablet by mouth twice a day Date of last office visit : 07/05/2022 Date of next office visit : Visit date not found Last 2 Encounter Wt Readings: Date: Wt: 10/07/2022 83.7 kg (184 lb 9.6 oz) 04/25/2022 87.1 kg (192 lb) Not applicable Please advise. Alexandra Almaguer LPN documented in this encounter [facility] 12-22-2022 Miscellaneous Notes Pharmacy verified in [facility] Patient has been identified by name and date of : Yes Patient aware RX will be sent to pharmacy. No need to notify patient. Pharmacy phones for refill(s): Requested Prescriptions Pending Prescriptions Disp Refills omeprazole (PRILOSEC) 20 mg capsule [Pharmacy Med Name: OMEPRAZOLE DR 20 MG CAPSULE] 30 capsule 2 Sig: take 1 capsule by mouth once daily 1/2 HOUR BEFORE BREAKFAST PARoxetine (PAXIL) 30 mg tablet [Pharmacy Med Name: PAROXETINE HCL 30 MG TABLET] 30 tablet 0 Sig: take 1 tablet by mouth once daily Date of last office visit : 07/05/2022 Date of next office visit : Visit date not found Last 2 Encounter Wt Readings: Date: Wt: 10/07/2022 83.7 kg (184 lb 9.6 oz) 04/25/2022 87.1 kg (192 lb) Not applicable Please advise. Alexandra Almaguer LPN documented in this encounter [facility] 12-13-2022 Miscellaneous Notes Received ED summary and xray for finger laceration from [facility]. Placed in provider's inbox for review. Route to MA scanning. documented in this encounter [facility] 11-17-2022 Miscellaneous Notes Pharmacy verified in [facility] Patient has been identified by name and date of : Yes Patient aware RX will be sent to pharmacy. No need to notify patient. Patient phones for refill(s): Requested Prescriptions Pending Prescriptions Disp Refills ibuprofen (MOTRIN) 800 mg tablet 90 tablet 0 Sig: Take 1 tablet by mouth every 8 hours as needed for pain (with food.). Date of last office visit : 04/25/2022 Date of next office visit : Visit date not found Last 2 Encounter Wt Readings: Date: Wt: 10/07/2022 83.7 kg (184 lb 9.6 oz) 04/25/2022 87.1 kg (192 lb) Not applicable Please advise. Katelynn Conti MA documented in this encounter [facility] 11-10-2022 Miscellaneous Notes LM for patient to call office and sent Mychart. Patient is due for fasting labs, orders placed. Spike Juan APRN.CARLOS Pharmacy verified in [facility] Patient has been identified by name and date of : Yes Patient aware RX will be sent to pharmacy. No need to notify patient. Pharmacy phones for refill(s): Requested Prescriptions Pending Prescriptions Disp Refills QUEtiapine (SEROQUEL) 25 mg tablet [Pharmacy Med Name: QUETIAPINE FUMARATE 25 MG TAB] 60 tablet 2 Sig: take 1 tablet by mouth twice a day Date of last office visit : 04/25/2022 Date of next office visit : Visit date not found Last 2 Encounter Wt Readings: Date: Wt: 10/07/2022 83.7 kg (184 lb 9.6 oz) 04/25/2022 87.1 kg (192 lb) Please advise. Monserrat Clements Ma documented in this encounter [facility] 11-01-2022 Miscellaneous Notes Pharmacy verified in [facility] Patient has been identified by name and date of : Yes Patient aware RX will be sent to pharmacy. No need to notify patient. Patient phones for refill(s): Requested Prescriptions Pending Prescriptions Disp Refills PARoxetine (PAXIL) 30 mg tablet [Pharmacy Med Name: PAROXETINE HCL 30 MG TABLET] 30 tablet 5 Sig: take 1 tablet by mouth once daily Date of last office visit : 04/25/2022 Date of next office visit : Visit date not found Last 2 Encounter Wt Readings: Date: Wt: 10/07/2022 83.7 kg (184 lb 9.6 oz) 04/25/2022 87.1 kg (192 lb) Not applicable Please advise. Katelynn Conti MA documented in this encounter [facility] 10-07-2022 Miscellaneous Notes Addended by: PADMINI BULLOCK on: 10/07/2022 03:33 PM Modules accepted: Orders documented in this encounter [facility] 10-07-2022 Note HNO ID: [id number] Author: Padmini Bullock APRN.CNP Service: ? Author Type: Nurse Practitioner Type: Progress Notes Filed: 10/07/2022 10:46 AM Note Text: Subjective HPI HPI Ashanti Tian is a 32 year old female who presents today for CC of st, cough, fever. This started 3 days ago. Has tried otc medication for relief. Symptoms are worsened by nothing. Risk factors, no known sick exposures. Smoker. Denies possibility of being . .Patient presents with: Pain, Throat: Pt reported throat pain, fever, cough x3 days. 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 MEDICATIONS buprenorphine-naloxone (SUBOXONE) 8-2 mg film dissolve 1 FILM under the tongue twice a day cetirizine (ZYRTEC) 10 mg tablet take 1 tablet by mouth once daily QUEtiapine (SEROQUEL) 25 mg tablet Take 1 tablet by mouth twice daily. levothyroxine (LEVOXYL) 50 mcg tablet Take 1 tablet by mouth once daily. Take on empty stomach. For Thyroid ibuprofen (MOTRIN) 800 mg tablet Take 1 tablet by mouth every 8 hours as needed for pain (with food.). omeprazole (PRILOSEC) 20 mg capsule Take 1 capsule by mouth daily before breakfast. 1/2 hr before meal. PARoxetine (PAXIL) 30 mg tablet Take 1 tablet by mouth once daily. albuterol HFA (PROVENTIL HFA, VENTOLIN HFA) 90 mcg/actuation inhaler Inhale 2 Puffs as instructed every 6 hours as needed for wheezing/shortness of breath. acetaminophen 325 mg cap Take by mouth as needed. amoxicillin (AMOXIL) 500 mg capsule Take 1 capsule by mouth twice daily for 10 days. benzonatate (TESSALON PERLE) 100 mg capsule Take 2 capsules by mouth three times daily as needed. FAMILY HISTORY Problem Relation Age of Onset Alcohol/Drug Mother ETOH Aneurysm Mother x 2, smoker Cancer Father Throat other (Other) Sister Hysterectomy Alcohol/Drug Maternal Grandmother ETOH Cancer Maternal Grandmother lung cancer, smoker Coronary Artery Disease Maternal Grandfather Stroke Maternal Grandfather Alcohol/Drug Paternal Grandmother ETOH Arthritis Paternal Grandmother Cancer Paternal Grandmother BONE CANCER Hypertension Paternal Grandmother Osteoporosis Paternal Grandmother Hypertension Paternal Grandfather Breast Cancer Maternal Aunt Social History Tobacco Use Smoking status: Every Day Years: 16.00 Types: Cigarettes Last attempt to quit: 05/10/2007 Years since quittin.4 Smokeless tobacco: Never Tobacco comments: 3 cigarette a day Substance Use Topics Alcohol use: Yes Comment: Rarely, not while Drug use: No Comment: has used marijuana in past but not since 04/2007 Review of Systems Constitutional: Positive for fever. HENT: Positive for congestion and sore throat. Negative for ear pain and nosebleeds. Respiratory: Positive for cough. Negative for shortness of breath and wheezing. Cardiovascular: Negative for chest pain. Gastrointestinal: Positive for vomiting. Negative for abdominal pain and diarrhea. Musculoskeletal: Negative for neck pain. Skin: Negative for itching and rash. Objective Physical Exam Constitutional: General: She is not in acute distress. Appearance: She is not toxic-appearing or diaphoretic. HENT: Head: Normocephalic and atraumatic. Right Ear: Hearing normal. Left Ear: Hearing normal. Nose: Nose normal. Mouth/Throat: Pharynx: Uvula midline. Posterior oropharyngeal erythema present. No pharyngeal swelling, oropharyngeal exudate or uvula swelling. Eyes: General: Lids are normal. No scleral icterus. Right eye: No discharge. Left eye: No discharge. Conjunctiva/sclera: Conjunctivae normal. Pupils: Pupils are equal, round, and reactive to light. Neck: Trachea: Trachea normal. Cardiovascular: Rate and Rhythm: Normal rate and regular rhythm. Heart sounds: Normal heart sounds. Pulmonary: Effort: Pulmonary effort is normal. Breath sounds: Normal breath sounds. Musculoskeletal: Cervical back: Normal range of motion and neck supple. Lymphadenopathy: Cervical: Cervical adenopathy present. Right cervical: Superficial cervical adenopathy present. Left cervical: Superficial cervical adenopathy present. Skin: Findings: No rash. Neurological: Mental Status: She is alert and oriented to person, place, and time. ASSESSMENT/PLAN: 1. Strep throat - ICD9: 034.0, ICD10: J02.0 (primary diagnosis) - suspect strep - Alere Strep Test pos, no culture pending - antibiotic as w (more content not included)... [facility] 10-07-2022 History of Presen t illness Narrative Subjective HPI HPI Ashanti Tian is a 32 year old female who presents today for CC of st, cough, fever. This started 3 days ago. Has tried otc medication for relief. Symptoms are worsened by nothing. Risk factors, no known sick exposures. Smoker. Denies possibility of being . .Patient presents with: Pain, Throat: Pt reported throat pain, fever, cough x3 days. 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 MEDICATIONS buprenorphine-naloxone (SUBOXONE) 8-2 mg film dissolve 1 FILM under the tongue twice a day cetirizine (ZYRTEC) 10 mg tablet take 1 tablet by mouth once daily QUEtiapine (SEROQUEL) 25 mg tablet Take 1 tablet by mouth twice daily. levothyroxine (LEVOXYL) 50 mcg tablet Take 1 tablet by mouth once daily. Take on empty stomach. For Thyroid ibuprofen (MOTRIN) 800 mg tablet Take 1 tablet by mouth every 8 hours as needed for pain (with food.). omeprazole (PRILOSEC) 20 mg capsule Take 1 capsule by mouth daily before breakfast. 1/2 hr before meal. PARoxetine (PAXIL) 30 mg tablet Take 1 tablet by mouth once daily. albuterol HFA (PROVENTIL HFA, VENTOLIN HFA) 90 mcg/actuation inhaler Inhale 2 Puffs as instructed every 6 hours as needed for wheezing/shortness of breath. acetaminophen 325 mg cap Take by mouth as needed. amoxicillin (AMOXIL) 500 mg capsule Take 1 capsule by mouth twice daily for 10 days. benzonatate (TESSALON PERLE) 100 mg capsule Take 2 capsules by mouth three times daily as needed. FAMILY HISTORY Problem Relation Age of Onset Alcohol/Drug Mother ETOH Aneurysm Mother x 2, smoker Cancer Father Throat other (Other) Sister Hysterectomy Alcohol/Drug Maternal Grandmother ETOH Cancer Maternal Grandmother lung cancer, smoker Coronary Artery Disease Maternal Grandfather Stroke Maternal Grandfather Alcohol/Drug Paternal Grandmother ETOH Arthritis Paternal Grandmother Cancer Paternal Grandmother BONE CANCER Hypertension Paternal Grandmother Osteoporosis Paternal Grandmother Hypertension Paternal Grandfather Breast Cancer Maternal Aunt Social History Tobacco Use Smoking status: Every Day Years: 16.00 Types: Cigarettes Last attempt to quit: 05/10/2007 Years since quittin.4 Smokeless tobacco: Never Tobacco comments: 3 cigarette a day Substance Use Topics Alcohol use: Yes Comment: Rarely, not while Drug use: No Comment: has used marijuana in past but not since 04/2007 Review of Systems Constitutional: Positive for fever. HENT: Positive for congestion and sore throat. Negative for ear pain and nosebleeds. Respiratory: Positive for cough. Negative for shortness of breath and wheezing. Cardiovascular: Negative for chest pain. Gastrointestinal: Positive for vomiting. Negative for abdominal pain and diarrhea. Musculoskeletal: Negative for neck pain. Skin: Negative for itching and rash. Objective Physical Exam Constitutional: General: She is not in acute distress. Appearance: She is not toxic-appearing or diaphoretic. HENT: Head: Normocephalic and atraumatic. Right Ear: Hearing normal. Left Ear: Hearing normal. Nose: Nose normal. Mouth/Throat: Pharynx: Uvula midline. Posterior oropharyngeal erythema present. No pharyngeal swelling, oropharyngeal exudate or uvula swelling. Eyes: General: Lids are normal. No scleral icterus. Right eye: No discharge. Left eye: No discharge. Conjunctiva/sclera: Conjunctivae normal. Pupils: Pupils are equal, round, and reactive to light. Neck: Trachea: Trachea normal. Cardiovascular: Rate and Rhythm: Normal rate and regular rhythm. Heart sounds: Normal heart sounds. Pulmonary: Effort: Pulmonary effort is normal. Breath sounds: Normal breath sounds. Musculoskeletal: Cervical back: Normal range of motion and neck supple. Lymphadenopathy: Cervical: Cervical adenopathy present. Right cervical: Superficial cervical adenopathy present. Left cervical: Superficial cervical adenopathy present. Skin: Findings: No rash. Neurological: Mental Status: She is alert and oriented to person, place, and time. ASSESSMENT/PLAN: 1. Strep throat - ICD9: 034.0, ICD10: J02.0 (primary diagnosis) - suspect strep - Alere Strep Test pos, no culture pending - antibiotic as written - Discussed supportive care treatment with fluids, rest and analgesia. - The patient should follow up in 3-5 days if symptoms persist or worsen - Call back if drooling, increased temperature, symptoms of dehydration and/or still sick in one week - AMOXICILLIN 500 MG CAPSULE 2. Sore throat - ICD9: 462, ICD10: J02.9 Pos, strep - STREP A MOLECULAR (POC) 3. URI, acute - ICD9: 465.9, ICD10: J06.9 Concurrent with strep - Discussed viral etiology and rationale for treatment. - Symptomatic treatment with prn analgesia - Supportive care with fluids and rest - BENZONATATE 100 MG CAPSULE Padmini Bullock APRN.DEBLOCKER documented in this encounter [facility] 09-14-2022 Miscellaneous Notes Pharmacy verified in [facility] Patient has been identified by name and date of : Yes Patient aware RX will be sent to pharmacy. No need to notify patient. Pharmacy phones for refill(s): Requested Prescriptions Pending Prescriptions Disp Refills cetirizine (ZYRTEC) 10 mg tablet [Pharmacy Med Name: CETIRIZINE HCL 10 MG TABLET] 30 tablet 0 Sig: take 1 tablet by mouth once daily Date of last office visit : 04/25/2022 Date of next office visit : Visit date not found Last 2 Encounter Wt Readings: Date: Wt: 04/25/2022 87.1 kg (192 lb) 03/22/2022 87.3 kg (192 lb 6.4 oz) Not applicable Please advise. Alexandra Almaguer LPN documented in this encounter [facility] 08-17-2022 Miscellaneous Notes The following approved medication requests have been transmitted electronically. Requested Prescriptions Signed Prescriptions Disp Refills levothyroxine (LEVOXYL) 50 mcg tablet 30 tablet 5 Sig: Take 1 tablet by mouth once daily. Take on empty stomach. For Thyroid TSH ordered for early October Riddhi Snow MD documented in this encounter [facility] 08-17-2022 Miscellaneous Notes The following approved medication requests have been transmitted electronically. Requested Prescriptions Signed Prescriptions Disp Refills QUEtiapine (SEROQUEL) 25 mg tablet 60 tablet 2 Sig: Take 1 tablet by mouth twice daily. Riddhi Snow MD Pharmacy verified in [facility] Patient has been identified by name and date of : Yes Patient aware RX will be sent to pharmacy. No need to notify patient. Patient phones for refill(s): Requested Prescriptions Pending Prescriptions Disp Refills QUEtiapine (SEROQUEL) 25 mg tablet 60 tablet 2 Sig: Take 1 tablet by mouth twice daily. Date of last office visit : 04/25/2022 Date of next office visit : Visit date not found Last 2 Encounter Wt Readings: Date: Wt: 04/25/2022 87.1 kg (192 lb) 03/22/2022 87.3 kg (192 lb 6.4 oz) Not applicable Please advise. Alexandra Almaguer LPN documented in this encounter [facility] 08-15-2022 Miscellaneous Notes The following approved medication requests have been transmitted electronically. Requested Prescriptions Signed Prescriptions Disp Refills omeprazole (PRILOSEC) 20 mg capsule 30 capsule 2 Sig: Take 1 capsule by mouth daily before breakfast. 1/2 hr before meal. Authorizing Provider: SPIKE JUAN MD Pharmacy verified in [employer]. Patient has been identified by name and date of : Yes Patient aware RX will be sent to pharmacy. No need to notify patient. Patient phones for refill(s): Requested Prescriptions Pending Prescriptions Disp Refills omeprazole (PRILOSEC) 20 mg capsule 30 capsule 2 Sig: Take 1 capsule by mouth daily before breakfast. 1/2 hr before meal. Date of last office visit : 04/25/2022 Date of next office visit : Visit date not found Last 2 Encounter Wt Readings: Date: Wt: 04/25/2022 87.1 kg (192 lb) 03/22/2022 87.3 kg (192 lb 6.4 oz) Not applicable Please advise. Nina Roman MA documented in this encounter [facility] 08-15-2022 Miscellaneous Notes The following approved medication requests have been transmitted electronically. Requested Prescriptions Signed Prescriptions Disp Refills cetirizine (ZYRTEC) 10 mg tablet 30 tablet 0 Sig: Take 1 tablet by mouth once daily. Authorizing Provider: SPIKE JUAN ibuprofen (MOTRIN) 800 mg tablet 90 tablet 0 Sig: Take 1 tablet by mouth every 8 hours as needed for pain (with food.). Authorizing Provider: SPIKE JUAN MD Pharmacy verified in [facility] Patient has been identified by name and date of : Yes Patient aware RX will be sent to pharmacy. No need to notify patient. Patient phones for refill(s): Requested Prescriptions Pending Prescriptions Disp Refills cetirizine (ZYRTEC) 10 mg tablet 30 tablet 1 Sig: Take 1 tablet by mouth once daily. ibuprofen (MOTRIN) 800 mg tablet 90 tablet 5 Sig: Take 1 tablet by mouth every 8 hours as needed for pain (with food.). Date of last office visit : 04/25/2022 Date of next office visit : 08/15/2022 Last 2 Encounter Wt Readings: Date: Wt: 04/25/2022 87.1 kg (192 lb) 03/22/2022 87.3 kg (192 lb 6.4 oz) Please advise. Monserrat Clements Ma documented in this encounter [facility] 07-05-2022 Note HNO ID: [id number] Author: Riddhi Snow MD Service: ? Author Type: Physician Type: Progress Notes Filed: 07/05/2022 5:14 PM Note Text: This Team Access Model visit is a virtual encounter. It required patient-provider interaction for the medical decision making as documented below. The patient consented to proceed by video encounter before initiating the encounter. DISTANCE HEALTH VISIT Ashanti Tian is a 32 year old female seen for follow up management of insomnia. Insomnia Patient has not been sleeping. She says that this has been making her anxiety and depression worse. She is not able to leave the house without having an anxiety attack. She recently lost her job. Patient has been taking Paxil 30 mg. HISTORY REVIEWED (electronic chart updated): - medical history - medications - allergies REVIEW OF SYSTEMS: General: Feels well, no weight changes, fever, chills. +insomnia HEENT: No sinus congestion, earache, sore throat. Cardiac: No chest pain, palpitations Resp: No cough, wheeze, shortness of breath GI: No reflux symptoms, food intolerance, bowel changes. : No urinary frequency, dysuria. MS: No pain or joint complaints. PHYSICAL EXAMINATION: VIDEO EXAM: performed via video enabled technology GENERAL: alert and appropriate, in no distress and well-hydrated, well nourished ASSESSMENT/PLAN: This encounter occurred by video encounter over the course of 10 minutes. (F41.8) Depression with anxiety (primary encounter diagnosis) (F41.1) EMILIANO (generalized anxiety disorder) Adj insomnia. Comment: Patient has not been able to sleep Plan: begin on Seroquel short term hs/ BID Requested Prescriptions Signed Prescriptions Disp Refills QUEtiapine (SEROQUEL) 25 mg tablet 60 tablet 2 Sig: Take 1 tablet by mouth twice daily. RTO: 1 month Scribe Attestation: By signing my name below, ILizz, attest that this documentation has been prepared under the direction and in the presence of Jayden Snow M.D.. Electronically Signed: Valeriy Knox. July 05, 2022 9:17 AM. This telehealth encounter is provided under a state of emergency due to COVID19 and is for care for condition where providing the care is supportive of minimizing potential exposure and/or transmission of COVID19. Provider Attestation: IRiddhi MD, personally performed the services described in this documentation. All medical record entries made by the scribe were at my direction and in my presence. I have reviewed the chart and discharge instructions (if applicable) and agree that the record reflects my personal performance and is accurate and complete. Electronically Signed: Riddhi Snow MD July 05, 2022 5:13 PM [facility] 07-05-2022 History of Presen t illness Narrative This Team Access Model visit is a virtual encounter. It required patient-provider interaction for the medical decision making as documented below. The patient consented to proceed by video encounter before initiating the encounter. DISTANCE HEALTH VISIT Ashanti Tian is a 32 year old female seen for follow up management of insomnia. Insomnia Patient has not been sleeping. She says that this has been making her anxiety and depression worse. She is not able to leave the house without having an anxiety attack. She recently lost her job. Patient has been taking Paxil 30 mg. HISTORY REVIEWED (electronic chart updated): - medical history - medications - allergies REVIEW OF SYSTEMS: General: Feels well, no weight changes, fever, chills. +insomnia HEENT: No sinus congestion, earache, sore throat. Cardiac: No chest pain, palpitations Resp: No cough, wheeze, shortness of breath GI: No reflux symptoms, food intolerance, bowel changes. : No urinary frequency, dysuria. MS: No pain or joint complaints. PHYSICAL EXAMINATION: VIDEO EXAM: performed via video enabled technology GENERAL: alert and appropriate, in no distress and well-hydrated, well nourished ASSESSMENT/PLAN: This encounter occurred by video encounter over the course of 10 minutes. (F41.8) Depression with anxiety (primary encounter diagnosis) (F41.1) EMILIANO (generalized anxiety disorder) Adj insomnia. Comment: Patient has not been able to sleep Plan: begin on Seroquel short term hs/ BID Requested Prescriptions Signed Prescriptions Disp Refills QUEtiapine (SEROQUEL) 25 mg tablet 60 tablet 2 Sig: Take 1 tablet by mouth twice daily. RTO: 1 month Scribe Attestation: By signing my name below, ILizz, attest that this documentation has been prepared under the direction and in the presence of Jayden Snow M.D.. Electronically Signed: Valeriy Knox. July 05, 2022 9:17 AM. This telehealth encounter is provided under a state of emergency due to COVID19 and is for care for condition where providing the care is supportive of minimizing potential exposure and/or transmission of COVID19. Provider Attestation: Riddhi Rivera MD, personally performed the services described in this documentation. All medical record entries made by the scribe were at my direction and in my presence. I have reviewed the chart and discharge instructions (if applicable) and agree that the record reflects my personal performance and is accurate and complete. Electronically Signed: Riddhi Snow MD July 05, 2022 5:13 PM documented in this encounter [facility] 04-25-2022 Note HNO ID: [id number] Author: Riddhi Snow MD Service: ? Author Type: Physician Type: Progress Notes Filed: 04/25/2022 3:55 PM Note Text: CHIEF COMPLAINT Patient presents with: medication and overall health HISTORY OF PRESENT ILLNESS Ashanti Tian is a 32 year old female who presents here today for follow up management of medications. I last saw this patient on 07/07/21. Anxiety Patient has been out of her medication for a week She has been having a lot of depression and having the inability to focus. She loses the ability to concentrate when she is talking. Patient notes feeling restless. Cough Patients daughter had RSV and now patient has had a cough as well. She denies having a sore throat or a fever. Patient is no longer wheezing. Irregular Periods Patients periods have been irregular. She is on Nexplanon. Sometimes they last 2 days sometimes they last 7. Headaches Patient has neck pain that she thinks is causing her headaches. Weakness Patient has trouble holding onto things. She has pain in her wrists. She describes the pain as a shooting pain Health Maintenance Due for Hepatitis B Due for Pneumovax. Due for COVID booster Due for influenza Due for routine pap testing. Due for HPV testing. Labs reviewed. Past medical history, appointments, medications, allergies reviewed. REVIEW OF SYSTEMS Pertinent positives/ negatives: General: Feels well, no fever, no chills, +obesity. HEENT: No sinus congestion, earache, sore throat. +headache Cardiac: No chest pain, palpitations Resp: No wheeze, shortness of breath +cough GI: No reflux symptoms, food intolerance, bowel changes. : No urinary frequency, dysuria. 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 General: Alert, well developed, well nourished, no distress, pleasant and cooperative. Obese. Heart: Regular rate and rhythm. Normal S1 and S2. No murmurs, rubs, or gallops. Lungs: Clear to auscultation bilaterally. No respiratory distress. No wheezes, rales, or rhonchi. Abdomen: Soft, non-tender, no distention. Extremities: Feet/ankles without edema, posterior tibial pulses full and symmetrical. Assessment/Plan (F41.1) EMILIANO (generalized anxiety disorder) (primary encounter diagnosis) Comment: in need of refill Plan: amitriptyline (ELAVIL) 25 mg tablet, PARoxetine (PAXIL) 30 mg tablet (F41.8) Depression with anxiety (F51.02) Adjustment insomnia Comment: in need of refill Plan: amitriptyline (ELAVIL) 25 mg tablet, PARoxetine (PAXIL) 30 mg tablet, COMP METABOLIC PANEL, TSH BLD, CBC (G25.81) Restless legs Comment: in need of refill Plan: CBC, IRON + TIBC, FERRITIN BLD (J06.9) URI with cough and congestion Comment: improving Plan: continue to monitor (N92.6) Menstrual periods irregular Comment: currently has implant control Plan: follow up with OBGYN (R51.9) Daily headache (M54.2) Neck pain Comment: has associated neck pain Plan: XR CERV OTHER 4V AP/LAT/OBL (M25.531, G89.29) Chronic wrist pain, right (M65.4) De Quervain's disease (radial styloid tenosynovitis) Comment: creating weakness in hands Plan: XR WRIST GENERAL 3V PA/LAT/OBL RIGHT, CONSULT TO ORTHOPAEDICS Requested Prescriptions Signed Prescriptions Disp Refills cetirizine (ZYRTEC) 10 mg tablet 30 tablet 1 Sig: Take 1 tablet by mouth once daily. amitriptyline (ELAVIL) 25 mg tablet 30 tablet 5 Sig: Take 1 tablet by mouth daily at bedtime. PARoxetine (PAXIL) 30 mg tablet 30 tablet 5 Sig: Take 1 tablet by mouth once daily. ibuprofen (MOTRIN) 800 mg tablet 90 tablet 5 Sig: Take 1 tablet by mouth every 8 hours as needed for pain (with food.). RTO: 1 month Scribe Attestation: By signing my name below, ILizz, attest that this documentation has been prepared under the direction and in the presence of Jayden Snow M.D. Electronically Signed: Valeriy Knox. April 25, 2022 8:11 AM Provider Attestation: I, Riddhi Snow MD, personally performed the services described in this documentation. All medical record entries made by the scribe were at my direction and in my presence. I have reviewed the chart and discharge instructions (if applicable) and agree that the record reflects my personal performance and is accurate and complete. Electronically Signed: MD Damien Etienne (more content not included)... [facility] 04-25-2022 History of Presen t illness Narrative CHIEF COMPLAINT Patient presents with: medication and overall health HISTORY OF PRESENT ILLNESS Ashanti Tian is a 32 year old female who presents here today for follow up management of medications. I last saw this patient on 07/07/21. Anxiety Patient has been out of her medication for a week She has been having a lot of depression and having the inability to focus. She loses the ability to concentrate when she is talking. Patient notes feeling restless. Cough Patients daughter had RSV and now patient has had a cough as well. She denies having a sore throat or a fever. Patient is no longer wheezing. Irregular Periods Patients periods have been irregular. She is on Nexplanon. Sometimes they last 2 days sometimes they last 7. Headaches Patient has neck pain that she thinks is causing her headaches. Weakness Patient has trouble holding onto things. She has pain in her wrists. She describes the pain as a shooting pain Health Maintenance Due for Hepatitis B Due for Pneumovax. Due for COVID booster Due for influenza Due for routine pap testing. Due for HPV testing. Labs reviewed. Past medical history, appointments, medications, allergies reviewed. REVIEW OF SYSTEMS Pertinent positives/ negatives: General: Feels well, no fever, no chills, +obesity. HEENT: No sinus congestion, earache, sore throat. +headache Cardiac: No chest pain, palpitations Resp: No wheeze, shortness of breath +cough GI: No reflux symptoms, food intolerance, bowel changes. : No urinary frequency, dysuria. 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 Obese. Heart: Regular rate and rhythm. Normal S1 and S2. No murmurs, rubs, or gallops. Lungs: Clear to auscultation bilaterally. No respiratory distress. No wheezes, rales, or rhonchi. Abdomen: Soft, non-tender, no distention. Extremities: Feet/ankles without edema, posterior tibial pulses full and symmetrical. Assessment/Plan (F41.1) EMILIANO (generalized anxiety disorder) (primary encounter diagnosis) Comment: in need of refill Plan: amitriptyline (ELAVIL) 25 mg tablet, PARoxetine (PAXIL) 30 mg tablet (F41.8) Depression with anxiety (F51.02) Adjustment insomnia Comment: in need of refill Plan: amitriptyline (ELAVIL) 25 mg tablet, PARoxetine (PAXIL) 30 mg tablet, COMP METABOLIC PANEL, TSH BLD, CBC (G25.81) Restless legs Comment: in need of refill Plan: CBC, IRON + TIBC, FERRITIN BLD (J06.9) URI with cough and congestion Comment: improving Plan: continue to monitor (N92.6) Menstrual periods irregular Comment: currently has implant control Plan: follow up with OBGYN (R51.9) Daily headache (M54.2) Neck pain Comment: has associated neck pain Plan: XR CERV OTHER 4V AP/LAT/OBL (M25.531, G89.29) Chronic wrist pain, right (M65.4) De Quervain's disease (radial styloid tenosynovitis) Comment: creating weakness in hands Plan: XR WRIST GENERAL 3V PA/LAT/OBL RIGHT, CONSULT TO ORTHOPAEDICS Requested Prescriptions Signed Prescriptions Disp Refills cetirizine (ZYRTEC) 10 mg tablet 30 tablet 1 Sig: Take 1 tablet by mouth once daily. amitriptyline (ELAVIL) 25 mg tablet 30 tablet 5 Sig: Take 1 tablet by mouth daily at bedtime. PARoxetine (PAXIL) 30 mg tablet 30 tablet 5 Sig: Take 1 tablet by mouth once daily. ibuprofen (MOTRIN) 800 mg tablet 90 tablet 5 Sig: Take 1 tablet by mouth every 8 hours as needed for pain (with food.). RTO: 1 month Scribe Attestation: By signing my name below, I, Lizz Hernandez, attest that this documentation has been prepared under the direction and in the presence of Jayden Snow M.D. Electronically Signed: Valeriy Knox. April 25, 2022 8:11 AM Provider Attestation: I, Riddhi Snow MD, personally performed the services described in this documentation. All medical record entries made by the scribe were at my direction and in my presence. I have reviewed the chart and discharge instructions (if applicable) and agree that the record reflects my personal performance and is accurate and complete. Electronically Signed: Riddhi Snow MD April 25, 2022 3:55 PM documented in this encounter [facility] 03-22-2022 Influenza virus A and B RNA and SARS-CoV-2 (COVID-19) N gene panel KRISTAN+probe (Resp) COVID 19 RESULT: SARS-CoV-2 (Agent of COVID-19) Not Detected by RT-PCR or equivalent method. eliceo [id number] [employer] (DIANE)_EUA This test was developed and its performance characteristics determined by [facility] [place]. This test has been authorized by FDA under an Emergency Use Authorization (EUA). This test has been validated in accordance with the FDA's Guidance Document Policy for Diagnostics Testing in Laboratories Certified to Perform High Complexity Testing under CLIA prior to Emergency use Authorization for Coronavirus Disease 2019 during the Public Health Emergency issued on August 03, 2019. Test performed by [facility], [facility] [place], [address], [place] [address]. INFLUENZA A PCR: Negative for Influenza A by RT-PCR INFLUENZA B PCR: Negative for Influenza B by RT-PCR [facility] documented as of this encounter (statuses as of 09/29/2021) [facility]2018 History of Past illness Narrative* Problem Noted Date Resolved Date Uterine size-date discrepancy in third trimester 03/07/2018 05/23/2018 Overview: 04/18/18 - BPP = 8/8, EFW = 6%ile, SULEIMAN = 7. Agnieszka Torres APRN.CN March 07, 2018 EFW is 8%. HC is 1 standard deviation lower than mean. Still within range for normal and intracranial structures are normal. Weekly BPPs and growth scan in 3-4 weeks per [facility]. Leanne Rascon MD Low-lying placenta 12/29/2017 05/23/2018 Overview: 03/07- placenta not low lying. Leanne Rascon MD 02/08/18 - still low lying, needs repeat US in 4 weeks - KJ 12/29/17 - repeat US ordered - KJ Nausea/vomiting in 09/28/201708/2017 Overview: 09/28/2017 Patient is complaining of nausea and vomiting in . She states she has vomiting in the morning and nauseated all day. Approximately 7w4d . Advised patient to call/come in if she is unable to keep any food or fluids down in a 24-hour period. Patient requesting Phenergan RX. See phone note dates 09/28.TKRN Tobacco use in , antepartum 09/28/2017 05/23/2018 Overview: 02/21/18 No taking Wellbutrin. Continuing to cut back. SW 12/27/17-Smoking 5-6 CPD, wants to quit and planning to start back on Wellbutrin. Advised cessation and reviewed risks to self and baby. Conchita Zarco APRN.CNM 09/28/2017 Pt smokes 1/2 pack a day of cigarettes. Discussed risks of smoking during . Advised pt to quit.TKRN Patient requested diagnostic testing 09/28/2017 03/07/2018 Overview: 09/28/2017 Patient desires nuchal ultrasound and CF carrier screening testing. TKRN Acute appendicitis without mention of peritoniti s 07/18/2014 03/07/2018 Dizzy spells 05/13/2014 03/21/2018 VANNA (obstructive sleep apnea) 03/19/2014 Shoulder pain, acute 12/19/2013 03/07/2018 Last Assessment & Plan: Fell down the steps And hurt her shoulder. Went to Er got xrays, no fractures. Sent back home but she still is having a lot of pain, she cannot lift above the shoulders, ROM is decreased. Insomnia 02/19/2013 03/21/2018 Last Assessment & Plan: The hydroxyzine is helping with her insomnia along with her melatonin. But if she takes it in the day she gets sleepy, Dry skin 10/11/2012 03/07/2018 Brittle hair 10/11/2012 03/21/2018 Thoracic back pain 10/11/2012 03/21/2018 Supervision of normal first 06/15/2007 01/11/2008 documented as of this encounter (statuses as of 10/13/2021) [facility] History of Past illness Narrative* Problem Noted Date Resolved Date Uterine size-date discrepancy in third trimester 03/07/2018 05/23/2018 Overview: 04/18/18 - BPP = 8/8, EFW = 6%ile, SULEIMAN = 7. Agnieszka Torres APRN.CNM March 07, 2018 EFW is 8%. HC is 1 standard deviation lower than mean. Still within range for normal and intracranial structures are normal. Weekly BPPs and growth scan in 3-4 weeks per [facility]. Leanne Rascon MD Low-lying placenta 12/29/2017 05/23/2018 Overview: 03/07- placenta not low lying. Leanne Rascon MD 02/08/18 - still low lying, needs repeat US in 4 weeks - KJ 12/29/17 - repeat US ordered - KJ Nausea/vomiting in 09/28/201708/2017 Overview: 09/28/2017 Patient is complaining of nausea and vomiting in . She states she has vomiting in the morning and nauseated all day. Approximately 7w4d . Advised patient to call/come in if she is unable to keep any food or fluids down in a 24-hour period. Patient requesting Phenergan RX. See phone note dates 09/28.TKRN Tobacco use in , antepartum 09/28/2017 05/23/2018 Overview: 02/21/18 No taking Wellbutrin. Continuing to cut back. SW 12/27/17-Smoking 5-6 CPD, wants to quit and planning to start back on Wellbutrin. Advised cessation and reviewed risks to self and baby. Conchita Zarco APRN.CNM 09/28/2017 Pt smokes 1/2 pack a day of cigarettes. Discussed risks of smoking during . Advised pt to quit.TKRN Patient requested diagnostic testing 09/28/2017 03/07/2018 Overview: 09/28/2017 Patient desires nuchal ultrasound and CF carrier screening testing. TKRN Acute appendicitis without mention of peritoniti s 07/18/2014 03/07/2018 Dizzy spells 05/13/2014 03/21/2018 VANNA (obstructive sleep apnea) 03/19/2014 Shoulder pain, acute 12/19/2013 03/07/2018 Last Assessment & Plan: Fell down the steps And hurt her shoulder. Went to Er got xrays, no fractures. Sent back home but she still is having a lot of pain, she cannot lift above the shoulders, ROM is decreased. Insomnia 02/19/2013 03/21/2018 Last Assessment & Plan: The hydroxyzine is helping with her insomnia along with her melatonin. But if she takes it in the day she gets sleepy, Dry skin 10/11/2012 03/07/2018 Brittle hair 10/11/2012 03/21/2018 Thoracic back pain 10/11/2012 03/21/2018 Supervision of normal first 06/15/2007 01/11/2008 documented as of this encounter (statuses as of 10/13/2021) [facility] History of Past illness Narrative* Problem Noted Date Resolved Date Uterine size-date discrepancy in third trimester 03/07/2018 05/23/2018 Overview: 04/18/18 - BPP = 8/8, EFW = 6%ile, SULEIMAN = 7. Agnieszka Torres APRN.CN March 07, 2018 EFW is 8%. HC is 1 standard deviation lower than mean. Still within range for normal and intracranial structures are normal. Weekly BPPs and growth scan in 3-4 weeks per [facility]. Leanne Rascon MD Low-lying placenta 12/29/2017 05/23/2018 Overview: 03/07- placenta not low lying. Leanne Rascon MD 02/08/18 - still low lying, needs repeat US in 4 weeks - KJ 12/29/17 - repeat US ordered - KJ Nausea/vomiting in 09/28/201708/2017 Overview: 09/28/2017 Patient is complaining of nausea and vomiting in . She states she has vomiting in the morning and nauseated all day. Approximately 7w4d . Advised patient to call/come in if she is unable to keep any food or fluids down in a 24-hour period. Patient requesting Phenergan RX. See phone note dates 09/28.TKRN Tobacco use in , antepartum 09/28/2017 05/23/2018 Overview: 02/21/18 No taking Wellbutrin. Continuing to cut back. SW 12/27/17-Smoking 5-6 CPD, wants to quit and planning to start back on Wellbutrin. Advised cessation and reviewed risks to self and baby. Conchita Zarco APRN.CNM 09/28/2017 Pt smokes 1/2 pack a day of cigarettes. Discussed risks of smoking during . Advised pt to quit.TKRN Patient requested diagnostic testing 09/28/2017 03/07/2018 Overview: 09/28/2017 Patient desires nuchal ultrasound and CF carrier screening testing. TKRN Acute appendicitis without mention of peritoniti s 07/18/2014 03/07/2018 Dizzy spells 05/13/2014 03/21/2018 VANNA (obstructive sleep apnea) 03/19/2014 Shoulder pain, acute 12/19/2013 03/07/2018 Last Assessment & Plan: Fell down the steps And hurt her shoulder. Went to Er got xrays, no fractures. Sent back home but she still is having a lot of pain, she cannot lift above the shoulders, ROM is decreased. Insomnia 02/19/2013 03/21/2018 Last Assessment & Plan: The hydroxyzine is helping with her insomnia along with her melatonin. But if she takes it in the day she gets sleepy, Dry skin 10/11/2012 03/07/2018 Brittle hair 10/11/2012 03/21/2018 Thoracic back pain 10/11/2012 03/21/2018 Supervision of normal first 06/15/2007 01/11/2008 documented as of this encounter (statuses as of 02/08/2022) [facility] History of Past illness Narrative* Problem Noted Date Resolved Date Uterine size-date discrepancy in third trimester 03/07/2018 05/23/2018 Overview: 04/18/18 - BPP = 8/8, EFW = 6%ile, SULEIMAN = 7. Agnieszka Torres APRN.CNM March 07, 2018 EFW is 8%. HC is 1 standard deviation lower than mean. Still within range for normal and intracranial structures are normal. Weekly BPPs and growth scan in 3-4 weeks per [facility]. Leanne Rascon MD Low-lying placenta 12/29/2017 05/23/2018 Overview: 03/07- placenta not low lying. Leanne Rascon MD 02/08/18 - still low lying, needs repeat US in 4 weeks - KJ 12/29/17 - repeat US ordered - KJ Nausea/vomiting in 09/28/201708/2017 Overview: 09/28/2017 Patient is complaining of nausea and vomiting in . She states she has vomiting in the morning and nauseated all day. Approximately 7w4d . Advised patient to call/come in if she is unable to keep any food or fluids down in a 24-hour period. Patient requesting Phenergan RX. See phone note dates 09/28.TKRN Tobacco use in , antepartum 09/28/2017 05/23/2018 Overview: 02/21/18 No taking Wellbutrin. Continuing to cut back. SW 12/27/17-Smoking 5-6 CPD, wants to quit and planning to start back on Wellbutrin. Advised cessation and reviewed risks to self and baby. Conchita Zarco APRN.CNM 09/28/2017 Pt smokes 1/2 pack a day of cigarettes. Discussed risks of smoking during . Advised pt to quit.TKRN Patient requested diagnostic testing 09/28/2017 03/07/2018 Overview: 09/28/2017 Patient desires nuchal ultrasound and CF carrier screening testing. TKRN Acute appendicitis without mention of peritoniti s 07/18/2014 03/07/2018 Dizzy spells 05/13/2014 03/21/2018 VANNA (obstructive sleep apnea) 03/19/2014 Shoulder pain, acute 12/19/2013 03/07/2018 Last Assessment & Plan: Fell down the steps And hurt her shoulder. Went to Er got xrays, no fractures. Sent back home but she still is having a lot of pain, she cannot lift above the shoulders, ROM is decreased. Insomnia 02/19/2013 03/21/2018 Last Assessment & Plan: The hydroxyzine is helping with her insomnia along with her melatonin. But if she takes it in the day she gets sleepy, Dry skin 10/11/2012 03/07/2018 Brittle hair 10/11/2012 03/21/2018 Thoracic back pain 10/11/2012 03/21/2018 Supervision of normal first 06/15/2007 01/11/2008 documented as of this encounter (statuses as of 03/22/2022) [facility] History of Past illness Narrative* Problem Noted Date Resolved Date Uterine size-date discrepancy in third trimester 03/07/2018 05/23/2018 Overview: 04/18/18 - BPP = 8/8, EFW = 6%ile, SULEIMAN = 7. Agnieszka Torres, JUANCARLOS.CNM March 07, 2018 EFW is 8%. HC is 1 standard deviation lower than mean. Still within range for normal and intracranial structures are normal. Weekly BPPs and growth scan in 3-4 weeks per [facility]. Leanne Rascon MD Low-lying placenta 12/29/2017 05/23/2018 Overview: 03/07- placenta not low lying. Leanne Rascon MD 02/08/18 - still low lying, needs repeat US in 4 weeks - KJ 12/29/17 - repeat US ordered - KJ Nausea/vomiting in 09/28/201708/2017 Overview: 09/28/2017 Patient is complaining of nausea and vomiting in . She states she has vomiting in the morning and nauseated all day. Approximately 7w4d . Advised patient to call/come in if she is unable to keep any food or fluids down in a 24-hour period. Patient requesting Phenergan RX. See phone note dates 09/28.TKRN Tobacco use in , antepartum 09/28/2017 05/23/2018 Overview: 02/21/18 No taking Wellbutrin. Continuing to cut back. SW 12/27/17-Smoking 5-6 CPD, wants to quit and planning to start back on Wellbutrin. Advised cessation and reviewed risks to self and baby. Conchita Zarco APRN.CNM 09/28/2017 Pt smokes 1/2 pack a day of cigarettes. Discussed risks of smoking during . Advised pt to quit.TKRN Patient requested diagnostic testing 09/28/2017 03/07/2018 Overview: 09/28/2017 Patient desires nuchal ultrasound and CF carrier screening testing. TKRN Acute appendicitis without mention of peritoniti s 07/18/2014 03/07/2018 Dizzy spells 05/13/2014 03/21/2018 VANNA (obstructive sleep apnea) 03/19/2014 Shoulder pain, acute 12/19/2013 03/07/2018 Last Assessment & Plan: Fell down the steps And hurt her shoulder. Went to Er got xrays, no fractures. Sent back home but she still is having a lot of pain, she cannot lift above the shoulders, ROM is decreased. Insomnia 02/19/2013 03/21/2018 Last Assessment & Plan: The hydroxyzine is helping with her insomnia along with her melatonin. But if she takes it in the day she gets sleepy, Dry skin 10/11/2012 03/07/2018 Brittle hair 10/11/2012 03/21/2018 Thoracic back pain 10/11/2012 03/21/2018 Supervision of normal first 06/15/2007 01/11/2008 documented as of this encounter (statuses as of 04/25/2022) [facility] History of Past illness Narrative* Problem Noted Date Resolved Date Uterine size-date discrepancy in third trimester 03/07/2018 05/23/2018 Overview: 04/18/18 - BPP = 8/8, EFW = 6%ile, SULEIMAN = 7. Agnieszka Torres APRN.CNM March 07, 2018 EFW is 8%. HC is 1 standard deviation lower than mean. Still within range for normal and intracranial structures are normal. Weekly BPPs and growth scan in 3-4 weeks per [facility]. Leanne Rascon MD Low-lying placenta 12/29/2017 05/23/2018 Overview: 03/07- placenta not low lying. Leanne Rascon MD 02/08/18 - still low lying, needs repeat US in 4 weeks - KJ 12/29/17 - repeat US ordered - KJ Nausea/vomiting in 09/28/201708/2017 Overview: 09/28/2017 Patient is complaining of nausea and vomiting in . She states she has vomiting in the morning and nauseated all day. Approximately 7w4d . Advised patient to call/come in if she is unable to keep any food or fluids down in a 24-hour period. Patient requesting Phenergan RX. See phone note dates 09/28.TKRN Tobacco use in , antepartum 09/28/2017 05/23/2018 Overview: 02/21/18 No taking Wellbutrin. Continuing to cut back. SW 12/27/17-Smoking 5-6 CPD, wants to quit and planning to start back on Wellbutrin. Advised cessation and reviewed risks to self and baby. Conchita Zarco APRN.CNM 09/28/2017 Pt smokes 1/2 pack a day of cigarettes. Discussed risks of smoking during . Advised pt to quit.TKRN Patient requested diagnostic testing 09/28/2017 03/07/2018 Overview: 09/28/2017 Patient desires nuchal ultrasound and CF carrier screening testing. TKRN Acute appendicitis without mention of peritoniti s 07/18/2014 03/07/2018 Dizzy spells 05/13/2014 03/21/2018 VANNA (obstructive sleep apnea) 03/19/2014 Shoulder pain, acute 12/19/2013 03/07/2018 Last Assessment & Plan: Fell down the steps And hurt her shoulder. Went to Er got xrays, no fractures. Sent back home but she still is having a lot of pain, she cannot lift above the shoulders, ROM is decreased. Insomnia 02/19/2013 03/21/2018 Last Assessment & Plan: The hydroxyzine is helping with her insomnia along with her melatonin. But if she takes it in the day she gets sleepy, Dry skin 10/11/2012 03/07/2018 Brittle hair 10/11/2012 03/21/2018 Thoracic back pain 10/11/2012 03/21/2018 Supervision of normal first 06/15/2007 01/11/2008 documented as of this encounter (statuses as of 07/06/2022) [facility] History of Past illness Narrative* Problem Noted Date Resolved Date Uterine size-date discrepancy in third trimester 03/07/2018 05/23/2018 Overview: 04/18/18 - BPP = 8/8, EFW = 6%ile, SULEIMAN = 7. Agnieszka Torres APRN.CNM March 07, 2018 EFW is 8%. HC is 1 standard deviation lower than mean. Still within range for normal and intracranial structures are normal. Weekly BPPs and growth scan in 3-4 weeks per [facility]. Leanne Rascon MD Low-lying placenta 12/29/2017 05/23/2018 Overview: 03/07- placenta not low lying. Leanne Rascon MD 02/08/18 - still low lying, needs repeat US in 4 weeks - KJ 12/29/17 - repeat US ordered - KJ Nausea/vomiting in 09/28/201708/2017 Overview: 09/28/2017 Patient is complaining of nausea and vomiting in . She states she has vomiting in the morning and nauseated all day. Approximately 7w4d . Advised patient to call/come in if she is unable to keep any food or fluids down in a 24-hour period. Patient requesting Phenergan RX. See phone note dates 09/28.TKRN Tobacco use in , antepartum 09/28/2017 05/23/2018 Overview: 02/21/18 No taking Wellbutrin. Continuing to cut back. SW 12/27/17-Smoking 5-6 CPD, wants to quit and planning to start back on Wellbutrin. Advised cessation and reviewed risks to self and baby. Conchita Zarco APRN.CNM 09/28/2017 Pt smokes 1/2 pack a day of cigarettes. Discussed risks of smoking during . Advised pt to quit.TKRN Patient requested diagnostic testing 09/28/2017 03/07/2018 Overview: 09/28/2017 Patient desires nuchal ultrasound and CF carrier screening testing. TKRN Acute appendicitis without mention of peritoniti s 07/18/2014 03/07/2018 Dizzy spells 05/13/2014 03/21/2018 VANNA (obstructive sleep apnea) 03/19/2014 Shoulder pain, acute 12/19/2013 03/07/2018 Last Assessment & Plan: Fell down the steps And hurt her shoulder. Went to Er got xrays, no fractures. Sent back home but she still is having a lot of pain, she cannot lift above the shoulders, ROM is decreased. Insomnia 02/19/2013 03/21/2018 Last Assessment & Plan: The hydroxyzine is helping with her insomnia along with her melatonin. But if she takes it in the day she gets sleepy, Dry skin 10/11/2012 03/07/2018 Brittle hair 10/11/2012 03/21/2018 Thoracic back pain 10/11/2012 03/21/2018 Supervision of normal first 06/15/2007 01/11/2008 documented as of this encounter (statuses as of 08/16/2022) [facility] History of Past illness Narrative* Problem Noted Date Resolved Date Uterine size-date discrepancy in third trimester 03/07/2018 05/23/2018 Overview: 04/18/18 - BPP = 8/8, EFW = 6%ile, SULEIMAN = 7. Agnieszka Torres APRN.CNM March 07, 2018 EFW is 8%. HC is 1 standard deviation lower than mean. Still within range for normal and intracranial structures are normal. Weekly BPPs and growth scan in 3-4 weeks per [facility]. Leanne Rascon MD Low-lying placenta 12/29/2017 05/23/2018 Overview: 03/07- placenta not low lying. Leanne Rascon MD 02/08/18 - still low lying, needs repeat US in 4 weeks - KJ 12/29/17 - repeat US ordered - KJ Nausea/vomiting in 09/28/201708/2017 Overview: 09/28/2017 Patient is complaining of nausea and vomiting in . She states she has vomiting in the morning and nauseated all day. Approximately 7w4d . Advised patient to call/come in if she is unable to keep any food or fluids down in a 24-hour period. Patient requesting Phenergan RX. See phone note dates 09/28.TKRN Tobacco use in , antepartum 09/28/2017 05/23/2018 Overview: 02/21/18 No taking Wellbutrin. Continuing to cut back. SW 12/27/17-Smoking 5-6 CPD, wants to quit and planning to start back on Wellbutrin. Advised cessation and reviewed risks to self and baby. Conchita Zarco APRN.CNM 09/28/2017 Pt smokes 1/2 pack a day of cigarettes. Discussed risks of smoking during . Advised pt to quit.TKRN Patient requested diagnostic testing 09/28/2017 03/07/2018 Overview: 09/28/2017 Patient desires nuchal ultrasound and CF carrier screening testing. TKRN Acute appendicitis without mention of peritoniti s 07/18/2014 03/07/2018 Dizzy spells 05/13/2014 03/21/2018 VANNA (obstructive sleep apnea) 03/19/2014 Shoulder pain, acute 12/19/2013 03/07/2018 Last Assessment & Plan: Fell down the steps And hurt her shoulder. Went to Er got xrays, no fractures. Sent back home but she still is having a lot of pain, she cannot lift above the shoulders, ROM is decreased. Insomnia 02/19/2013 03/21/2018 Last Assessment & Plan: The hydroxyzine is helping with her insomnia along with her melatonin. But if she takes it in the day she gets sleepy, Dry skin 10/11/2012 03/07/2018 Brittle hair 10/11/2012 03/21/2018 Thoracic back pain 10/11/2012 03/21/2018 Supervision of normal first 06/15/2007 01/11/2008 documented as of this encounter (statuses as of 08/17/2022) [facility] History of Past illness Narrative* Problem Noted Date Resolved Date Uterine size-date discrepancy in third trimester 03/07/2018 05/23/2018 Overview: 04/18/18 - BPP = 8/8, EFW = 6%ile, SLUEIMAN = 7. Agnieszka Torres APRN.CNM March 07, 2018 EFW is 8%. HC is 1 standard deviation lower than mean. Still within range for normal and intracranial structures are normal. Weekly BPPs and growth scan in 3-4 weeks per [facility]. Leanne Rascon MD Low-lying placenta 12/29/2017 05/23/2018 Overview: 03/07- placenta not low lying. Leanne Rascon MD 02/08/18 - still low lying, needs repeat US in 4 weeks - KJ 12/29/17 - repeat US ordered - KJ Nausea/vomiting in 09/28/201708/2017 Overview: 09/28/2017 Patient is complaining of nausea and vomiting in . She states she has vomiting in the morning and nauseated all day. Approximately 7w4d . Advised patient to call/come in if she is unable to keep any food or fluids down in a 24-hour period. Patient requesting Phenergan RX. See phone note dates 09/28.TKRN Tobacco use in , antepartum 09/28/2017 05/23/2018 Overview: 02/21/18 No taking Wellbutrin. Continuing to cut back. SW 12/27/17-Smoking 5-6 CPD, wants to quit and planning to start back on Wellbutrin. Advised cessation and reviewed risks to self and baby. Conchita Zarco APRN.CNM 09/28/2017 Pt smokes 1/2 pack a day of cigarettes. Discussed risks of smoking during . Advised pt to quit.TKRN Patient requested diagnostic testing 09/28/2017 03/07/2018 Overview: 09/28/2017 Patient desires nuchal ultrasound and CF carrier screening testing. TKRN Acute appendicitis without mention of peritoniti s 07/18/2014 03/07/2018 Dizzy spells 05/13/2014 03/21/2018 VANNA (obstructive sleep apnea) 03/19/2014 Shoulder pain, acute 12/19/2013 03/07/2018 Last Assessment & Plan: Fell down the steps And hurt her shoulder. Went to Er got xrays, no fractures. Sent back home but she still is having a lot of pain, she cannot lift above the shoulders, ROM is decreased. Insomnia 02/19/2013 03/21/2018 Last Assessment & Plan: The hydroxyzine is helping with her insomnia along with her melatonin. But if she takes it in the day she gets sleepy, Dry skin 10/11/2012 03/07/2018 Brittle hair 10/11/2012 03/21/2018 Thoracic back pain 10/11/2012 03/21/2018 Supervision of normal first 06/15/2007 01/11/2008 documented as of this encounter (statuses as of 08/17/2022) [facility] History of Past illness Narrative* Problem Noted Date Resolved Date Uterine size-date discrepancy in third trimester 03/07/2018 05/23/2018 Overview: 04/18/18 - BPP = 8/8, EFW = 6%ile, SULEIMAN = 7. Agnieszka Torres APRN.CNM March 07, 2018 EFW is 8%. HC is 1 standard deviation lower than mean. Still within range for normal and intracranial structures are normal. Weekly BPPs and growth scan in 3-4 weeks per [facility]. Leanne Rascon MD Low-lying placenta 12/29/2017 05/23/2018 Overview: 03/07- placenta not low lying. Leanne Rascon MD 02/08/18 - still low lying, needs repeat US in 4 weeks - KJ 12/29/17 - repeat US ordered - KJ Nausea/vomiting in 09/28/201708/2017 Overview: 09/28/2017 Patient is complaining of nausea and vomiting in . She states she has vomiting in the morning and nauseated all day. Approximately 7w4d . Advised patient to call/come in if she is unable to keep any food or fluids down in a 24-hour period. Patient requesting Phenergan RX. See phone note dates 09/28.TKRN Tobacco use in , antepartum 09/28/2017 05/23/2018 Overview: 02/21/18 No taking Wellbutrin. Continuing to cut back. SW 12/27/17-Smoking 5-6 CPD, wants to quit and planning to start back on Wellbutrin. Advised cessation and reviewed risks to self and baby. Conchita Zarco APRN.CNM 09/28/2017 Pt smokes 1/2 pack a day of cigarettes. Discussed risks of smoking during . Advised pt to quit.TKRN Patient requested diagnostic testing 09/28/2017 03/07/2018 Overview: 09/28/2017 Patient desires nuchal ultrasound and CF carrier screening testing. TKRN Acute appendicitis without mention of peritoniti s 07/18/2014 03/07/2018 Dizzy spells 05/13/2014 03/21/2018 VANNA (obstructive sleep apnea) 03/19/2014 Shoulder pain, acute 12/19/2013 03/07/2018 Last Assessment & Plan: Fell down the steps And hurt her shoulder. Went to Er got xrays, no fractures. Sent back home but she still is having a lot of pain, she cannot lift above the shoulders, ROM is decreased. Insomnia 02/19/2013 03/21/2018 Last Assessment & Plan: The hydroxyzine is helping with her insomnia along with her melatonin. But if she takes it in the day she gets sleepy, Dry skin 10/11/2012 03/07/2018 Brittle hair 10/11/2012 03/21/2018 Thoracic back pain 10/11/2012 03/21/2018 Supervision of normal first 06/15/2007 01/11/2008 documented as of this encounter (statuses as of 09/15/2022) [facility] History of Past illness Narrative* Problem Noted Date Resolved Date Uterine size-date discrepancy in third trimester 03/07/2018 05/23/2018 Overview: 04/18/18 - BPP = 8/8, EFW = 6%ile, SULEIMAN = 7. Agnieszka Torres APRN.CNM March 07, 2018 EFW is 8%. HC is 1 standard deviation lower than mean. Still within range for normal and intracranial structures are normal. Weekly BPPs and growth scan in 3-4 weeks per [facility]. Leanne Rascon MD Low-lying placenta 12/29/2017 05/23/2018 Overview: 03/07- placenta not low lying. Leanne Rascon MD 02/08/18 - still low lying, needs repeat US in 4 weeks - KJ 12/29/17 - repeat US ordered - KJ Nausea/vomiting in 09/28/201708/2017 Overview: 09/28/2017 Patient is complaining of nausea and vomiting in . She states she has vomiting in the morning and nauseated all day. Approximately 7w4d . Advised patient to call/come in if she is unable to keep any food or fluids down in a 24-hour period. Patient requesting Phenergan RX. See phone note dates 09/28.TKRN Tobacco use in , antepartum 09/28/2017 05/23/2018 Overview: 02/21/18 No taking Wellbutrin. Continuing to cut back. SW 12/27/17-Smoking 5-6 CPD, wants to quit and planning to start back on Wellbutrin. Advised cessation and reviewed risks to self and baby. Conchita Zarco APRN.CNM 09/28/2017 Pt smokes 1/2 pack a day of cigarettes. Discussed risks of smoking during . Advised pt to quit.TKRN Patient requested diagnostic testing 09/28/2017 03/07/2018 Overview: 09/28/2017 Patient desires nuchal ultrasound and CF carrier screening testing. TKRN Acute appendicitis without mention of peritoniti s 07/18/2014 03/07/2018 Dizzy spells 05/13/2014 03/21/2018 VANNA (obstructive sleep apnea) 03/19/2014 Shoulder pain, acute 12/19/2013 03/07/2018 Last Assessment & Plan: Fell down the steps And hurt her shoulder. Went to Er got xrays, no fractures. Sent back home but she still is having a lot of pain, she cannot lift above the shoulders, ROM is decreased. Insomnia 02/19/2013 03/21/2018 Last Assessment & Plan: The hydroxyzine is helping with her insomnia along with her melatonin. But if she takes it in the day she gets sleepy, Dry skin 10/11/2012 03/07/2018 Brittle hair 10/11/2012 03/21/2018 Thoracic back pain 10/11/2012 03/21/2018 Supervision of normal first 06/15/2007 01/11/2008 documented as of this encounter (statuses as of 10/07/2022) [facility] History of Past illness Narrative* Problem Noted Date Resolved Date Uterine size-date discrepancy in third trimester 03/07/2018 05/23/2018 Overview: 04/18/18 - BPP = 8/8, EFW = 6%ile, SULEIMAN = 7. Agnieszka Torres, JUANCARLOS.CNM March 07, 2018 EFW is 8%. HC is 1 standard deviation lower than mean. Still within range for normal and intracranial structures are normal. Weekly BPPs and growth scan in 3-4 weeks per [facility]. Leanne Rascon MD Low-lying placenta 12/29/2017 05/23/2018 Overview: 03/07- placenta not low lying. Leanne Rascon MD 02/08/18 - still low lying, needs repeat US in 4 weeks - KJ 12/29/17 - repeat US ordered - KJ Nausea/vomiting in 09/28/201708/2017 Overview: 09/28/2017 Patient is complaining of nausea and vomiting in . She states she has vomiting in the morning and nauseated all day. Approximately 7w4d . Advised patient to call/come in if she is unable to keep any food or fluids down in a 24-hour period. Patient requesting Phenergan RX. See phone note dates 09/28.TKRN Tobacco use in , antepartum 09/28/2017 05/23/2018 Overview: 02/21/18 No taking Wellbutrin. Continuing to cut back. SW 12/27/17-Smoking 5-6 CPD, wants to quit and planning to start back on Wellbutrin. Advised cessation and reviewed risks to self and baby. Conchita Zarco APRN.CNM 09/28/2017 Pt smokes 1/2 pack a day of cigarettes. Discussed risks of smoking during . Advised pt to quit.TKRN Patient requested diagnostic testing 09/28/2017 03/07/2018 Overview: 09/28/2017 Patient desires nuchal ultrasound and CF carrier screening testing. TKRN Acute appendicitis without mention of peritoniti s 07/18/2014 03/07/2018 Dizzy spells 05/13/2014 03/21/2018 VANNA (obstructive sleep apnea) 03/19/2014 Shoulder pain, acute 12/19/2013 03/07/2018 Last Assessment & Plan: Fell down the steps And hurt her shoulder. Went to Er got xrays, no fractures. Sent back home but she still is having a lot of pain, she cannot lift above the shoulders, ROM is decreased. Insomnia 02/19/2013 03/21/2018 Last Assessment & Plan: The hydroxyzine is helping with her insomnia along with her melatonin. But if she takes it in the day she gets sleepy, Dry skin 10/11/2012 03/07/2018 Brittle hair 10/11/2012 03/21/2018 Thoracic back pain 10/11/2012 03/21/2018 Supervision of normal first 06/15/2007 01/11/2008 documented as of this encounter (statuses as of 11/10/2022) [facility] History of Past illness Narrative* Problem Noted Date Resolved Date Uterine size-date discrepancy in third trimester 03/07/2018 05/23/2018 Overview: 04/18/18 - BPP = 8/8, EFW = 6%ile, SULEIMAN = 7. Agnieszka Torres APRN.CNM March 07, 2018 EFW is 8%. HC is 1 standard deviation lower than mean. Still within range for normal and intracranial structures are normal. Weekly BPPs and growth scan in 3-4 weeks per [facility]. Leanne Rascon MD Low-lying placenta 12/29/2017 05/23/2018 Overview: 03/07- placenta not low lying. Leanne Rascon MD 02/08/18 - still low lying, needs repeat US in 4 weeks - KJ 12/29/17 - repeat US ordered - KJ Nausea/vomiting in 09/28/201708/2017 Overview: 09/28/2017 Patient is complaining of nausea and vomiting in . She states she has vomiting in the morning and nauseated all day. Approximately 7w4d . Advised patient to call/come in if she is unable to keep any food or fluids down in a 24-hour period. Patient requesting Phenergan RX. See phone note dates 09/28.TKRN Tobacco use in , antepartum 09/28/2017 05/23/2018 Overview: 02/21/18 No taking Wellbutrin. Continuing to cut back. SW 12/27/17-Smoking 5-6 CPD, wants to quit and planning to start back on Wellbutrin. Advised cessation and reviewed risks to self and baby. Conchita Zarco APRN.CNM 09/28/2017 Pt smokes 1/2 pack a day of cigarettes. Discussed risks of smoking during . Advised pt to quit.TKRN Patient requested diagnostic testing 09/28/2017 03/07/2018 Overview: 09/28/2017 Patient desires nuchal ultrasound and CF carrier screening testing. TKRN Acute appendicitis without mention of peritoniti s 07/18/2014 03/07/2018 Dizzy spells 05/13/2014 03/21/2018 VANNA (obstructive sleep apnea) 03/19/2014 Shoulder pain, acute 12/19/2013 03/07/2018 Last Assessment & Plan: Fell down the steps And hurt her shoulder. Went to Er got xrays, no fractures. Sent back home but she still is having a lot of pain, she cannot lift above the shoulders, ROM is decreased. Insomnia 02/19/2013 03/21/2018 Last Assessment & Plan: The hydroxyzine is helping with her insomnia along with her melatonin. But if she takes it in the day she gets sleepy, Dry skin 10/11/2012 03/07/2018 Brittle hair 10/11/2012 03/21/2018 Thoracic back pain 10/11/2012 03/21/2018 Supervision of normal first 06/15/2007 01/11/2008 documented as of this encounter (statuses as of 11/01/2022) [facility] History of Past illness Narrative* Problem Noted Date Resolved Date Uterine size-date discrepancy in third trimester 03/07/2018 05/23/2018 Overview: 04/18/18 - BPP = 8/8, EFW = 6%ile, SULEIMAN = 7. Agnieszka Torres, CERTIFICATION TECHNICIAN.CN March 07, 2018 EFW is 8%. HC is 1 standard deviation lower than mean. Still within range for normal and intracranial structures are normal. Weekly BPPs and growth scan in 3-4 weeks per [facility]. Leanne Rascon MD Low-lying placenta 12/29/2017 05/23/2018 Overview: 03/07- placenta not low lying. Leanne Rascon MD 02/08/18 - still low lying, needs repeat US in 4 weeks - KJ 12/29/17 - repeat US ordered - KJ Nausea/vomiting in 09/28/201708/2017 Overview: 09/28/2017 Patient is complaining of nausea and vomiting in . She states she has vomiting in the morning and nauseated all day. Approximately 7w4d . Advised patient to call/come in if she is unable to keep any food or fluids down in a 24-hour period. Patient requesting Phenergan RX. See phone note dates 09/28.TKRN Tobacco use in , antepartum 09/28/2017 05/23/2018 Overview: 02/21/18 No taking Wellbutrin. Continuing to cut back. SW 12/27/17-Smoking 5-6 CPD, wants to quit and planning to start back on Wellbutrin. Advised cessation and reviewed risks to self and baby. Conchita Zarco APRN.CNM 09/28/2017 Pt smokes 1/2 pack a day of cigarettes. Discussed risks of smoking during . Advised pt to quit.TKRN Patient requested diagnostic testing 09/28/2017 03/07/2018 Overview: 09/28/2017 Patient desires nuchal ultrasound and CF carrier screening testing. TKRN Acute appendicitis without mention of peritoniti s 07/18/2014 03/07/2018 Dizzy spells 05/13/2014 03/21/2018 VANNA (obstructive sleep apnea) 03/19/2014 Shoulder pain, acute 12/19/2013 03/07/2018 Last Assessment & Plan: Fell down the steps And hurt her shoulder. Went to Er got xrays, no fractures. Sent back home but she still is having a lot of pain, she cannot lift above the shoulders, ROM is decreased. Insomnia 02/19/2013 03/21/2018 Last Assessment & Plan: The hydroxyzine is helping with her insomnia along with her melatonin. But if she takes it in the day she gets sleepy, Dry skin 10/11/2012 03/07/2018 Brittle hair 10/11/2012 03/21/2018 Thoracic back pain 10/11/2012 03/21/2018 Supervision of normal first 06/15/2007 01/11/2008 documented as of this encounter (statuses as of 11/17/2022) [facility] History of Past illness Narrative* Problem Noted Date Diagnosed Date Resolved Date Uterine size-date discrepanc y in third trimester 03/07/2018 05/23/2018 Overview: 04/18/18 - BPP = 8/8, EFW = 6%ile, SULEIMAN = 7. Agnieszka Torres APRN.CNM March 07, 2018 EFW is 8%. HC is 1 standard deviation lower than mean. Still within range for normal and intracranial structures are normal. Weekly BPPs and growth scan in 3-4 weeks per [facility]. Leanne Rascon MD Low-lying placenta 12/29/2017 8 Overview: 03/07- placenta not low lying. Leanne Rascon MD 02/08/18 - still low lying, needs repeat US in 4 weeks - KJ 12/29/17 - repeat US ordered - KJ Nausea/vomiting in 09/28/2017 03/07/2018 Overview: 09/28/2017 Patient is complaining of nausea and vomiting in . She states she has vomiting in the morning and nauseated all day. Approximately 7w4d . Advised patient to call/come in if she is unable to keep any food or fluids down in a 24-hour period. Patient requesting Phenergan RX. See phone note dates 09/28.TKRN Tobacco use in , antepartum 09/28/2017 05/23/2018 Overview: 02/21/18 No taking Wellbutrin. Continuing to cut back. SW 12/27/17-Smoking 5-6 CPD, wants to quit and planning to start back on Wellbutrin. Advised cessation and reviewed risks to self and baby. Conchita Zarco APRN.CNM 09/28/2017 Pt smokes 1/2 pack a day of cigarettes. Discussed risks of smoking during . Advised pt to quit.TKRN Patient requested diagnostic testing 09/28/2017 03/07/2018 Overview: 09/28/2017 Patient desires nuchal ultrasound and CF carrier screening testing. TKRN Acute appendicitis without m ention of peritonitis 07/18/2014 03/07/2018 Dizzy spells 05/13/2014 03/21/2018 VANNA (obstructive sleep apnea) 03/19/2014 05/13/2014 Shoulder pain, acute 12/19/2013 018 Last Assessment & Plan: Fell down the steps And hurt her shoulder. Went to Er got xrays, no fractures. Sent back home but she still is having a lot of pain, she cannot lift above the shoulders, ROM is decreased. Insomnia 02/19/2013 03/21/2018 Last Assessment & Plan: The hydroxyzine is helping with her insomnia along with her melatonin. But if she takes it in the day she gets sleepy, Dry skin 10/11/2012 03/07/2018 Brittle hair 10/11/2012 03/21/2018 Thoracic back pain 10/11/2012 8 Supervision of normal first 06/15/2007 01/11/2008 documented as of this encounter (statuses as of 12/14/2022) [facility] History of Past illness Narrative* Problem Noted Date Diagnosed Date Resolved Date Uterine size-date discrepanc y in third trimester 03/07/2018 05/23/2018 Overview: 04/18/18 - BPP = 8/8, EFW = 6%ile, SULEIMAN = 7. Agnieszka Torres, CERTIFICATION TECHNICIAN.CNM March 07, 2018 EFW is 8%. HC is 1 standard deviation lower than mean. Still within range for normal and intracranial structures are normal. Weekly BPPs and growth scan in 3-4 weeks per [facility]. Leanne Rascon MD Low-lying placenta 12/29/2017 8 Overview: 03/07- placenta not low lying. Leanne Rascon MD 02/08/18 - still low lying, needs repeat US in 4 weeks - KJ 12/29/17 - repeat US ordered - KJ Nausea/vomiting in 09/28/2017 03/07/2018 Overview: 09/28/2017 Patient is complaining of nausea and vomiting in . She states she has vomiting in the morning and nauseated all day. Approximately 7w4d . Advised patient to call/come in if she is unable to keep any food or fluids down in a 24-hour period. Patient requesting Phenergan RX. See phone note dates 09/28.TKRN Tobacco use in , antepartum 09/28/2017 05/23/2018 Overview: 02/21/18 No taking Wellbutrin. Continuing to cut back. SW 12/27/17-Smoking 5-6 CPD, wants to quit and planning to start back on Wellbutrin. Advised cessation and reviewed risks to self and baby. Conchita Zarco APRN.CNM 09/28/2017 Pt smokes 1/2 pack a day of cigarettes. Discussed risks of smoking during . Advised pt to quit.TKRN Patient requested diagnostic testing 09/28/2017 03/07/2018 Overview: 09/28/2017 Patient desires nuchal ultrasound and CF carrier screening testing. TKRN Acute appendicitis without m ention of peritonitis 07/18/2014 03/07/2018 Dizzy spells 05/13/2014 03/21/2018 VANNA (obstructive sleep apnea) 03/19/2014 05/13/2014 Shoulder pain, acute 12/19/2013 018 Last Assessment & Plan: Fell down the steps And hurt her shoulder. Went to Er got xrays, no fractures. Sent back home but she still is having a lot of pain, she cannot lift above the shoulders, ROM is decreased. Insomnia 02/19/2013 03/21/2018 Last Assessment & Plan: The hydroxyzine is helping with her insomnia along with her melatonin. But if she takes it in the day she gets sleepy, Dry skin 10/11/2012 03/07/2018 Brittle hair 10/11/2012 03/21/2018 Thoracic back pain 10/11/2012 8 Supervision of normal first 06/15/2007 01/11/2008 documented as of this encounter (statuses as of 12/23/2022) [facility] History of Past illness Narrative* Problem Noted Date Diagnosed Date Resolved Date Uterine size-date discrepanc y in third trimester 03/07/2018 05/23/2018 Overview: 04/18/18 - BPP = 8/8, EFW = 6%ile, SULEIMAN = 7. Agnieszka Torres APRN.CNM March 07, 2018 EFW is 8%. HC is 1 standard deviation lower than mean. Still within range for normal and intracranial structures are normal. Weekly BPPs and growth scan in 3-4 weeks per [facility]. Leanne Rascon MD Low-lying placenta 12/29/2017 8 Overview: 03/07- placenta not low lying. Leanne Rascon MD 02/08/18 - still low lying, needs repeat US in 4 weeks - KJ 12/29/17 - repeat US ordered - KJ Nausea/vomiting in 09/28/2017 03/07/2018 Overview: 09/28/2017 Patient is complaining of nausea and vomiting in . She states she has vomiting in the morning and nauseated all day. Approximately 7w4d . Advised patient to call/come in if she is unable to keep any food or fluids down in a 24-hour period. Patient requesting Phenergan RX. See phone note dates 09/28.TKRN Tobacco use in , antepartum 09/28/2017 05/23/2018 Overview: 02/21/18 No taking Wellbutrin. Continuing to cut back. SW 12/27/17-Smoking 5-6 CPD, wants to quit and planning to start back on Wellbutrin. Advised cessation and reviewed risks to self and baby. Conchita Zarco APRN.CNM 09/28/2017 Pt smokes 1/2 pack a day of cigarettes. Discussed risks of smoking during . Advised pt to quit.TKRN Patient requested diagnostic testing 09/28/2017 03/07/2018 Overview: 09/28/2017 Patient desires nuchal ultrasound and CF carrier screening testing. TKRN Acute appendicitis without m ention of peritonitis 07/18/2014 03/07/2018 Dizzy spells 05/13/2014 03/21/2018 VANNA (obstructive sleep apnea) 03/19/2014 05/13/2014 Shoulder pain, acute 12/19/2013 018 Last Assessment & Plan: Fell down the steps And hurt her shoulder. Went to Er got xrays, no fractures. Sent back home but she still is having a lot of pain, she cannot lift above the shoulders, ROM is decreased. Insomnia 02/19/2013 03/21/2018 Last Assessment & Plan: The hydroxyzine is helping with her insomnia along with her melatonin. But if she takes it in the day she gets sleepy, Dry skin 10/11/2012 03/07/2018 Brittle hair 10/11/2012 03/21/2018 Thoracic back pain 10/11/2012 8 Supervision of normal first 06/15/2007 01/11/2008 documented as of this encounter (statuses as of 02/24/2023) [facility] Diagnosis Depression with anxiety Dysthymic disorder EMILIANO (generalized anxiety disorder) Generalized anxiety disorder documented [facility] this encounter [facility] Diagnosis Depression with anxiety Dysthymic disorder EMILIANO (generalized anxiety disorder) Generalized anxiety disorder [facility] Acute cough- Primary [facility] Diagnosis EMILIANO (generalized anxiety disorder)- Primary Generalized anxiety disorder Depression with anxiety Dysthymic disorder Restless legs Restless legs syndrome (RLS) URI with cough and congestion Adjustment insomnia Transient disorder of initiating or maintaining sleep Menstrual periods irregular Irregular menstrual cycle Daily headache Headache Chronic wrist pain, right De Quervain's disease (radial styloid tenosynovitis) Radial styloid tenosynovitis Neck pain Cervicalgia [facility] Depression with anxiety- Primary Dysthymic disorder EMILIANO (generalized anxiety disorder) Generalized anxiety disorder Adjustment insomnia Transient disorder of initiating or maintaining sleep [facility] Diagnosis Acquired hypothyroidism- Primary Unspecified hypothyroidism documented in this encounter [facility] note* Diagnosis Strep throat- Primary Streptococcal sore throat Sore throat Acute pharyngitis URI, acute Acute upper respiratory infections of unspecified site documented in this encounter [facility] note* Diagnosis Medication monitoring encounter- Primary Encounter for therapeutic drug monitoring documented in this encounter [facility] note* Diagnosis Depression with anxiety Dysthymic disorder EMILIANO (generalized anxiety disorder) Generalized anxiety disorder documented in this encounter [facility] note* Diagnosis Depression with anxiety Dysthymic disorder EMILIANO (generalized anxiety disorder) Generalized anxiety disorder documented in this encounter [facility] Reason for Referral Specialty Diagnoses / Procedures Referred By Du monte Referred To Contact Merlyn Castrejon APRN.[facility] [address] [place] [address] Referral ID Status Reason Start Date Expiration Date Visits Re quested Visits Authorized [id number] Closed 1 1 Specialty Diagnoses / Procedures Referred By Contac t Referred To Contact Orthopedics Diagnoses Chronic wrist pain, right De Quervain's disease (radial styloid tenosynovitis) Procedures CONSULT TO ORTHOPAEDICS OFFICE/OUTPATIENT [facility] 60-74 MINUTES Riddhi Snow MD [address] [address] Referral ID Status Reason Start Date Expiration Date Visits Requested Visits Authorized [id number] Authorized PCP Requested Referral 2 04/25/2023 1 1 Specialty Diagnoses / Procedures Referred By Contac t Referred To Contact XR IMAGING Diagnoses Chronic wrist pain, right Procedures XR WRIST GENERAL 3V PA/LAT/OBL RIGHT RADEX WRIST COMPLETE MINIMUM 3 VIEWS Riddhi Snow MD [address] [place] [address] Xr Imaging Referral ID Status Reason Start Date Expiration Date Visits Requested Visits Authorized [id number] Pending Review Auto-Generat ed Referral 2 05/25/2023 1 1 Specialty Diagnoses / Procedures Referred By Contac t Referred To Contact XR IMAGING Diagnoses Daily headache Neck pain Procedures XR CERV OTHER 4V AP/LAT/OBL RADEX SPINE CERVICAL 4 OR 5 VIEWS Riddhi Snow MD [address] [address] Xr Imaging Referral ID Status Reason Start Date Expiration Date Visits Requested Visits Authorized [id number] Pending Review Auto-Generat ed Referral 2 05/25/2023 1 1 Health Concerns Infection Onset Date Last Indicated Resolved Time COVID-19 Rule-Out 03/22/2022 03/22/2022 Summary Purpose Family History No Family History Records Found Advance Directives No Advanced Directives Records Found Additional Source Comments Source Comments (unrecognize d section and content) In the event this informatio n is protected by the Federal Confidentiality of Alcohol and Drug Abuse Patient Records regulations: The Federal rules restrict any use of the information to criminally investigate or prosecute any alcohol or drug abuse patient.[facility] the event this information is protected by the Federal Confidentiality of Alcohol and Drug Abuse Patient Records regulations: The Federal rules restrict any use of the information to criminally investigate or prosecute any alcohol or drug abuse patient.[facility] the event this information is protected by the Federal Confidentiality of Alcohol and Drug Abuse Patient Records regulations: The Federal rules restrict any use of the information to criminally investigate or prosecute any alcohol or drug abuse patient.[facility] the event this information is protected by the Federal Confidentiality of Alcohol and Drug Abuse Patient Records regulations: The Federal rules restrict any use of the information to criminally investigate or prosecute any alcohol or drug abuse patient.[facility] ShawIn the event this information is protected by the Federal Confidentiality of Alcohol and Drug Abuse Patient Records regulations: The Federal rules restrict any use of the information to criminally investigate or prosecute any alcohol or drug abuse patient.[facility] ShawIn the event this information is protected by the Federal Confidentiality of Alcohol and Drug Abuse Patient Records regulations: The Federal rules restrict any use of the information to criminally investigate or prosecute any alcohol or drug abuse patient.[facility] ShawIn the event this information is protected by the Federal Confidentiality of Alcohol and Drug Abuse Patient Records regulations: The Federal rules restrict any use of the information to criminally investigate or prosecute any alcohol or drug abuse patient.[facility] ShawIn the event this information is protected by the Federal Confidentiality of Alcohol and Drug Abuse Patient Records regulations: The Federal rules restrict any use of the information to criminally investigate or prosecute any alcohol or drug abuse patient.[facility] ShawIn the event this information is protected by the Federal Confidentiality of Alcohol and Drug Abuse Patient Records regulations: The Federal rules restrict any use of the information to criminally investigate or prosecute any alcohol or drug abuse patient.[facility] ShawIn the event this information is protected by the Federal Confidentiality of Alcohol and Drug Abuse Patient Records regulations: The Federal rules restrict any use of the information to criminally investigate or prosecute any alcohol or drug abuse patient.[facility] ShawIn the event this information is protected by the Federal Confidentiality of Alcohol and Drug Abuse Patient Records regulations: The Federal rules restrict any use of the information to criminally investigate or prosecute any alcohol or drug abuse patient.[facility] ShawIn the event this information is protected by the Federal Confidentiality of Alcohol and Drug Abuse Patient Records regulations: The Federal rules restrict any use of the information to criminally investigate or prosecute any alcohol or drug abuse patient.[facility] ShawIn the event this information is protected by the Federal Confidentiality of Alcohol and Drug Abuse Patient Records regulations: The Federal rules restrict any use of the information to criminally investigate or prosecute any alcohol or drug abuse patient.[facility] ShawIn the event this information is protected by the Federal Confidentiality of Alcohol and Drug Abuse Patient Records regulations: The Federal rules restrict any use of the information to criminally investigate or prosecute any alcohol or drug abuse patient.[facility] ShawIn the event this information is protected by the Federal Confidentiality of Alcohol and Drug Abuse Patient Records regulations: The Federal rules restrict any use of the information to criminally investigate or prosecute any alcohol or drug abuse patient.[facility] ShawIn the event this information is protected by the Federal Confidentiality of Alcohol and Drug Abuse Patient Records regulations: The Federal rules restrict any use of the information to criminally investigate or prosecute any alcohol or drug abuse patient.[facility] ShawIn the event this information is protected by the Federal Confidentiality of Alcohol and Drug Abuse Patient Records regulations: The Federal rules restrict any use of the information to criminally investigate or prosecute any alcohol or drug abuse patient.[facility] ShawIn the event this information is protected by the Federal Confidentiality of Alcohol and Drug Abuse Patient Records regulations: The Federal rules restrict any use of the information to criminally investigate or prosecute any alcohol or drug abuse patient.[facility] ShawIn the event this information is protected by the Federal Confidentiality of Alcohol and Drug Abuse Patient Records regulations: The Federal rules restrict any use of the information to criminally investigate or prosecute any alcohol or drug abuse patient.[facility] Reason for Visit ([facility] ed section and content) Reason Onset Date Comments Refill Request 02/05/2022 Reason Comments Cough Throat pain, nasal c ongestion x3 wks. Reason Comments medication and overall health Reason Comments Sleep Problem Reason Onset Date Comments Refill Request 08/15/2022 Reason Comments Pain, Throat Pt reported throat p ain, fever, cough x3 days. Reason Onset Date Comments Refill Request 11/17/2022 Reason Comments Received Outside Medical Records [facility] ED 12/13/22 Care Teams (unrecognized sec tion and content) Neuropsychology Medical Consultant Relationship Specialty Start Date End Date Riddhi Snow MD [address] [place], [place] [id number] PCP - General Family Practice 10/27/20 Neuropsychology Medical Consultant Relationship Specialty Start Date End Date Riddhi Snow MD [address] [place], [place] [id number] PCP - General Family Practice 10/27/20 Neuropsychology Medical Consultant Relationship Specialty Start Date End Date Riddhi Snow MD [address] [place], [place] [id number] PCP - General Family Medicine 10/27/20 Neuropsychology Medical Consultant Relationship Specialty Start Date End Date Riddhi Snow MD [address] [place], [place] [phone] PCP - General Family Medicine 10/27/20 Neuropsychology Medical Consultant Relationship Specialty Start Date End Date Riddhi Snow MD [address] [address] PCP - General Family Medicine 10/27/20 Neuropsychology Medical Consultant Relationship Specialty Start Date End Date Riddhi Snow MD [address] [address] PCP - General Family Medicine 10/27/20 Neuropsychology Medical Consultant Relationship Specialty Start Date End Date Riddhi Snow MD [address] [address] PCP - General Family Medicine 10/27/20 Neuropsychology Medical Consultant Relationship Specialty Start Date End Date Riddhi Snow MD [address] [address] PCP - General Family Medicine 10/27/20 Neuropsychology Medical Consultant Relationship Specialty Start Date End Date Riddhi Snow MD [address] [address] PCP - General Family Medicine 10/27/20 Neuropsychology Medical Consultant Relationship Specialty Start Date End Date Riddhi Snow MD [address] [address] PCP - General Family Medicine 10/27/20 Neuropsychology Medical Consultant Relationship Specialty Start Date End Date Riddhi Snow MD [address] [address] PCP - General Family Medicine 10/27/20 Neuropsychology Medical Consultant Relationship Specialty Start Date End Date Riddhi Snow MD [address] [address] PCP - General Family Medicine 10/27/20 Neuropsychology Medical Consultant Relationship Specialty Start Date End Date Riddhi Snow MD [address] [address] PCP - General Family Medicine 10/27/20 Neuropsychology Medical Consultant Relationship Specialty Start Date End Date Riddhi Snow MD [address] [place], [place] [id number] PCP - General Family Medicine 10/27/20 Neuropsychology Medical Consultant Relationship Specialty Start Date End Date Riddhi Snow MD [address] [place], [place] [id number] PCP - General Family Medicine 10/27/20 Neuropsychology Medical Consultant Relationship Specialty Start Date End Date Riddhi Snow MD [address] [place], [place] [phone] PCP - General Family Medicine 10/27/20 INFORMATION SOURCE (unrecogn ized section and content) FOR RECORDS PERTAINING TO PATIENTS WHO ARE OR HAVE BEEN ENROLLED IN A CHEMICAL DEPENDENCY/SUBSTANCEABUSE PROGRAM, SOME INFORMATION MAY BE OMITTED. This clinical summary was aggregated from multiple sources. Caution should be exercised in using it in the provision of clinical care. This summary normalizes information from multiple sources, and as a consequence, information in this document may materially change the coding, format and clinical context of patient data. In addition, data may be omitted in some cases. CLINICAL DECISIONS SHOULD BE BASED ON THE PRIMARY CLINICAL RECORDS. [facility] [employer] [facility]. provides no warranty or guarantee of the accuracy or completeness of information in this document.
== END 2023-06-11 17:54 | disposition home or self-care (01) ==
LOC: ED 16:06
PROVIDERS: Emergency Provider Emergency Medicine; PCP Family Medicine; Visit Provider Emergency Medicine
DX: A08.4 Viral intestinal infection, unspecified (principal); F17.210 Nicotine dependence, cigarettes, uncomplicated; R42 Dizziness and giddiness; Z90.49 Acquired absence of other specified parts of digestive tract; R11.2 Nausea with vomiting, unspecified; R19.7 Diarrhea, unspecified; R50.9 Fever, unspecified
CPT/HCPCS: 87631; 96361; 96374; 96375; 99283; J7030; A4216; J2405

== ENCOUNTER 2023-07-05 17:51 | Emergency (ER) | payer MEDICAID, SELFPAY ==
[2023-07-05 17:52] VITALS: BP 147/118; PULSE 69; RESP 18; TEMP 35.7; O2SAT 96; BMI 29.9
--- NOTE | 2023-07-05 19:29 | EDS_ITS ---
HPI History of Present Illness Chief Complaint: Dental Detail of Chief Complaint: Left upper and lower dental pain for 2 months. Informant: patient Onset/Context/Timing Onset: Month(s) Context: Gradual Onset Timing: Continuous Current Severity: Moderate Relieved by: NSAIDs Associated Symptoms Assocated Symptom - Dental: cold sensitivity and hot sensitivity; Negative for fever Narrative Narrative: 33-year-old female history of prior drug abuse on Suboxone. States she has had upper and lower left jaw pain intermittent for 2 months progressively getting worse. No fever. No significant swelling. No trauma. She has appointment to see her dentist but has not for several more weeks. Prior similar symptoms: Yes Recent Illness/Hospitalization: No PFSH PFSH Home Medications omeprazole 20 mg tablet,delayed release 20 mg PO heartburn 05/06/18 [History Last Taken 05/05/18 21:00 20 mg] vit 122-ferrous fumarate 27 mg iron-folic acid 800 mcg tablet ( Multi) 1 ea PO 05/06/18 [History Last Taken 05/05/18 21:00 1 tab] Ibuprofen [Motrin] 800 mg PO TID PRN PRN Pain #60 tabs 05/07/18 [Rx Last Taken Unknown] penicillin V potassium 500 mg tablet 500 mg PO 4X/DAY #39 tabs 05/08/23 [Rx Last Taken Unknown] ondansetron 4 mg disintegrating tablet 4 mg PO Q6H PRN nausea and vomiting #7 tabs 06/11/23 [Rx Last Taken Unknown] penicillin V potassium 500 mg tablet 500 mg PO 4X/DAY 10 days #40 tabs 07/05/23 [Rx Last Taken Unknown] Allergy/AdvReac Type Severity Reaction Status Date / Time No Known Allergies Allergy Verified 07/05/23 17:51 Social History Smoking Status: Current every day smoker tobacco type: cigarettes ROS ROS ED ROS Narrative Dental and jaw pain. No fever. No recent illness. Review of Systems ROS Unobtainable: Denies due to encephalopathy Constitutional Constitutional ED: Denies chills or fever(s) Eyes Eyes: Denies blurry vision ENT ENT ED: Denies ear pain Cardiovascular Cardiovascular: Denies chest pain Respiratory/Chest Respiratory/Chest: Denies cough or dyspnea Gastrointestinal Gastrointestinal: Denies abdominal pain Genitourinary Genitourinary ED: Denies dysuria or hematuria Musculoskeletal Musculoskeletal: Denies arthralgias Integumentary Denies abscess Neurologic Neurologic: Denies headache(s) Psychiatric Psychiatric: Denies anxiety or depression Endocrine Endocrinology: Denies cold intolerance Hematologic/Lymphatic Hematologic/Lymphatic: Denies easy bleeding, easy bruising or lymphadenopathy Allergic/Immunologic Allergic/Immunologic ED: Denies mouth swelling, tongue swelling or urticaria EXAM Physical Exam Narrative Exam Narrative: 33-year-old female no acute distress. Vital signs stable afebrile. Blood pressure is elevated 147 118 I suspect secondary to pain in her jaw. I am evaluating her in triage room 2 due to volume and acuity at this time. H EENT exam no facial swelling. Both upper and lower teeth primarily on the left but also on the right she has multiple cavities, decaying teeth and fractures. There is some gingival swelling but no obvious abscess. No Beka's angina. No trouble swallowing or breathing. No facial swelling. Posterior pharynx unremarkable. Neck nontender no lymphadenopathy. Lungs clear. Heart regular rhythm no murmur. Rate about 70. Abdomen soft. Otherwise exam unremarkable. Const Vital Signs: 07/05/23 17:52 Temperature 96.3 F L Temperature Source Temporal Pulse Rate 69 Respiratory Rate 18 Blood Pressure 147/118 H Blood Pressure Mean 127 Pulse Ox 96 Oxygen Delivery Method Room Air Positive well nourished and well developed; Negative for obese, cachectic, contractures or unkempt General Appearance ED: well developed and NAD; Negative for unkempt, cachectic, contractures or pallor Nutritional Appearance: Negative for cachectic or obese HEENT HEENT Narrative: Left upper and lower dental tenderness. Dental decay. Dental fractures. Dental cavities. Gingival swelling no obvious abscess. No trismus. No Beka's angina. Posterior pharynx normal. No trouble breathing or swallowing. tenderness; Negative for trauma Face and Sinus: Negative for sinuses nontender Mouth ED: Yes lips normal, Yes tongue normal, Yes salivary gland normal and No mouth trauma Mouth: lips normal, tongue normal, salivary gland normal and No mouth trauma Teeth and Gingiva: abnormal tooth and associated gingiva, caries, gingiva abnormal, poor dentition and teeth discoloration Throat: posterior oropharynx normal Eyes PERRL and EOMs intact bilaterally General Eye ED: Negative for pale conjunctiva or scleral icterus Neck no lymphadenopathy, supple and no JVD General: Negative for normal visual inspection Lymph Lymphatic: no lymphadenopathy noted; Negative for lymphadenopathy Chest Wall inspection of chest normal and palpation of chest normal Resp normal respiratory effort, no retractions and clear to auscultation bilaterally Effort and Inspection: Negative for other Cardio regular rate, regular rhythm, S1 normal heart sound, S2 normal heart sound and no murmurs Jugular Venous Distention: Negative for other Palpation: Negative for palpable S3 Rate: Negative for bradycardia Rhythm: Negative for abnormal rhythm GI normal to inspection, nondistended, normoactive bowel sounds, non-tender, non- distended and no masses Inspection: Negative for other Palpation: soft Bladder / Kidney Exam: No other Back/Spine no CVA tenderness General Back: Negative for CVA tenderness Thoracic Spine / Upper Back: Negative for thoracic spinal tenderness Extremity normal to inspection and no joint enlargement General Extremety ED: Negative for edema General Extremity: Negative for edema Neuro oriented x3, CN's II-XII intact bilaterally, moves all extremities and no focal motor deficits Sensorium / Orientation: alert, oriented to person, oriented to place and oriented to time; Negative for orientation impaired Motor Exam: strength 5/5 throughout Psych mental status grossly normal Appearance: Negative for unkempt Attitude: No agitated and No other Mood & Affect: Negative for depressed, anxious or tearful Skin no rashes or lesions noted and no wounds General Skin Exam: Negative for pallor MDM MDM MDM Narrative Medical decision making narrative: 33-year-old female with upper and lower dental cavities, gingival swelling and dental decay. She was placed on Pen-Vee K. Prior history of addiction does not want any narcotic pain meds Was not plan on prescribing this. She will continue Motrin and Tylenol. Follow-up with her dentist soon as possible. History & Record Review Discussion w/independent historian: Patient Additional record(s) reviewed:: Prior outpatient record, Prior ED visit and Prior labs Discharge Plan Triage Chief Complaint: Dental ED Provider: Juanjo Small Dx/Rx/DC Orders Clinical Impression: Dental cavity, Pain, dental Instructions: ED Dental Pain, ED Dental Cavity Prescriptions: New penicillin V potassium 500 mg tablet 500 mg PO 4X/DAY 10 Days Qty: 40 0RF No Action omeprazole 20 MG tablet,delayed release (DR/EC) 20 mg PO [id number] [ Multi] 1 EACH tablet 1 ea PO Ibuprofen [Motrin] 800 MG tablet 800 mg PO TID PRN PRN (Reason: Pain) Qty: 60 1RF penicillin V potassium 500 mg tablet 500 mg PO 4X/DAY Qty: 39 0RF ondansetron 4 mg tablet,disintegrating 4 mg PO Q6H PRN (Reason: nausea and vomiting) Qty: 7 0RF Primary Care Provider: Jayden Wooten Referrals: Jayden Wooten MD [Primary Care Provider] - Activity Restrictions/Additional Instructions: Call and follow-up with your dentist as soon as possible. Alternate Motrin and Tylenol for pain. Penicillin 1 pill 4 times a day for 10 days. Disposition Disposition: Home, Self Care
--- NOTE | 2023-07-05 19:37 | ED.RN ---
Dr. Small seen patient in triage room 2. While this nurse was triaging another patient, this patient walks out. This nurse tells patient that Dr. Small had ordered antibiotics for her and that this nurse would get them in just a moment, and she hurriedly walks out of department, stating no I am going somewhere that I can get numbed . Dr. Small then brings out discharge instructions, informed him that patient left and what patient had said. He states I would have numbed her if she would have asked, but she never asked .
--- OUTSIDE RECORDS SUMMARY | 2023-07-05 19:40 | XMS RPT_ITS | CCD ---
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 Name Role Phone Riddhi Snow MD Primary Care Provider [phone] RIDDHI SNOW Primary Care Unavailable RIDDHI SNOW Primary Care Unavailable SELVIN PALOMO Referring Unavailable RIDDHI SNOW Primary Care Unavailable RIDDHI SNOW Attending Unavailable Medications Current Medications Medication Drug Class(es) Dates [...] 10-07-2022 09:53-0400 Body temperature 98.91 [degF] Padmini Bullock APRN.IT SUPPORT ENGINEER Work Phone: [facility] 10-07-2022 09:53-0400 Body weight 83.73 kg Padmini Kobe VAUDEVILLE ACTOR.IT SUPPORT ENGINEER Work Phone: [facility] 10-07-2022 09:53-0400 Diastolic blood pressure 70 mm[Hg] Padmini Kobe VAUDEVILLE ACTOR.IT SUPPORT ENGINEER Work Phone: [facility] 10-07-2022 09:53-0400 Heart rate 67 /min Padmini Bullock VAUDEVILLE ACTOR.IT SUPPORT ENGINEER Work Phone: [facility] 10-07-2022 09:53-0400 Respiratory rate 20 /min Padmini King VAUDEVILLE ACTOR.IT SUPPORT ENGINEER Work Phone: [facility] 10-07-2022 09:53-0400 SaO2% (BldA) [Mass fraction] 97 % Padmini King VAUDEVILLE ACTOR.IT SUPPORT ENGINEER Work Phone: [facility] 10-07-2022 09:53-0400 Systolic blood pressure 118 mm[Hg] Padmini King VAUDEVILLE ACTOR.IT SUPPORT ENGINEER Work Phone: [facility] 04-25-2022 10:30-0500 Body height 162.6 cm Riddhi Snow MD Work Phone: [facility] 04-25-2022 10:30-0500 Body temperature 96.91 [degF] Riddhi Snow MD Work Phone: [facility] 04-25-2022 10:30-0500 Body weight 87.09 kg Riddhi Snow MD Work Phone: [facility] 04-25-2022 10:30-0500 Diastolic blood pressure 70 mm[Hg] Riddhi Snow MD Work Phone: [facility] 04-25-2022 10:30-0500 Heart rate 91 /min Riddhi Snow MD Work Phone: [facility] 04-25-2022 10:30-0500 SaO2% (BldA) [Mass fraction] 99 % Riddhi Snow MD Work Phone: [facility] 04-25-2022 10:30-0500 Systolic blood pressure 122 mm[Hg] Riddhi Snow MD Work Phone: [facility] 03-22-2022 09:08-0400 Body temperature 97.81 [degF] Merlyn Castrejon APRN.IT SUPPORT ENGINEER Work Phone: [facility] 03-22-2022 09:08-0400 Body weight 87.27 kg Merlyn Castrejon APRN.IT SUPPORT ENGINEER Work Phone: [facility] 03-22-2022 09:08-0400 Diastolic blood pressure 62 mm[Hg] Merlyn Castrejon APRN.IT SUPPORT ENGINEER Work Phone: [facility] 03-22-2022 09:08-0400 Heart rate 65 /min Merlyn Castrejon APRN.IT SUPPORT ENGINEER Work Phone: [facility] 03-22-2022 09:08-0400 Respiratory rate 16 /min Merlyn Castrejon APRN.IT SUPPORT ENGINEER Work Phone: [facility] 03-22-2022 09:08-0400 SaO2% (BldA) [Mass fraction] 97 % Merlyn Castrejon APRN.IT SUPPORT ENGINEER Work Phone: [facility] 03-22-2022 09:08-0400 Systolic blood pressure 118 mm[Hg] Merlyn Castrejon APRN.IT SUPPORT ENGINEER Work Phone: [facility] Encounters Encounter Date Encounter Type Care Provider Facility Start: 02-24-2023 Refill Spike VALENTINOIT SUPPORT ENGINEER Work Phone: Family Practice Procedures Date Procedure Procedure Detail Performing Clinician Start: 10-07-2022 STREP A MOLECULAR (POC) Merlyn Castrejon APRN.IT SUPPORT ENGINEER Work Phone: Plan of Treatment Date Care Activity Detail Author Start: 04-04-2028 Urine microalbumin profile [facility] Start: 02-03-2023 Influenza vaccination C [facility] Start: 11-10-2022 End: 01-10-2023 Hemoglobin A1c in Blood HGB A1C Lab Routine Medication monitoring encounter Expected: 11/10/2022, Expires: 01/10/2023 [facility] Work Phone: Immunizations Immunization Date Immunization Notes Care Provider Danitza hernandez 05-21-2021 Influenza, injectabl e, Madin [place] Canine Kidney, preservative free, quadrivalent Riddhi Snow MD Work Phone: [facility] 05-21-2021 influenza virus vacc ine, unspecified formulation Spikeshanthi Juan IT SUPPORT ENGINEER Work Phone: [facility] 05-08-2018 influenza, seasonal, injectable, preservative free Riddhi Snow MD Work Phone: [facility] 04-04-2018 tetanus toxoid, redu andreas diphtheria toxoid, and acellular pertussis vaccine, adsorbed Riddhi Snow MD Work Phone: [facility] Work Phone: 03-02-2016 influenza, injectabl e, quadrivalent, contains preservative Riddhi Snow MD Work Phone: [facility] Work Phone: 01-20-2014 pneumococcal polysaccharide vaccine, 23 valent Riddhi Snow MD Work Phone: [facility] Work Phone: 01-20-2014 tetanus toxoid, redu andreas diphtheria toxoid, and acellular pertussis vaccine, adsorbed Riddhi Snow MD Work Phone: [facility] Work Phone: Payers Date Payer Category Payer Medicaid [place] [employer] [employer] [id number] 2017-Present [phone] [address] Medicaid [id number] 2017 Medicaid [id number] 2017 Medicaid [id number] Social History Date Type Detail Facility Start: 04-11-2018 End: 03-22-2022 Tobacco smoking status INIS Smokes tobacco daily [facility] End: 05-10-2007 History of tobacco use Cigarette Smoker [facility] Start: 04-05-2021 End: 10-07-2022 Alcohol intake Current drinker of alcohol (finding) [facility] Start: 03-29-2020 End: 07-05-2022 History SDOH Alcohol Frequency 2 [facility] Start: 03-29-2020 End: 07-05-2022 History SDOH Alcohol Std Drinks 1 [facility] Start: 09-28-2017 History SDOH Alcohol Comment Rarely, not while [facility] Start: 03-29-2020 End: 04-25-2022 History SDOH Social Connections Phone 4 [facility] Start: 03-29-2020 End: 07-05-2022 History SDOH Social Connections Yarsani 98 [facility] Start: 02-20-2020 End: 07-05-2022 History SDOH Social Connections Living 5 [facility] Start: 02-20-2020 End: 07-05-2022 History SDOH Financial 3 [facility] Start: 02-20-2020 Education 21 [facility] Start: 04-11-2018 End: 03-22-2022 Tobacco Comment 3 cigarette a day [facility] Start: 1990 Sex Assigned At Female C [facility] Start: 04-11-2018 End: 03-22-2022 Tobacco use and exposure Smokeless tobacco non-user [facility] Work Phone: Start: 03-12-2022 End: 04-25-2022 Exposure to SARS-CoV-2 (event) Not sure [facility] Work Phone: Start: 04-25-2022 End: 07-05-2022 History SDOH Alcohol Std Drinks 0 [facility] Start: 06-17-2022 End: 07-05-2022 History of Social function [facility] Start: 06-17-2022 End: 07-05-2022 Social connection and isolation panel [facility] How often do you get together with friends or relatives? Patient refused [facility] Do you belong to any clubs or organizations such as muslim groups, unions, fraternal or athletic groups, or school groups? No [facility] Are you now , , , , never or living with a partner? [facility] How often to you hav e a drink containing alcohol? Never [facility] How hard is it for y ou to pay for the very basics like food, housing, medical care, and heating Somewhat hard [facility] Do you feel stress - tense, restless, nervous, or anxious, or unable to sleep at night because your mind is troubled all the time - these days [OSQ] Very much [facility] (I/We) worried wheravinder er (my/our) food would run out before (I/we) got money to buy more. Sometimes true [facility] The food that (I/we) bought just didn't last, and (I/we) didn't have money to get more. Never true [facility] Start: 02-20-2020 Gender identity Identifies as female gender (finding) [facility] Clinical Notes 03-07-2018 to 02-24-2023 Telephone Encounter - Paris Grace - 02/24/2023 12:38 PM EDTTelephone Encounter - Rebecca Finn APRN.CNP - 02/24/2023 12:01 PM EDTPadmini Bullock APRN.CNP - 10/07/2022 10:44 AM EDT Note Date & Type Note Facility 02-24-2023 Miscellaneous Notes Formattin g of this note might be different from the original. Called patient, and patient answer, then hung up. Will send a [employer] message Please inform patient that they are due for OV and assist in scheduling with PCP team. Thanks. Pharmacy verified in [facility] Patient has been identified by name and [...] Alexandra Almaguer LPN documented in this encounter [facility] 12-22-2022 Miscellaneous Notes Formattin g of this note is different from the original. Pharmacy verified in [facility] Patient has been identified by name and [...] Alexandra Almaguer LPN documented in this encounter [facility] 12-13-2022 Miscellaneous Notes Formattin g of this note might be different from the original. Received ED summary and xray for finger laceration from [facility]. Placed in provider's inbox for review. Route to MA scanning. documented in this encounter [facility] 11-17-2022 Miscellaneous Notes Formattin g of this note is different from the original. Pharmacy verified in [facility] Patient has been identified by name and [...] Katelynn Conti MA documented in this encounter [facility] 11-10-2022 Miscellaneous Notes Formattin g of this note might be different from the original. LM for patient to call office and sent Mychart. Patient is due for fasting labs, orders placed. Spike Juan APRN.CARLOS Pharmacy verified in [facility] Patient has been identified by name and [...] Monserrat Clements Ma documented in this encounter [facility] 11-01-2022 Miscellaneous Notes Formattin g of this note is different from the original. Pharmacy verified in [facility] Patient has been identified by name and [...] Katelynn Conti MA documented in this encounter [facility] 10-07-2022 Miscellaneous Notes Addended by: PADMINI BULLOCK on: 10/07/2022 03:33 PM Modules accepted: Orders documented in this encounter [facility] 10-07-2022 Note HNO ID: [id number] Author: Padmini Bullock APRN.IT SUPPORT ENGINEER Service: ? Author Type: Nurse Practitioner Type: Progress Notes Filed: 10/07/2022 10:46 AM Note Text: Subjective HPI HPI Carly Tian is a 32 year old female [...] SURGICAL HISTORY Procedure Laterality Date IUD INSERTION (PRINTING MECHANIST DEPT)_*FL 03/07/2008 Mirena LAPAROSCOPIC APPENDECTOMY 07/13/14 early [...] antibiotic as w (more content not included)... [facility] 10-07-2022 History of Presen t illness Narrative Subjective HPI HPI Carly Tian is a 32 year old female who presents today for CC of st, cough, fever. This started 3 days ago. Has tried otc medication for relief. Symptoms are worsened by nothing. Risk factors, no known sick exposures. Smoker. Denies possibility of being . .Patient presents with: Pain, Throat: Pt reported throat pain, fever, cough x3 days. PAST MEDICAL HISTORY Diagnosis Date Chlamydia 2012 Complication of anesthesia Dysthymic disorder Depression (non-psychotic) Encounter for insertion or removal of intrauterine contraceptive device 03/07/2008 Mirena Obstructive sleep apnea PMH - PAST MEDICAL HISTORY OF STOMACH ULCER depression S/P appendectomy 07/2014 Substance abuse (HCC) PAST SURGICAL HISTORY Procedure Laterality Date IUD INSERTION (PRINTING MECHANIST DEPT)_*FL 03/07/2008 Mirena LAPAROSCOPIC APPENDECTOMY 07/13/14 early [...] - BENZONATATE 100 MG CAPSULE Padmini Bullock APRN.IT SUPPORT ENGINEER documented in this encounter [facility] 09-14-2022 Miscellaneous Notes Formattin g of this note is different from the original. Pharmacy verified in [facility] Patient has been identified by name and [...] Alexandra Almaguer LPN documented in this encounter [facility] 08-17-2022 Miscellaneous Notes Formattin g of this note is different from the original. The following approved medication requests have been transmitted electronically. Requested Prescriptions Signed Prescriptions Disp Refills levothyroxine (LEVOXYL) 50 mcg tablet 30 tablet 5 Sig: Take 1 tablet by mouth once daily. Take on empty stomach. For Thyroid TSH ordered for early October Riddhi Snow MD documented in this encounter [facility] 08-17-2022 Miscellaneous Notes Formattin g of this note is different from the original. The following approved medication requests have been transmitted electronically. Requested Prescriptions Signed Prescriptions Disp Refills QUEtiapine (SEROQUEL) 25 mg tablet 60 tablet 2 Sig: Take 1 tablet by mouth twice daily. Riddhi Snow MD Pharmacy verified in [facility] Patient has been identified by name and [...] Alexandra Almaguer LPN documented in this encounter [facility] 08-15-2022 Miscellaneous Notes Formattin g of this note is different from the original. The following approved medication requests have been transmitted electronically. Requested Prescriptions Signed Prescriptions Disp Refills omeprazole (PRILOSEC) 20 mg capsule 30 capsule 2 Sig: Take 1 capsule by mouth daily before breakfast. 1/2 hr before meal. Authorizing Provider: SPIKE JUAN MD Pharmacy verified in [facility]. Patient has been identified by name and [...] Nina Roman MA documented in this encounter [facility] 08-15-2022 Miscellaneous Notes Formattin g of this note is different from the original. The following approved medication requests have been [...] Provider: SPIKE JUAN MD Pharmacy verified in [facility] Patient has been identified by name and [...] Monserrat Clements Ma documented in this encounter [facility] 07-05-2022 Note HNO ID: [id number] Author: Riddhi Snow MD Service: ? Author Type: Physician Type: Progress Notes Filed: 07/05/2022 5:14 PM Note Text: This Team Access Model visit is a virtual encounter. It required patient-provider interaction for the medical decision making as documented below. The patient consented to proceed by video encounter before initiating the encounter. DISTANCE HEALTH VISIT Carly Tian is a 32 year old female [...] Snow MD July 05, 2022 5:13 PM [facility] 07-05-2022 History of Presen t illness Narrative This Team Access Model visit is a virtual encounter. It required patient-provider interaction for the medical decision making as documented below. The patient consented to proceed by video encounter before initiating the encounter. DISTANCE HEALTH VISIT Carly Tian is a 32 year old female [...] 2022 5:13 PM documented in this encounter [facility] 11-21-2022 History of Presen t illness Narrative CHIEF COMPLAINT Patient presents with: medication and overall health HISTORY OF PRESENT ILLNESS Carly Tian is a 32 year old female [...] dysuria. 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 The cough seems to be lingering and not getting any better. HPI: Carly Tian is a 32 year old female who presents to the office with complaint of cough, nonproductive and sore throat for 3 weeks. Symptoms are improving Associated symptoms includes cough. Denies fever, nausea, vomiting , and diarrhea. Treatments tried include nothing so far. with no relief of symptoms. Sick contacts: unknown. History of asthma, frequent episodes of bronchitis, chronic bronchitis, bronchiectasis or COPD: No Smoker: No Seasonal/environmental allergies: No The ROS is otherwise negative. The patient's pmh, medications, allergies, and past visits are reviewed. PHYSICAL EXAM: BP 118/62 Pulse 65 Temp 36.6 C (97.8 F) Resp 16 Wt 87.3 kg (192 lb 6.4 oz) LMP 02/09/2022 (Approximate) SpO2 97% BMI 33.01 kg/m General appearance: alert, cooperative, pleasant, in no acute distress Head: Normocephalic Eyes: EOM's intact, conjunctiva pink and moist, no icterus, sclera white, non-injected Ears: Right ear: External ear/canal- Normal, TM - clear with good landmarks. Left ear: External ear/canal- Normal, TM - clear with good landmarks Oropharynx:moist without lesions, No erythema, exudates or tonsillar hypertrophy. Heart: Negative. RRR without obvious murmur, gallop, or rubs. No ectopy. Lungs: clear to auscultation, without rales or wheeze, good air exchange PAST MEDICAL HISTORY Diagnosis Date 2012 Complication of anesthesia Dysthymic disorder Depression (non-psychotic) Encounter for insertion or removal of intrauterine contraceptive device 03/07/2008 Mirena Obstructive sleep apnea PMH - PAST MEDICAL HISTORY OF STOMACH ULCER depression S/P appendectomy 07/2014 Substance abuse (HCC) PAST SURGICAL HISTORY Procedure Laterality Date IUD INSERTION (PRINTING MECHANIST DEPT)_*FL 03/07/2008 Mirena LAPAROSCOPIC APPENDECTOMY 07/13/14 early ALLERGIES Patient has no known allergies. MEDICATIONS cetirizine (ZYRTEC) 10 mg tablet Take 1 tablet by mouth once daily. amitriptyline (ELAVIL) 25 mg tablet Take 1 tablet by mouth daily at bedtime. PARoxetine (PAXIL) 30 mg tablet Take 1 tablet by mouth once daily. ibuprofen (MOTRIN) 800 mg tablet Take 1 tablet by mouth every 8 hours as needed for pain (with food.). acetaminophen 325 mg cap Take by mouth as needed. pramipexole (MIRAPEX) 0.25 mg tablet take 1 tablet by mouth at bedtime (Patient not taking: Reported on 03/22/2022) Dsycgaoptoapldk-Mquqtbgai-DK (BROMFED DM) 2-30-10 mg/5 mL syrup Take 10 mL by mouth four times daily as needed. ondansetron orally disintegrating (ZOFRAN ODT) 4 mg disintegrating tablet Take 1 tablet by mouth every 6 hours as needed for nausea/vomiting. FAMILY HISTORY Problem Relation Age of Onset [...] Last attempt to quit: 05/10/2007 Years since quittin.8 Smokeless tobacco: Never Tobacco comments: 3 cigarette a day Substance Use Topics Alcohol use: Yes Comment: Rarely, not while Drug use: No Comment: has used marijuana in past but not since 04/2007 ASSESSMENT/PLAN: 1. Acute cough - ICD9: 786.2, ICD10: R05.1 Prednisone daily for days and albuterol inhaler PRN. Prescription instructions reviewed with patient as applicable. Potential red flag symptoms discussed with the patient. Reviewed appropriate action plan to take if red flag symptoms occur. Patient agreeable to treatment plan. Merlyn Castrejon APRN.CARLOS documented in this encounter [facility] 02-08-2022 Miscellaneous Notes Formattin g of this note might be different from the original. 1st attempt left voicemail. Cecelia Meyer Due for in office visit, please schedule with either provider. Spike Juan APRN.CARLOS Pharmacy verified in [facility] Patient has been identified by name and date of : Yes Patient aware RX will be sent to pharmacy. No need to notify patient. Patient phones for refill(s): Requested Prescriptions Pending Prescriptions Disp Refills cetirizine (ZYRTEC) 10 mg tablet 30 tablet 2 Sig: Take 1 tablet by mouth once daily. amitriptyline (ELAVIL) 25 mg tablet 30 tablet 2 Sig: Take 1 tablet by mouth daily at bedtime. PARoxetine (PAXIL) 30 mg tablet 30 tablet 2 Sig: Take 1 tablet by mouth once daily. Date of last office visit : 07/07/2021 [facility] office 12/2020 Date of next office visit : Visit date not found NO SHOW 12/2021 Last 2 Encounter Wt Readings: Date: Wt: 04/05/2021 80.5 kg (177 lb 6.4 oz) 02/14/2021 77.6 kg (171 lb) Not applicable Please advise. Alexandra Almaguer LPN documented in this encounter [facility] 10-13-2021 Miscellaneous Notes [employer] message sent Patient is due for labs for medication monitoring. She can do this fasting and we'll also check her fasting blood sugar as well to screen for diabetes. Lab order placed. Spike Juan APRN.CNP Pharmacy verified in [facility]. Patient has been identified by name and date of : Yes Patient aware RX will be sent to pharmacy. No need to notify patient. Patient phones for refill(s): Pending Prescriptions Disp Refills AMITRIPTYLINE 25 MG TABLET 30 tablet 2 Sig: take 1 tablet by mouth at bedtime NICOLE: Yes PAROXETINE 30 MG TABLET 30 tablet 2 Sig: take 1 tablet by mouth once daily NICOLE: Yes Date of last office visit : 12/08/2020 Date of next office visit : Visit date not found Last 2 Encounter Wt Readings: Date: Wt: 04/05/2021 80.5 kg (177 lb 6.4 oz) 02/14/2021 77.6 kg (171 lb) Not applicable Please advise. Nina Roman MA documented in this encounter [facility] documented as of this encounter (statuses as of 09/29/2021) [facility] History of Past illness Narrative* Problem Noted [...] and growth scan in 3-4 weeks per [facility]. Leanne Rascon MD Low-lying placenta 12/29/2017 05/23/2018 [...] of this encounter (statuses as of 10/13/2021) [facility] History of Past illness Narrative* Problem Noted Date Resolved Date Uterine size-date discrepancy in third trimester 03/07/2018 05/23/2018 Overview: 04/18/18 - BPP = 8/8, EFW = 6%ile, SULEIMAN = 7. Agnieszka Torres APRN.[facility] March 07, 2018 EFW is 8%. HC is 1 standard deviation lower than mean. Still within range for normal and intracranial structures are normal. Weekly BPPs and growth scan in 3-4 weeks per [facility]. Leanne Rascon MD Low-lying placenta 12/29/2017 05/23/2018 [...] of this encounter (statuses as of 10/13/2021) [facility] History of Past illness Narrative* Problem Noted [...] and growth scan in 3-4 weeks per [facility]. Leanne Rascon MD Low-lying placenta 12/29/2017 05/23/2018 [...] of this encounter (statuses as of 02/08/2022) [facility] History of Past illness Narrative* Problem Noted [...] and growth scan in 3-4 weeks per [facility]. Leanne Rascon MD Low-lying placenta 12/29/2017 05/23/2018 [...] risks to self and baby. Conchita Zarco APRN.[facility]IMA 09/28/2017 Pt smokes 1/2 pack a day [...] of this encounter (statuses as of 03/22/2022) [facility] History of Past illness Narrative* Problem Noted [...] and growth scan in 3-4 weeks per [facility]. Leanne Rascon MD Low-lying placenta 12/29/2017 05/23/2018 [...] of this encounter (statuses as of 04/25/2022) [facility] History of Past illness Narrative* Problem Noted [...] and growth scan in 3-4 weeks per [facility]. Leanne Rascon MD Low-lying placenta 12/29/2017 05/23/2018 [...] s 07/18/2014 03/07/2018 Dizzy spells 05/13/2014 03/21/2018 VNANA (obstructive sleep apnea) 03/19/2014 Shoulder pain, acute [...] of this encounter (statuses as of 07/06/2022) [facility] History of Past illness Narrative* Problem Noted [...] and growth scan in 3-4 weeks per [facility]. Leanne Rascon MD Low-lying placenta 12/29/2017 05/23/2018 [...] of this encounter (statuses as of 08/16/2022) [facility] History of Past illness Narrative* Problem Noted [...] and growth scan in 3-4 weeks per [facility]. Leanne Rascon MD Low-lying placenta 12/29/2017 05/23/2018 [...] risks to self and baby. Conchita Zarco APRN.MARLONM 09/28/2017 Pt smokes 1/2 pack a day [...] of this encounter (statuses as of 08/17/2022) [facility] History of Past illness Narrative* Problem Noted Date Resolved Date Uterine size-date discrepancy in third trimester 03/07/2018 05/23/2018 Overview: 04/18/18 - BPP = 8/8, EFW = 6%ile, SULEIMAN = 7. Agnieszka Torres, VAUDEVILLE ACTOR.CN March 07, 2018 EFW is 8%. HC is 1 standard deviation lower than mean. Still within range for normal and intracranial structures are normal. Weekly BPPs and growth scan in 3-4 weeks per [facility]. Leanne Rascon MD Low-lying placenta 12/29/2017 05/23/2018 [...] of this encounter (statuses as of 08/17/2022) [facility] [facility] Narrative* Problem Noted [...] and growth scan in 3-4 weeks per [facility]. Leanne Rascon MD Low-lying placenta 12/29/2017 05/23/2018 [...] of this encounter (statuses as of 09/15/2022) [facility] History of Past illness Narrative* Problem Noted Date Resolved Date Uterine size-date discrepancy in third trimester 03/07/2018 05/23/2018 Overview: 04/18/18 - BPP = 8/8, EFW = 6%ile, SULEIMAN = 7. Agnieszka Torres APRN.[facility] March 07, 2018 EFW is 8%. HC is 1 standard deviation lower than mean. Still within range for normal and intracranial structures are normal. Weekly BPPs and growth scan in 3-4 weeks per [facility]. Leanne Rascon MD Low-lying placenta 12/29/2017 05/23/2018 [...] of this encounter (statuses as of 10/07/2022) [facility] History of Past illness Narrative* Problem Noted Date Resolved Date Uterine size-date discrepancy in third trimester 03/07/2018 05/23/2018 Overview: 04/18/18 - BPP = 8/8, EFW = 6%ile, SULIEMAN = 7. Agnieszka Torres APRN.[facility] March 07, 2018 EFW is 8%. HC is 1 standard deviation lower than mean. Still within range for normal and intracranial structures are normal. Weekly BPPs and growth scan in 3-4 weeks per [facility]. Leanne Rascon MD Low-lying placenta 12/29/2017 05/23/2018 [...] of this encounter (statuses as of 11/10/2022) [facility] History of Past illness Narrative* Problem Noted [...] and growth scan in 3-4 weeks per [facility]. Leanne Rascon MD Low-lying placenta 12/29/2017 05/23/2018 [...] of this encounter (statuses as of 11/01/2022) [facility] History of Past illness Narrative* Problem Noted [...] and growth scan in 3-4 weeks per [facility]. Leanne Rascon MD Low-lying placenta 12/29/2017 05/23/2018 [...] of this encounter (statuses as of 11/17/2022) [facility] History of Past illness Narrative* Problem Noted Date Diagnosed Date Resolved Date Uterine size-date discrepanc y in third trimester 03/07/2018 05/23/2018 Overview: 04/18/18 - BPP = 8/8, EFW = 6%ile, SULEIMAN = 7. Agnieszka Torres, [employer] ACTOR.[facility] March 07, 2018 EFW is 8%. HC is 1 standard deviation lower than mean. Still within range for normal and intracranial structures are normal. Weekly BPPs and growth scan in 3-4 weeks per [facility]. Leanne Rascon MD Low-lying placenta 12/29/2017 8 [...] of this encounter (statuses as of 12/14/2022) [facility] History of Past illness Narrative* Problem Noted [...] and growth scan in 3-4 weeks per [facility]. Leanne Rascon MD Low-lying placenta 12/29/2017 8 [...] of this encounter (statuses as of 12/23/2022) [facility] History of Past illness Narrative* Problem Noted Date Diagnosed Date Resolved Date Uterine size-date discrepanc y in third trimester 03/07/2018 05/23/2018 Overview: 04/18/18 - BPP = 8/8, EFW = 6%ile, SULEIMAN = 7. Agnieszka Torres, [employer]DEVIL[employer] ACTOR.[facility] March 07, 2018 EFW is 8%. HC is 1 standard deviation lower than mean. Still within range for normal and intracranial structures are normal. Weekly BPPs and growth scan in 3-4 weeks per [facility]. Leanne Rascon MD Low-lying placenta 12/29/2017 8 [...] of this encounter (statuses as of 02/24/2023) [facility] note* Diagnosis Depression with anxiety Dysthymic disorder EMILIANO (generalized anxiety disorder) Generalized anxiety disorder documented in this encounter [facility] note* Diagnosis Depression with anxiety Dysthymic disorder EMILIANO (generalized anxiety disorder) Generalized anxiety disorder documented in this encounter [facility] note* Diagnosis Acute cough- Primary documented in this encounter [facility] note* Diagnosis EMILIANO (generalized anxiety disorder)- Primary [...] Neck pain Cervicalgia [facility] Diagnosis Depression with anxiety- Primary Dysthymic disorder EMILIANO (generalized anxiety disorder) Generalized anxiety disorder Adjustment insomnia Transient disorder of initiating or maintaining sleep documented in this encounter [facility] note* Diagnosis Acquired hypothyroidism- Primary Unspecified hypothyroidism documented in this encounter [facility] note* Diagnosis Strep throat- Primary Streptococcal sore throat Sore throat Acute pharyngitis URI, acute Acute upper respiratory infections of unspecified site [facility]* Diagnosis Medication monitoring encounter- Primary Encounter for therapeutic drug monitoring documented in this encounter [facility] note* Diagnosis Depression with anxiety Dysthymic disorder EMILIANO (generalized anxiety disorder) Generalized anxiety disorder documented in this encounter [facility] note* Diagnosis Depression with anxiety Dysthymic disorder EMILIANO (generalized anxiety disorder) Generalized anxiety disorder documented in this encounter [facility] Reason for Referral Specialty Diagnoses / Procedures Referred By Du monte Referred To Contact Merlyn Castrejon APRN.[employer] [address] [place] [address] Referral ID Status Reason Start Date Expiration Date Visits Re quested Visits Authorized [id number] Closed 1 1 Specialty Diagnoses / Procedures Referred By Du monte Referred To Contact Orthopedics Diagnoses Chronic wrist pain, right De Quervain's disease (radial styloid tenosynovitis) Procedures CONSULT TO ORTHOPAEDICS OFFICE/OUTPATIENT NEW HIGH MDM 60-74 MINUTES Riddhi Snow MD [address] [place] [address] Referral ID Status Reason Start Date Expiration Date Visits Requested Visits Authorized [id number] Authorized PCP Requested Referral 2 04/25/2023 1 1 Specialty Diagnoses / Procedures Referred By Contac t Referred To Contact XR IMAGING Diagnoses Chronic wrist pain, right Procedures XR WRIST GENERAL 3V PA/LAT/OBL RIGHT RADEX WRIST COMPLETE MINIMUM 3 VIEWS Riddhi Snow MD [address] [place] [address] Xr Imaging Referral ID Status Reason Start Date Expiration Date Visits Requested Visits Authorized [id number] Pending Review Auto-Generat ed Referral 2 05/25/2023 1 1 Specialty Diagnoses / Procedures Referred By Contac t Referred To Contact XR IMAGING Diagnoses Daily headache Neck pain Procedures XR CERV OTHER 4V AP/LAT/OBL RADEX SPINE CERVICAL 4 OR 5 VIEWS Riddhi Snow MD [address] [place] [address] Xr Imaging Referral ID Status Reason Start Date Expiration Date Visits Requested Visits Authorized [id number] Pending Review Auto-Generat ed Referral 2 05/25/2023 [...] or prosecute any alcohol or drug abuse patient.[facility] event this information is protected by the Federal Confidentiality of Alcohol and Drug Abuse Patient Records regulations: The Federal rules restrict any use of the information to criminally investigate or prosecute any alcohol or drug abuse patient.[facility] the event this information is protected by the Federal Confidentiality of Alcohol and Drug Abuse Patient Records regulations: The Federal rules restrict any use of the information to criminally investigate or prosecute any alcohol or drug abuse patient.[facility] the event this information is protected by the Federal Confidentiality of Alcohol and Drug Abuse Patient Records regulations: The Federal rules restrict any use of the information to criminally investigate or prosecute any alcohol or drug abuse patient.[facility] the event this information is protected by the Federal Confidentiality of Alcohol and Drug Abuse Patient Records regulations: The Federal rules restrict any use of the information to criminally investigate or prosecute any alcohol or drug abuse patient.[facility] the event this information is protected by the Federal Confidentiality of Alcohol and Drug Abuse Patient Records regulations: The Federal rules restrict any use of the information to criminally investigate or prosecute any alcohol or drug abuse patient.[facility] the event this information is protected by the Federal Confidentiality of Alcohol and Drug Abuse Patient Records regulations: The Federal rules restrict any use of the information to criminally investigate or prosecute any alcohol or drug abuse patient.[facility] the event this information is protected by the Federal Confidentiality of Alcohol and Drug Abuse Patient Records regulations: The Federal rules restrict any use of the information to criminally investigate or prosecute any alcohol or drug abuse patient.[facility] the event this information is protected by the Federal Confidentiality of Alcohol and Drug Abuse Patient Records regulations: The Federal rules restrict any use of the information to criminally investigate or prosecute any alcohol or drug abuse patient.[facility] the event this information is protected by the Federal Confidentiality of Alcohol and Drug Abuse Patient Records regulations: The Federal rules restrict any use of the information to criminally investigate or prosecute any alcohol or drug abuse patient.[facility] the event this information is protected by the Federal Confidentiality of Alcohol and Drug Abuse Patient Records regulations: The Federal rules restrict any use of the information to criminally investigate or prosecute any alcohol or drug abuse patient.[facility] the event this information is protected by the Federal Confidentiality of Alcohol and Drug Abuse Patient Records regulations: The Federal rules restrict any use of the information to criminally investigate or prosecute any alcohol or drug abuse patient.[facility] the event this information is protected by the Federal Confidentiality of Alcohol and Drug Abuse Patient Records regulations: The Federal rules restrict any use of the information to criminally investigate or prosecute any alcohol or drug abuse patient.[facility] the event this information is protected by the Federal Confidentiality of Alcohol and Drug Abuse Patient Records regulations: The Federal rules restrict any use of the information to criminally investigate or prosecute any alcohol or drug abuse patient.[facility] the event this information is protected by the Federal Confidentiality of Alcohol and Drug Abuse Patient Records regulations: The Federal rules restrict any use of the information to criminally investigate or prosecute any alcohol or drug abuse patient.[facility] the event this information is protected by the Federal Confidentiality of Alcohol and Drug Abuse Patient Records regulations: The Federal rules restrict any use of the information to criminally investigate or prosecute any alcohol or drug abuse patient.[facility] the event this information is protected by the Federal Confidentiality of Alcohol and Drug Abuse Patient Records regulations: The Federal rules restrict any use of the information to criminally investigate or prosecute any alcohol or drug abuse patient.[facility] the event this information is protected by the Federal Confidentiality of Alcohol and Drug Abuse Patient Records regulations: The Federal rules restrict any use of the information to criminally investigate or prosecute any alcohol or drug abuse patient.[facility] the event this information is protected by the Federal Confidentiality of Alcohol and Drug Abuse Patient Records regulations: The Federal rules restrict any use of the information to criminally investigate or prosecute any alcohol or drug abuse patient.[facility] Reason for Visit ([facility] ed section and content) Reason Onset [...] 11/17/2022 Reason Comments Received Outside Medical Records [facility] ED 12/13/22 Care Teams (unrecognized sec tion and content) Analytical Chemistry Teacher Relationship Specialty Start Date End Date Riddhi Snow MD [address] [place] [address] PCP - General Family Practice 10/27/20 Analytical Chemistry Teacher Relationship Specialty Start Date End Date Riddhi Snow MD [address] [place] [address] PCP - General Family Practice 10/27/20 Analytical Chemistry Teacher Relationship Specialty Start Date End Date Riddhi Snow MD [address] [place] [address] PCP - General Family Medicine 10/27/20 Analytical Chemistry Teacher Relationship Specialty Start Date End Date Riddhi Snow MD [address] [place] [address] PCP - General Family Medicine 10/27/20 Analytical Chemistry Teacher Relationship Specialty Start Date End Date Riddhi Snow MD [address] [place] [address] [place] [address] PCP - General Family Medicine 10/27/20 Analytical Chemistry Teacher Relationship Specialty Start Date End Date Riddhi Snow MD [address] [place] [address] PCP - General Family Medicine 10/27/20 Analytical Chemistry Teacher Relationship Specialty Start Date End Date Riddhi Snow MD [address] [place] [address] PCP - General Family Medicine 10/27/20 Analytical Chemistry Teacher Relationship Specialty Start Date End Date Riddhi Snow MD [address] [place] [address] [place] [address] PCP - General Family Medicine 10/27/20 Analytical Chemistry Teacher Relationship Specialty Start Date End Date Riddhi Snow MD [address] [place] [address] PCP - General Family Medicine 10/27/20 Analytical Chemistry Teacher Relationship Specialty Start Date End Date Riddhi Snow MD [address] [place], [place] [id number] PCP - General Family Medicine 10/27/20 Analytical Chemistry Teacher Relationship Specialty Start Date End Date Riddhi Snow MD [address] [place], [place] [id number] PCP - General Family Medicine 10/27/20 Analytical Chemistry Teacher Relationship Specialty Start Date End Date Riddhi Snow MD [address] [place], [place] [id number] PCP - General Family Medicine 10/27/20 Analytical Chemistry Teacher Relationship Specialty Start Date End Date Riddhi Snow MD [address] [place], [place] [id number] PCP - General Family Medicine 10/27/20 Analytical Chemistry Teacher Relationship Specialty Start Date End Date Riddhi Snow MD [address] [place], [place] [id number] PCP - General Family Medicine 10/27/20 Analytical Chemistry Teacher Relationship Specialty Start Date End Date Riddhi Snow MD [address] [place], [place] [id number] PCP - General Family Medicine 10/27/20 Analytical Chemistry Teacher Relationship Specialty Start Date End Date Riddhi Snow MD [address] [place], [place] [phone] PCP - General Family Medicine 10/27/20 INFORMATION [...] BE BASED ON THE PRIMARY CLINICAL RECORDS. [facility] [employer] [facility]. provides no warranty or guarantee of the accuracy or completeness of information in this document.
== END 2023-07-05 19:48 | disposition left against medical advice (07) ==
LOC: ED 19:38
PROVIDERS: Emergency Provider Emergency Medicine; PCP Family Medicine; Visit Provider Emergency Medicine
DX: K02.9 Dental caries, unspecified (principal); F17.210 Nicotine dependence, cigarettes, uncomplicated; K08.89 Other specified disorders of teeth and supporting structures
CPT/HCPCS: 99282

== ENCOUNTER 2024-06-24 07:17 | Emergency (ER) | payer MEDICAID, SELFPAY ==
[2024-06-24 07:18] VITALS: BP 154/77; PULSE 86; RESP 16; TEMP 36.9; O2SAT 100
--- NOTE | 2024-06-24 08:09 | RAD_ITS ---
STUDY: X-RAY - LEFT FEMUR REASON FOR STUDY: Female, 34 years old. Fall. Recent anterior cruciate ligament repair. TECHNIQUE: 3 view(s) of the femur. COMPARISON: None. FINDINGS: The patient is status post anterior cruciate ligament repair. Joint effusion. Soft tissue swelling. RAD/Femur Min 2 Views IMPRESSION: Status post anterior cruciate ligament repair. Joint effusion and soft tissue swelling. Electronically Signed: Maverick Zaldivar MD at 9:00 EST ,
--- NOTE | 2024-06-24 08:09 | RAD_ITS ---
STUDY: X-RAY - LEFT KNEE REASON FOR EXAM: Female, 34 years old. Injury and s/p ACL repair TECHNIQUE: 3 view(s) of the knee. COMPARISON: None. FINDINGS: Patient is status post anterior cruciate ligament repair. Normal proximal tibiofibular articulation. Normal medial femorotibial compartment. Normal lateral femorotibial compartment. Normal patellofemoral articulation. Small joint effusion and soft tissue swelling. RAD/Knee 3 Views IMPRESSION: Status post anterior cruciate ligament repair. Small joint effusion and soft tissue swelling. Electronically Signed: Maveirck Zaldivar MD at 9:01 EST ,
--- NOTE | 2024-06-24 08:11 | ED.VIS.LOWEX ---
HPI History of Present Illness HPI Narrative: 34-year-old female URI symptoms with irritation of her right eye now her left. No exposure to pinkeye. Wears contacts. Does not have glasses. Today she had her contacts out and slipped injuring her left knee and left thigh. She had recent ACL repair surgery done in the [facility] 2 weeks ago. Complaining of pain in her thigh and knee. Chief Complaint: Lower Extremity Injury Informant: patient Occured/Mechanism Mechanism/Context: Yes injury Onset/Context/Timing Onset: Yesterday Context: Sudden Onset Timing: Continuous Quality of Pain: Sharp Current Severity: Moderate Maximum Severity: Moderate Associated Symptoms Associated Symptoms: Negative for Parasthesia, Weakness or Loss of Funtion Narrative Narrative: There is a-year-old female status post left knee ACL repair about 2 weeks ago to [facility]. Recent URI. Irritation to both eyes. Last night was using her crutches slipped and fell injuring her left thigh and left knee. Denies other complaints. Prior similar symptoms: No Recent Illness/Hospitalization: No PFSH PFSH Home Medications ?Medication ?Instructions ?Recorded ?Last Taken ?Type omeprazole 20 mg tablet,delayed 20 mg PO heartburn 05/06/18 05/05/18 21:00 History release 20 mg vit 122-ferrous fumarate 1 ea PO 05/06/18 05/05/18 21:00 History 27 mg iron-folic acid 800 mcg 1 tab tablet ( Multi) Ibuprofen [Motrin] 800 mg PO TID PRN PRN Pain #60 tabs 05/07/18 Unknown Rx penicillin V potassium 500 mg 500 mg PO 4X/DAY #39 tabs 05/08/23 Unknown Rx tablet ondansetron 4 mg disintegrating 4 mg PO Q6H PRN nausea and 06/11/23 Unknown Rx tablet vomiting #7 tabs penicillin V potassium 500 mg 500 mg PO 4X/DAY 10 days #40 tabs 07/05/23 Unknown Rx tablet penicillin V potassium 500 mg 500 mg PO 4X/DAY #40 tabs 06/24/24 Unknown Rx tablet Allergy/AdvReac Type Severity Reaction Status Date / Time No Known Allergies Allergy Verified 06/24/24 07:17 Social History Smoking Status: Current every day smoker tobacco type: cigarettes ROS ROS ED ROS Narrative URI. Eye irritation. Constitutional Constitutional ED: Denies chills or fever(s) Eyes Eyes: Denies blurry vision ENT ENT ED: Denies ear pain Cardiovascular Cardiovascular: Denies chest pain Respiratory/Chest Respiratory/Chest: Reports cough Gastrointestinal Gastrointestinal: Denies abdominal pain Genitourinary Genitourinary ED: Denies dysuria Musculoskeletal Musculoskeletal: Denies arthralgias Integumentary Denies abscess Neurologic Neurologic: Denies headache(s) Psychiatric Psychiatric: Denies anxiety Endocrine Endocrinology: Denies polydipsia Hematologic/Lymphatic Hematologic/Lymphatic: Denies easy bleeding Allergic/Immunologic Allergic/Immunologic ED: Denies mouth swelling EXAM Physical Exam Narrative Exam Narrative: 34-year-old female vital signs stable afebrile. HEENT exam pupils round react light. Both eyes are irritated mildly red. There is no pus or discharge. There is no swelling of the upper or lower lids. There is no orbital or periorbital cellulitis. No proptosis. Extra motions are intact. No obvious foreign body. No preauricular lymphadenopathy. Mouth no signs of infection. No trouble swallowing or breathing. Patient has poor dentition and her premolars and molars is allowed areas of cavities and decay. No gingival abscess. Mild inflammation. No trouble opening closing her mouth. Neck nontender. Back nontender. Lungs clear to auscultation bilaterally. Heart regular rhythm no murmur. Chest wall nontender. Abdomen soft nontender. Pelvis intact. Left hip nontender. Right lower extremity both upper extremities nontender normal range of motion. Left lower extremity the knee she has multiple bandages on from her prior surgery wound site. She is unable to lift the leg off the bed states that she has not been able to do that since surgery. She has normal dorsi and plantarflexion. Normal touch sensation in the left foot. The left lower leg ankle and foot are nontender nonswollen. The knee itself is not very swollen. She has mild tenderness on the lower anterior thigh and lateral knee. The ACL and PCL appear to be intact. MCL and LCL appear to be intact. I cannot assess the quadriceps patellar tendon or infrapatellar tendon because she cannot lift her leg off the bed. She said this is not new it has been this way since the surgery. Hamstring is nontender. Left hip is nontender. No shortening or rotation. Left foot is neurovascularly intact. Const Vital Signs: 06/24/24 07:18 06/24/24 09:17 Temperature 98.5 F Temperature Source Oral Pulse Rate 86 88 Respiratory Rate 16 16 Blood Pressure 154/77 H Blood Pressure Mean 102 Pulse Ox 100 97 Oxygen Delivery Method Room Air Positive well nourished and well developed; Negative for cachectic or contractures General Appearance ED: well developed and NAD; Negative for cachectic or contractures Nutritional Appearance: Negative for cachectic HEENT Reports moist mucous membranes normocephalic and atraumatic; Negative for trauma or tenderness Eyes PERRL Neck full ROM and supple Thyroid: Negative for tender Chest Wall inspection of chest normal and palpation of chest normal Resp normal respiratory effort, no retractions and clear to auscultation bilaterally Cardio regular rate, regular rhythm, S1 normal heart sound, S2 normal heart sound and no murmurs Rate: Negative for bradycardia or tachycardic Rhythm: Negative for abnormal rhythm Bruits: Negative for other GI non-tender, non-distended and no masses Auscultation: normoactive bowel sounds Palpation: soft; Negative for tender, guarding or rebound tenderness present Back/Spine no CVA tenderness General Back: Negative for CVA tenderness Cervical Spine: Negative for cervical spine tenderness Thoracic Spine / Upper Back: Negative for thoracic spinal tenderness Lumbar Spine / Lower Back: Negative for lumbar spinal tenderness Extremity normal to inspection and full ROM Extremity Narrative: Except for the left knee. Well-healing surgical sites. Bandages in place. ACL and PCL appear to be intact as do the MCL and LCL but is a limited exam due to her discomfort. There is a limited swelling. No large effusion. No bony deformity. She is unable to lift her leg off the bed I cannot assess her quadriceps patellar and for patellar tendon due to she cannot do this since she has not been able to since the surgery. Dorsi and plantarflexion is intact of her left foot. There is mild tenderness to her left lower thigh. I do not feel an obvious defect in the quadriceps patellar tendon but again difficult to assess. General Extremety ED: Yes weight-bearing difficulty General Extremity: weight-bearing difficulty Neuro oriented x3, CN's II-XII intact bilaterally, moves all extremities and no sensory deficits noted Sensorium / Orientation: alert, oriented to person, oriented to place and oriented to time; Negative for orientation impaired or confused Motor Exam: strength 5/5 throughout Psych mental status grossly normal Skin No no wounds Skin Narrative: Well-healing surgical wounds of the left knee. Lesions: no lesions Rashes: no rashes Trauma: Negative for abrasion or laceration MDM MDM MDM Narrative Medical decision making narrative: 34-year-old female has suspected viral conjunctivitis or pinkeye of both eyes. She will be placed on based trace ophthalmic ointment. Keep her contacts out. Follow-up with her digital advisor if not improving. Recent ACL surgery left knee repair. Fell and injured it. She is unable to lift her legs so there is a concern that she has a quadriceps patellar injury but she says been this way since surgery. I am obtaining an x-ray of her left femur and left knee. She will need definite follow-up with her orthopedic physician. She does not want a thing for pain. Repeat exam unchanged she is in her knee brace. She cannot do a full knee exam at this time to examine too much discomfort to flex and extend it. I think it is unlikely that she would have a quadriceps patellar tendon rupture but I cannot really assess that. I went over the x-rays with her which were unremarkable of her knee and femur. Patient be discharged to follow-up with ophthalmology if her eyes are not improving. It appears to just be a viral conjunctivitis. Leave her contacts out. Eye ointment. Follow-up with orthopedic surgeon they rescheduled today's appointment for . And a dentist to soon as possible. Radiography Diagnostic Testing: Clinical Impression(s) from Imaging Studies Femur X-Ray 06/24/24 08:09 IMPRESSION: Status post anterior cruciate ligament repair. Joint effusion and soft tissue swelling. Electronically Signed: Maverick Zaldivar MD at 9:00 EST , Knee X-Ray 06/24/24 08:09 IMPRESSION: Status post anterior cruciate ligament repair. Small joint effusion and soft tissue swelling. Electronically Signed: Maverick Zaldivar MD at 9:01 EST , Discharge Plan Triage Chief Complaint: Lower Extremity Injury Other Complaint: Cold Sx Eye Problem ED Provider: Juanjo Small Dx/Rx/DC Orders Clinical Impression: Fall, Acute knee pain, History of knee surgery, Conjunctivitis, Dental cavities Instructions: ED Conjunctivitis, Viral, ED Dental Cavity, ED Knee Pain of Uncertain Cause Prescriptions: New penicillin V potassium 500 mg tablet 500 mg PO 4X/DAY Qty: 40 0RF No Action omeprazole 20 MG tablet,delayed release (DR/EC) 20 mg PO [id number] [ Multi] 1 EACH tablet 1 ea PO Ibuprofen [Motrin] 800 MG tablet 800 mg PO TID PRN PRN (Reason: Pain) Qty: 60 1RF penicillin V potassium 500 mg tablet 500 mg PO 4X/DAY 10 Days Qty: 40 0RF penicillin V potassium 500 mg tablet 500 mg PO 4X/DAY Qty: 39 0RF ondansetron 4 mg tablet,disintegrating 4 mg PO Q6H PRN (Reason: nausea and vomiting) Qty: 7 0RF Primary Care Provider: Jayden Wooten Referrals: Jayden Wooten MD [Primary Care Provider] - Trip Clark MD [Med Staff - Active Staff] - 3-5 Days if not improving Activity Restrictions/Additional Instructions: Leave your contacts out just irritate your eyes and make them worse. The antibiotic ointment to each eye twice a day till gone. Follow-up with [facility] if your eyes are not improving. Tylenol and Motrin for pain. The antibiotic penicillin 4 times a day for 10 days for your cavities in your mouth. And dental pain. There may be an underlying infection. Follow-up with your dentist as soon as possible. Follow-up with your [facility] orthopedic surgeon with your scheduled appointment on . Print Language: Azeri Disposition Disposition: Home, Self Care
[2024-06-24 09:17] VITALS: PULSE 88; RESP 16; O2SAT 97
[2024-06-24] MEDS: Ibuprofen 600 MG Tablet PO (10:54)
[2024-06-24] MEDS: Penicillin Vk 250 MG Tablet 500 MG PO (11:40)
[2024-06-24] MEDS: Bacitracin/Polymin B Sulfate 3.5 GM OPTH.TUBE 1 APPLIC EACH EYE (11:40)
== END 2024-06-24 11:50 | disposition home or self-care (01) ==
PROVIDERS: Emergency Provider Emergency Medicine; PCP Family Medicine; Visit Provider Emergency Medicine
DX: M25.562 Pain in left knee (principal); K02.9 Dental caries, unspecified; H10.9 Unspecified conjunctivitis; W01.0XXA Fall on same level from slipping, tripping and stumbling without subsequent striking against object, initial encounter; F17.210 Nicotine dependence, cigarettes, uncomplicated
CPT/HCPCS: 73552; 73562; 99284